=== PATIENT | female | born 1950 | race Caucasian/White ===

== ENCOUNTER 2016-09-21 05:40 | Outpatient (CLI) | payer MEDICARE, OTHER ==
[~2016-09-21] VITALS: Ht 154.9 cm; Wt 80.8 kg
[~2016-09-21 05:40] MED LIST: ACET-93 PO; ATOR10TA66 PO; DICL100G31 TP; ENOX80DI7 SC; FEXO180T84 PO; HYDR-3730 PO; HYDR-3812 PO; HYDR-3820 PO; HYDR200T46 PO; LEVO137T2 PO; LISI40TA PO; LORA1TAB PO; METF500T4 PO; NIFE60TA64 PO; OMEP20CA12 PO; TRAM50TA2 PO; VENL150C98 PO; VENL75CA93 PO; WARF-48 PO; WARF7.5T49 PO
[2016-09-21] MEDS ORDERED: LORA1TAB PO (12:52)
[2016-09-21] MEDS ORDERED: HYDR-3781 PO (12:52)
[2016-09-21] MEDS ORDERED: ATOR20TA66 PO (12:52)
[2016-09-21] MEDS ORDERED: RIZA10TA37 PO (12:52)
[2016-09-21] MEDS ORDERED: LEVO150T6 PO (12:52)
[2016-09-21 13:10] VITALS: BP 130/62
== END 2016-09-21 14:37 | disposition home or self-care (01) ==
LOC: PREOP 05:40
PROVIDERS: ATTEND Podiatrist
DX: Z01.818 Encounter for other preprocedural examination (principal); Z11.2 Encounter for screening for other bacterial diseases; T84.84XA Pain due to internal orthopedic prosthetic devices, implants and grafts, initial encounter
CPT/HCPCS: 87081

== ENCOUNTER 2016-09-23 09:05 | Day surgery (SDC) | payer MEDICARE, OTHER ==
[~2016-09-23] VITALS: Ht 154.9 cm; Wt 80.8 kg
[~2016-09-23 09:05] MED LIST changes: +ATOR20TA66 PO; +HYDR-3781 PO; +LEVO150T6 PO; +RIZA10TA37 PO
[2016-09-23 09:30] VITALS: BP 126/66
[2016-09-23] MEDS ORDERED: ceFAZolin 2 GM/NS 50 ML IV ONE (09:30)
[2016-09-23] MEDS ORDERED: FAMOTIDINE 20MG/2ML IV (PEPCID) ONE (09:35)
[2016-09-23] MEDS ORDERED: ONDANSETRON 4 MG/2 ML (SDV) Z0FRAN ONE ×2 (09:35→09:42)
[2016-09-23] MEDS ORDERED: BUPIVACAINE 0.5% 30 ML (SENSORCAINE) VIAL ONE (09:37)
[2016-09-23 09:41] LABS: PROTHROMBIN TIME PATIENT 12.8 SEC (12.2-14.7)
[2016-09-23] MEDS ORDERED: LACTATED RINGERS 1,000 ML IV PRN (09:41)
[2016-09-23] MEDS ORDERED: proPOfol 200 MG/20 ML (DIPRIVAN) VIAL IV ONE (09:42)
[2016-09-23] MEDS ORDERED: LACTATED RINGERS 1,000 ML IV ONE ×2 (09:42→10:32)
[2016-09-23] MEDS ORDERED: fentaNYL INJECTION 100 MCG/2 ML AMP ONE (09:42)
[2016-09-23] MEDS ORDERED: LIDOCAINE PF 2% 5 ML (XYLOCAINE) VIAL ONE (09:42)
[2016-09-23] MEDS ORDERED: SEVOFLURANE (ULTANE) 15 ML INHAL SOLN ONE ×6 (09:42→11:16)
[2016-09-23] MEDS ORDERED: ONDANSETRON 4 MG/2 ML (SDV) Z0FRAN IV ONE (09:45)
[2016-09-23] MEDS ORDERED: FAMOTIDINE 20MG/2ML IV (PEPCID) IV ONE (09:45)
[2016-09-23] MEDS ORDERED: MIDAZOLAM 2 MG/2 ML (VERSED) VIAL ONE (09:52)
--- NOTE | 2016-09-23 09:55 | Progress Note-Pre Operative ---
Pre-Operative Progress Note H&P Reviewed The H&P was reviewed, patient examined and no changes noted. Date Seen by Provider: Sep 23, 2016 Time Seen by Provider: :55 Date H&P Reviewed: Sep 23, 2016 Time H&P Reviewed: :55 Pre-Operative Diagnosis: Painful Retained Hardware RLE INES SANTILLAN DPM Sep 23, 2016 09:55
[2016-09-23] MEDS ORDERED: ENOX30DI9 SQ (10:05)
[2016-09-23] MEDS ORDERED: OXYC-201 PO (11:24)
--- NOTE | 2016-09-23 11:26 | Discharge Inst-Surgical ---
Discharge Inst-Surgical Consults/Follow Up Patient Instructions: KEEP DRESSING CLEAN DRY AND INTACT. DO NO REMOVE DRESSING. WEAR CAM BOOT AT ALL TIMES OF WEIGHT BEARING. FOLLOW UP WITH DR SANTILLAN IN 2 WEEKS. [phone] INES SANTILLAN DPM Sep 23, 2016 11:26
[2016-09-23] MEDS ORDERED: morphine INJ 10 MG/ML 1ML (SYR OR VIAL) IVP PRN (11:30)
[2016-09-23] MEDS ORDERED: ONDANSETRON 4 MG/2 ML (SDV) Z0FRAN IVP PRN (11:30)
[2016-09-23] MEDS ORDERED: morphine INJ 10 MG/ML 1ML (SYR OR VIAL) ONE (11:43)
[2016-09-23 12:30] VITALS: BP 124/70
[2016-09-23] MEDS ORDERED: HYDROcodone/APAP 10 MG/325 MG (LORTAB) TAB PO ONE (13:00)
[2016-09-23 13:05] VITALS: BP 122/69
[2016-09-23 13:50] VITALS: BP 116/66
[2016-09-23 14:04] VITALS: BP 116/66
--- NOTE | 2016-09-25 09:00 | OPERATIVE REPORT ---
PROCEDURE PHYSICIAN: INES SANTILLAN DATE OF PROCEDURE: 09/23/2016 SURGEON: Dr. Santillan TOOL AND FIXTURE REPAIRER: None. PREOPERATIVE DIAGNOSIS: Painful retained hardware of the right ankle. POSTOPERATIVE DIAGNOSIS: Painful retained hardware of the right ankle. PROCEDURE PERFORMED: Removal of hardware, right ankle. ANESTHESIA: General anesthesia. HEMOSTASIS: Pneumatic thigh tourniquet at 300 mmHg. BLOOD LOSS: Minimal. MATERIALS USED: 3-0 Vicryl, 3-0 nylon. INTRAOPERATIVE INJECTABLES: 20 mL of half percent Marcaine plain. COMPLICATIONS: None. INDICATIONS FOR THE PROCEDURE: The patient Ms. Serena Denson is a 65-year-old female with painful hardware of the right ankle. She has exhausted all conservative measures at this time, requiring surgical intervention. She has signed consent prior to being taken to the OR. DESCRIPTION OF THE PROCEDURE: Under mild sedation, the patient was brought into the OR and placed on the operating table in the supine position. Following administration of general anesthesia, a pneumatic thigh tourniquet was placed on the right lower extremity. The right lower extremity was scrubbed, prepped and draped in an aseptic manner. An appropriate timeout was performed. Right lower extremity was identified as the surgical site. Next, approximately 6 cm incision was made over the lateral aspect of the fibula. The incision was deepened down to the level of the hardware with care being taken to avoid all major vascular structures. All bleeders were cauterized and ligated as necessary. The hardware was then resected and passed from the surgical field. The wound was flushed with copious amounts sterile saline and the deep tissue was proximally closed with 3-0 Vicryl. Subcutaneous tissues approximated with 3-0 Vicryl and skin was approximated at the wound edges using 3-0 nylon. 20 mL of half percent Marcaine plain were injected in the foot and the foot was dressed with a dry sterile dressing, consisting of 4 x 4's, Kerlix, and an Altaf wrap. The patient tolerated the procedure and anesthesia well. She was transferred from OR to recovery with vital signs stable, neurovascular status intact to the right lower extremity. Job ID: [id number] Dictated Date: 09/23/2016 11:21:35 Home Service Advisor Date: 09/25/2016 08:50:32 / patricia
== END 2016-09-23 14:04 | disposition home or self-care (01) ==
LOC: SDC 09:05
PROVIDERS: ATTEND Podiatrist
DX: T84.84XA Pain due to internal orthopedic prosthetic devices, implants and grafts, initial encounter (principal); I10 Essential (primary) hypertension; E78.5 Hyperlipidemia, unspecified; G47.33 Obstructive sleep apnea (adult) (pediatric); M79.7 Fibromyalgia; E11.9 Type 2 diabetes mellitus without complications; K21.9 Gastro-esophageal reflux disease without esophagitis; Z86.718 Personal history of other venous thrombosis and embolism; Z79.01 Long term (current) use of anticoagulants; Z79.899 Other long term (current) drug therapy
CPT/HCPCS: 36415; 82962; 85610; 85730

== ENCOUNTER → 2016-10-09 | Outpatient (CLI) | payer MEDICARE, OTHER ==
[~2016-10-09] MED LIST changes: +ENOX30DI9 SQ; +OXYC-201 PO
== END ==
LOC: CARD 07:38
PROVIDERS: ATTEND Internal Medicine Cardiovascular Disease
DX: D68.61 Antiphospholipid syndrome (principal); R07.89 Other chest pain; E11.9 Type 2 diabetes mellitus without complications; E03.9 Hypothyroidism, unspecified; E78.2 Mixed hyperlipidemia; E66.9 Obesity, unspecified
CPT/HCPCS: 93306

== ENCOUNTER → 2016-10-19 | Outpatient (CLI) | payer MEDICARE, OTHER ==
[~2016-10-19] MED LIST changes: +REGADENOSON 0.4 MG/5 ML SYR (LEXISCAN) IV ONE
[2016-10-19] MEDS: CATHETER FLUSH 10 ML SYR IV PRN ×2 (08:35→09:23)
[2016-10-19 09:21] VITALS: BP 107/57
--- NOTE | 2016-10-20 01:16 | STRESS TEST ---
DATE OF SERVICE: 10/19/2016 LEXISCAN MYOVIEW STRESS TEST REPORT: REFERRING PHYSICIAN: Dr. Bermudez. IN SUMMARY: The patient was injected with 10.46 mCi of technetium-99 Myoview and the resting images were obtained. Then, the patient received 0.4 mg of Lexiscan followed by 32.0 mCi of technetium-99 Myoview. Throughout the test, there were no EKG changes. The resting and stress images were reviewed and compared in the short axis, horizontal long axis, and vertical long axis views. Review of the images showed breast attenuation affecting the quality of the images. No significant ischemia or infarction was seen. SSS is 5, SDS 5, TID value 0.97. On the gated images, the left ventricle appeared to be normal size with normal contractility. Calculated ejection fraction 75%. CONCLUSION: 1. The patient tolerated Lexiscan well. 2. Breast attenuation affecting the quality of the images with no significant ischemia or infarction on SPECT images. 3. Normal left ventricular size with normal contractility. Calculated ejection fraction 75%. Job ID: [id number] DocumentID: [id number] Dictated Date: 10/19/2016 11:56:01 Basting Marker Date: 10/19/2016 12:59:25 Dictated By: DYLAN SAHU MD
== END ==
LOC: CARD 08:17
PROVIDERS: ATTEND Internal Medicine Cardiovascular Disease
DX: D68.61 Antiphospholipid syndrome (principal); R07.89 Other chest pain; E11.9 Type 2 diabetes mellitus without complications; E03.9 Hypothyroidism, unspecified; E78.2 Mixed hyperlipidemia; E66.9 Obesity, unspecified
CPT/HCPCS: 78452; 93017

== ENCOUNTER → 2017-03-09 | Outpatient (CLI) | payer MEDICARE, OTHER ==
[~2017-03-09] MED LIST changes: +ACHD5005 PO; -HYDR-3812 PO; -REGADENOSON 0.4 MG/5 ML SYR (LEXISCAN) IV ONE
--- NOTE | 2017-03-09 09:36 | Diagnostic Imaging Report ---
EXAMINATION: Magnetic resonance imaging of the right knee without intravenous contrast DATE: March 09, 2017. COMPARISON: None. INDICATION: 66-year-old female, right knee pain. History of fall in January 2016. TECHNIQUE: Multiplanar, multisequence non contrast enhanced MR imaging was accomplished. FINDINGS: MENISCI: There is an oblique undersurface tear involving the body and posterior horn of the medial meniscus. There is approximately 2 mm medial meniscal extrusion. There is a small free edge tear involving the body of the lateral meniscus. LIGAMENTS AND TENDONS: The anterior and posterior cruciate ligaments are intact. The medial collateral ligament is intact. The iliotibial band, mid third lateral capsular ligament, fibular collateral ligament, biceps femoris tendon and conjoined tendon are intact. The quadriceps tendon and patella ligament are intact. JOINT: There is very mild thinning and superficial irregularity of the mid weightbearing portion of the medial femoral condyle and subjacent medial tibial plateau. There is no knee joint effusion, prominent synovitis, or intra-articular body. BONE: There is unremarkable bone marrow signal. Specifically, negative for fracture, osteomyelitis, osteonecrosis, or marrow replacing process. BURSAE AND SOFT TISSUES: There is nonspecific soft tissue edema adjacent to the [id number]-[id number] aspect of the medial collateral ligament complex and near the pes anserine tendon insertions. This may relate to edema relating to medial meniscal pathology. IMPRESSION: 1. Oblique undersurface tear involving the body and posterior horn of the medial meniscus with 2 mm medial meniscal extrusion. 2. Very small free edge tear involving the body of the lateral meniscus. 3. Intact anterior and posterior cruciate ligaments. 4. Minimal medial compartment osteoarthritis. No knee joint effusion. 5. No acute fracture or bone contusion. Dictated by: Dictated on workstation # [id number]
== END ==
LOC: RAD 08:14
PROVIDERS: ATTEND Physician Assistant
DX: S83.241A Other tear of medial meniscus, current injury, right knee, initial encounter (principal); S83.281A Other tear of lateral meniscus, current injury, right knee, initial encounter; M17.11 Unilateral primary osteoarthritis, right knee; W19.XXXA Unspecified fall, initial encounter
CPT/HCPCS: 73721

== ENCOUNTER → 2017-07-13 | Outpatient (CLI) | payer MEDICARE, OTHER ==
[~2017-07-13] MED LIST changes: +CATHETER FLUSH 10 ML SYR IV PRN; +IOHEXOL 350 MG/ML 100 ML (OMNIPAQUE 350) VIAL IV ONE; -METF500T4 PO; +METF500T5 PO; +NS 250 ML (IVPB) BAG IV ONE; +RECEIVED CONTRAST (Hold Metformin) IV SCH
--- NOTE | 2017-07-13 10:12 | Diagnostic Imaging Report ---
PROCEDURE: CT abdomen with and without contrast. TECHNIQUE: Multiple contiguous axial CT images of the abdomen were obtained prior to and after intravenous administration of iodinated contrast. INDICATION: Adrenal gland mass. COMPARISON: None. FINDINGS: Included portions of the lung bases are clear. Adrenal glands have an unremarkable CT appearance. No distinct adrenal gland masses are identified. Kidneys show focal area of cortical thinning posteriorly involving the inferior pole on the left. Otherwise, kidneys are unremarkable. The liver, spleen, and pancreas have a normal CT appearance. Included small bowel loops are nondistended. Cecum and appendix are not included on this exam. There is scattered colonic diverticulosis. Note is made of focal area of pericolonic fat stranding surrounding a diverticulum of the ascending colon near the hepatic flexure (image 62, series 3). There is no loculated fluid collection, free fluid, nor free air within the abdomen. There is no pneumatosis nor portal venous gas. No abnormal mesenteric or retroperitoneal adenopathy is seen. There is moderate calcified aortic and arterial atherosclerosis. Bony structures show no acute abnormalities. IMPRESSION: 1. Unremarkable CT appearance of the adrenal glands. 2. Colonic diverticulosis with focal stranding surrounding the distal ascending colon. Appearance is suggestive of acute diverticulitis. Correlation with right upper abdominal quadrant pain is recommended. Colonic malignancy may also present in a similar manner. Further evaluation with colonoscopy or contrast enema is recommended. 3. Focal renal cortical thinning involving the left kidney as described above. Findings can be seen with prior infection or infarction. Dictated by: Dictated on workstation # [id number]
== END ==
LOC: RAD 07:37
PROVIDERS: ATTEND Internal Medicine
DX: E27.9 Disorder of adrenal gland, unspecified (principal); K57.30 Diverticulosis of large intestine without perforation or abscess without bleeding; I70.0 Atherosclerosis of aorta; N28.89 Other specified disorders of kidney and ureter
CPT/HCPCS: 74170

== ENCOUNTER 2018-05-24 05:42 | Outpatient (CLI) | payer MEDICARE, OTHER ==
[~2018-05-24] VITALS: Ht 154.9 cm; Wt 77.2 kg
[~2018-05-24 05:42] MED LIST changes: -CATHETER FLUSH 10 ML SYR IV PRN; -IOHEXOL 350 MG/ML 100 ML (OMNIPAQUE 350) VIAL IV ONE; +METF-397 PO; -METF500T5 PO; -NS 250 ML (IVPB) BAG IV ONE; -OXYC-201 PO; +OXYC1TAB16 PO; -RECEIVED CONTRAST (Hold Metformin) IV SCH
[2018-05-24] MEDS ORDERED: WARF6TAB49 PO ×2 (10:18)
== END 2018-05-24 10:22 | disposition home or self-care (01) ==
LOC: PREOP 05:42
PROVIDERS: ATTEND Specialist
DX: Z01.818 Encounter for other preprocedural examination (principal)

== ENCOUNTER 2018-05-25 11:26 | Day surgery (SDC) | payer MEDICARE, OTHER ==
[~2018-05-25] VITALS: Ht 154.9 cm; Wt 77.2 kg
[~2018-05-25 11:26] MED LIST changes: +WARF6TAB49 PO
[2018-05-25 11:30] VITALS: BP 140/73
[2018-05-25] MEDS ORDERED: MOXIFLOXACIN OPHTH SOLN 5 MG/ML 0.3 ML SYRINGE OP ONE (11:45)
[2018-05-25] MEDS ORDERED: POVIDONE (BETADINE) OPHTH SOLN 5% 30 ML OP ONE (11:45)
[2018-05-25] MEDS ORDERED: TIMOLOL MALEATE 0.5% 5 ML (TIMOPTIC) BTL OU PRN (11:45)
[2018-05-25] MEDS ORDERED: LIDOCAINE PF 1% 2 ML AMP IR PRN (11:45)
[2018-05-25] MEDS: TETRACAINE 0.5% OPHTH SOLN 4 ML BTL (SINGLE DOSE ONLY) OU PRN ×4 (11:50→12:15)
[2018-05-25] MEDS ORDERED: MIDAZOLAM 2 MG/2 ML (VERSED) VIAL ONE (11:59)
[2018-05-25] MEDS: CYCLOPENTOLATE 1% (CYCLOGYL) 2 ML DROPS OP SCH ×3 (12:02→12:15)
[2018-05-25] MEDS: PHENYLEPHRINE 10% OPHTH (NEO-SYN) 5 ML BTL OU SCH ×3 (12:02→12:15)
--- NOTE | 2018-05-25 12:09 | Ophthalmologist Pre-Op Note ---
Pre-Operative Progress Note H&P Reviewed The H&P was reviewed, patient examined and no changes noted. Date H&P Reviewed: May 25, 2018 Time H&P Reviewed: 12:09 Pre-Op Dx Cataract, Left Eye KATIUSKA SPANN MD May 25, 2018 12:09
--- NOTE | 2018-05-25 12:41 | Ophthalmology Operative Report ---
Cataract removal/placement IOL PREOPERATIVE DIAGNOSIS: Cataract Left Eye POSTOPERATIVE DIAGNOSIS: Cataract Left Eye PROCEDURE: Cataract removal and placement of posterior chamber implant, left eye SURGEON: Mike Spann ANESTHESIA: Topical with sedation COMPLICATIONS: None ESTIMATED BLOOD LOSS: Minimal DESCRIPTION OF PROCEDURE: After proper informed consent was obtained, the patient, a 67 female, was taken to the Operating Room and the left eye was anesthetized with tetracaine. The left eye was then prepped and draped in the usual manner. A wire lid speculum was placed. A paracentesis was made at the left hand position. Preservative free lidocaine was injected into the anterior chamber followed by viscoelastic. A clear corneal incision was made in the temporal position. A capsulorrhexis was preformed and the central nuclear and cortical material were removed. The posterior capsule was polished and an Jose R 18.0 AU00T0 was placed into the capsular bag. The residual viscoelastic was aspirated and balanced saline solution was injected into the anterior chamber. Moxifloxacin was injected into the anterior chamber. The wound was checked and found to be water tight. The patient tolerated the procedure well without complications. MIKE SPANN MD May 25, 2018 12:41
[2018-05-25 12:50] VITALS: BP 140/73
--- NOTE | 2018-05-25 13:12 | Anesthesia-General Post-Op ---
MAC Patient Condition Mental Status/LOC: Same as Preop Cardiovascular: Satisfactory Nausea/Vomiting: Absent Respiratory: Satisfactory Pain: Controlled Complications: Absent Post Op Complications Complications None Follow Up Care/Instructions Patient Instructions None needed. Anesthesiology Discharge Order Discharge Order Patient is doing well, no complaints, stable vital signs, no apparent adverse anesthesia problems. No complications reported per nursing. BELINDA CORDOVA CRNA May 25, 2018 13:12
== END 2018-05-25 12:50 | disposition home or self-care (01) ==
LOC: SDC 11:26
PROVIDERS: ATTEND Specialist
DX: H25.12 Age-related nuclear cataract, left eye (principal); I10 Essential (primary) hypertension; F41.9 Anxiety disorder, unspecified; F32.9 Major depressive disorder, single episode, unspecified; K21.9 Gastro-esophageal reflux disease without esophagitis; E11.9 Type 2 diabetes mellitus without complications; M19.91 Primary osteoarthritis, unspecified site; Z79.01 Long term (current) use of anticoagulants; Z79.899 Other long term (current) drug therapy; Z87.891 Personal history of nicotine dependence

== ENCOUNTER 2018-06-01 05:40 | Outpatient (CLI) | payer MEDICARE, OTHER ==
[~2018-06-01] VITALS: Ht 154.9 cm; Wt 77.2 kg
== END 2018-06-01 13:35 | disposition home or self-care (01) ==
LOC: PREOP 05:40
PROVIDERS: ATTEND Specialist
DX: Z01.818 Encounter for other preprocedural examination (principal)

== ENCOUNTER 2018-06-03 08:18 | Day surgery (SDC) | payer MEDICARE, OTHER ==
[~2018-06-03] VITALS: Ht 154.9 cm; Wt 77.2 kg
[2018-06-03] MEDS ORDERED: LIDOCAINE PF 1% 2 ML AMP IR PRN (08:30)
[2018-06-03] MEDS ORDERED: POVIDONE (BETADINE) OPHTH SOLN 5% 30 ML OP ONE (08:30)
[2018-06-03] MEDS ORDERED: MOXIFLOXACIN OPHTH SOLN 5 MG/ML 0.3 ML SYRINGE OP ONE (08:30)
[2018-06-03] MEDS ORDERED: TIMOLOL MALEATE 0.5% 5 ML (TIMOPTIC) BTL OU PRN (08:30)
[2018-06-03] MEDS: TETRACAINE 0.5% OPHTH SOLN 4 ML BTL (SINGLE DOSE ONLY) OU PRN ×4 (08:34→08:55)
[2018-06-03 08:35] VITALS: BP 114/64
[2018-06-03] MEDS: PHENYLEPHRINE 10% OPHTH (NEO-SYN) 5 ML BTL OU SCH ×3 (08:42→08:55)
[2018-06-03] MEDS: CYCLOPENTOLATE 1% (CYCLOGYL) 2 ML DROPS OP SCH ×3 (08:42→08:55)
[2018-06-03] MEDS ORDERED: MIDAZOLAM 2 MG/2 ML (VERSED) VIAL ONE (08:52)
--- NOTE | 2018-06-03 09:08 | Ophthalmologist Pre-Op Note ---
Pre-Operative Progress Note H&P Reviewed The H&P was reviewed, patient examined and no changes noted. Date H&P Reviewed: Jun 03, 2018 Time H&P Reviewed: 09:08 Pre-Op Dx Cataract, Right Eye KATIUSKA SPANN MD Jun 03, 2018 09:08
--- NOTE | 2018-06-03 09:31 | Ophthalmology Operative Report ---
Cataract removal/placement IOL PREOPERATIVE DIAGNOSIS: Cataract Right Eye POSTOPERATIVE DIAGNOSIS: Cataract Right Eye PROCEDURE: Cataract removal and placement of posterior chamber implant, right eye SURGEON: Mike Spann ANESTHESIA: Topical with sedation COMPLICATIONS: None ESTIMATED BLOOD LOSS: Minimal DESCRIPTION OF PROCEDURE: After proper informed consent was obtained, the patient, a 67 female, was taken to the Operating Room and the right eye was anesthetized with tetracaine. The right eye was then prepped and draped in the usual manner. A wire lid speculum was placed. A paracentesis was made at the left hand position. Preservative free lidocaine was injected into the anterior chamber followed by viscoelastic. A clear corneal incision was made in the temporal position. A capsulorrhexis was preformed and the central nuclear and cortical material were removed. The posterior capsule was polished and Jose R 17.5 AU00T0 IOL was placed into the capsular bag. The residual viscoelastic was aspirated and balanced saline solution was injected into the anterior chamber. Moxifloxacin was injected into the anterior chamber. The wound was checked and found to be water tight. The patient tolerated the procedure well without complications. MIKE SPANN MD Jun 03, 2018 09:30
[2018-06-03 09:40] VITALS: BP 125/81
== END 2018-06-03 09:40 | disposition home or self-care (01) ==
LOC: SDC 08:18
PROVIDERS: ATTEND Specialist
DX: H25.11 Age-related nuclear cataract, right eye (principal); E11.36 Type 2 diabetes mellitus with diabetic cataract; I10 Essential (primary) hypertension; E03.9 Hypothyroidism, unspecified; E78.00 Pure hypercholesterolemia, unspecified; K21.9 Gastro-esophageal reflux disease without esophagitis; F41.9 Anxiety disorder, unspecified; F32.9 Major depressive disorder, single episode, unspecified; Z87.891 Personal history of nicotine dependence; Z79.01 Long term (current) use of anticoagulants; Z79.899 Other long term (current) drug therapy

== ENCOUNTER → 2018-12-09 | Outpatient (CLI) | payer MEDICARE, OTHER ==
[~2018-12-09] MED LIST changes: -OMEP20CA12 PO; +OMEP20CA13 PO
--- NOTE | 2018-12-09 11:24 | Diagnostic Imaging Report ---
Clinical indication: Patient with severe headache, hypertension, anticoagulants and cluster headaches. No history of trauma. Exam: Axial CT scan of the brain performed without IV contrast. Auto Exposure Controls were utilized during the CT exam to meet ALARA standards for radiation dose reduction. Comparison: None. Findings: There is no evidence of acute cerebral infarct, intracranial hemorrhage, or gross mass effect. The brain parenchymal volume appears appropriate for patient's age. There is normal leon-white matter distinction. There is no significant midline shift or herniation. Mild calcification of the globus pallidus regions bilaterally. There is no evidence of hydrocephalus. The basal cisterns are unremarkable. The skull, extracranial soft tissue, and orbits are unremarkable. The paranasal sinuses are unremarkable. Temporal bones show no significant abnormality. Impression: Unremarkable CT scan of the brain for age. Dictated by: Dictated on workstation # [id number]
== END ==
LOC: RAD 11:04
PROVIDERS: ATTEND Nurse Practitioner Family
DX: I10 Essential (primary) hypertension (principal); R51 Headache; Z79.01 Long term (current) use of anticoagulants
CPT/HCPCS: 70450

== ENCOUNTER → 2019-01-11 | Outpatient (CLI) | payer MEDICARE, OTHER ==
[~2019-01-11] VITALS: Ht 155 cm; Wt 82.0 kg
[~2019-01-11] MED LIST changes: +CATHETER FLUSH 10 ML SYR IV PRN; +REGADENOSON 0.4 MG/5 ML SYR (LEXISCAN) IV ONE
--- NOTE | 2019-01-11 16:16 | STRESS TEST ---
DATE OF SERVICE: 01/11/2019 LEXISCAN MYOVIEW STRESS TEST REFERRING PHYSICIAN: Kristie Coleman MD. Baseline heart rate is 58, baseline blood pressure 160/97. Baseline EKG is sinus rhythm with no ischemic changes. In summary, the patient received 10.62 mCi of technetium-99 Myoview and the resting images were obtained. Then, the patient received 0.4 mg of Lexiscan followed by 28.9 mCi of technetium-99 Myoview. Throughout the test, there were no EKG changes. The resting and stress images were reviewed and compared in the short axis, horizontal long axis, and vertical long axis views. Review of the images showed breast attenuation with mild decreased uptake involving the mid to apical anterolateral and inferolateral wall with mild reversibility. SSS is 7, SDS 7, TID value 1.05. On the gated images, the left ventricle appeared to be in normal size with normal contractility. Calculated ejection fraction is 70%. CONCLUSION: 1. The patient tolerated Lexiscan well. 2. Breast attenuation with mild ischemia involving the mid to apical anterolateral and inferolateral wall. 3. Normal left ventricular size with normal contractility. Calculated ejection fraction is 70%. Job ID: [id number] DocumentID: [id number] Dictated Date: 01/11/2019 15:51:22 Aquatic Laborer Date: 01/11/2019 16:15:30 Dictated By: DYLAN SAHU MD
== END ==
LOC: CARD 12:20
PROVIDERS: ATTEND Internal Medicine Cardiovascular Disease
DX: I25.9 Chronic ischemic heart disease, unspecified (principal); I65.29 Occlusion and stenosis of unspecified carotid artery; E11.9 Type 2 diabetes mellitus without complications; E78.2 Mixed hyperlipidemia; I10 Essential (primary) hypertension
CPT/HCPCS: 78452; 93017

== ENCOUNTER 2019-01-18 12:22 | Day surgery (SDC) | payer MEDICARE, OTHER ==
[2019-01-18] VITALS (10 sets, daily range): BP systolic 144–175; BP diastolic 70–86
[~2019-01-18] VITALS: Ht 154 cm; Wt 81.8 kg
[~2019-01-18 12:22] MED LIST changes: -CATHETER FLUSH 10 ML SYR IV PRN; -REGADENOSON 0.4 MG/5 ML SYR (LEXISCAN) IV ONE
[2019-01-18] MEDS ORDERED: LIDOCAINE 1% INJ 20 ML 20 ML VIAL ONE (12:26)
[2019-01-18] MEDS ORDERED: NS IV 1000 ML 1,000 ML ONE (12:26)
[2019-01-18] MEDS ORDERED: HEParin (CATH LAB) 2,000 ML IV ONE (12:27)
[2019-01-18] MEDS ORDERED: NS IV 1000 ML 1,000 ML IV SCH ×2 (12:31→16:30)
[2019-01-18 12:54] LABS: HEMOGLOBIN 13.2 G/DL (11.5-16.0); MEAN PLATELET VOLUME 10.3 FL (7.4-10.4); RED CELL DISTRIBUTION WIDTH 16.3 % (10.0-14.5); WHITE BLOOD COUNT 5.3 10^3/uL (4.3-11.0)
[2019-01-18 13:05] LABS: BILIRUBIN,URINE NEGATIVE (NEGATIVE); CLARITY,URINE CLEAR; COLOR,URINE YELLOW; GLUCOSE, URINE (UA) NEGATIVE (NEGATIVE); KETONES,URINE NEGATIVE (NEGATIVE); LEUKOCYTE ESTERASE ,URINE NEGATIVE (NEGATIVE); NITRITE,URINE NEGATIVE (NEGATIVE); PH,URINE 5.5 (5-9); PROTEIN,URINE NEGATIVE (NEGATIVE)
--- NOTE | 2019-01-18 13:08 | Diagnostic Imaging Report ---
INDICATION: Chest pressure and pain, preop for coronary catheterization. Frontal chest obtained at 12:47 p.m. Heart and mediastinal silhouette are normal in appearance. The lungs are clear. There is no pneumothorax or pleural fluid. IMPRESSION: Negative chest. Dictated by: Dictated on workstation # [id number]
[2019-01-18 13:10] LABS: INR 1.1 (0.8-1.4); PROTHROMBIN TIME PATIENT 14.5 SEC (12.2-14.7)
[2019-01-18 13:17] LABS: ALBUMIN 4.4 GM/DL (3.2-4.5); BILIRUBIN,TOTAL 0.7 MG/DL (0.1-1.0); CALCIUM 9.8 MG/DL (8.5-10.1); CREATININE SERUM 1.05 MG/DL (0.60-1.30); POTASSIUM 3.7 MMOL/L (3.6-5.0); TOTAL PROTEIN 7.7 GM/DL (6.4-8.2)
[2019-01-18] MEDS ORDERED: CYCL5TAB PO (13:20)
[2019-01-18] MEDS ORDERED: METO-387 PO (13:21)
[2019-01-18] MEDS ORDERED: VALA500T4 PO (13:21)
[2019-01-18] MEDS ORDERED: GLIP5TAB13 PO (13:23)
[2019-01-18] MEDS ORDERED: TIMO5DRO31 OU (13:23)
[2019-01-18] MEDS ORDERED: CYCL1DRO OU (13:23)
[2019-01-18 13:29] LABS: BACTERIA,URINE TRACE /HPF
[2019-01-18] MEDS ORDERED: ACET-93 PO (13:32)
[2019-01-18] MEDS ORDERED: CALC10009 PO (13:32)
[2019-01-18] MEDS ORDERED: FLU QUADRIvalent (5+ YOA) 2019-2020 (AFLURIA) 0.5 ML IM ONE (14:00)
--- NOTE | 2019-01-18 14:26 | NUR ---
SPOKE WITH PT (SHE HAD HER BOTTLES) WELL CALLING [facility] AND [facility] TO COMPLETE THE MED REC. PT WAS ABLE TO TELL ME ALL HER MEDS AND HOW/WHEN SHE TAKES EACH. SOME OF HER MEDICATIONS ARE PAST DUE ON REFILLS (OVER A YEAR OLD) BUT PT STILL HAS TABS/CAPS IN THE BOTTLES AND SAYS SHE TAKES THEM ALL EVERYDAY. WARFARIN: 7MG ON SUN,TU,THURS AND SAT 6MG ON MON,WED AND WED THE FOLLOWING ARE FILL DATES FROM THE PHARMACIES: 05-03-2017 VENLAFAXINE 150MG #90/90DS (PT ALSO HAD AN RX FOR THE 75MG BUT SAYS SHE IS NO LONGER TAKING 06-16-2017 RESTASIS 08-16-2018 GLIPIZIDE #180/90DS 09-23-2018 TIMOLOL #1 BOTTLE (15ML)/90DS 09-27-2018 VALACYCLOVIR #30 11-29-2018 LEVOTHYROXINE #30/30DS 11-29-2018 LORAZEPAM #30 11-29-2018 LISINOPRIL #30/30DS 12-09-2018 CYCLOBENZAPRINE #30 01-13-2019 WARFARIN 5MG #90 01-17-2019 WARFARIN 1MG #30 01-17-2019 METOPROLOL #30/30DS 01-17-2019 ATORVASTATIN #30/30DS OTC MEDS: TYLENOL TUMS DOMINIQUE OMEPRAZOLE (PT HAD A BOTTLE FROM 10-10-2016, BUT COMMENTED THAT SHE HAD BROUGHT SOME AND WAS SWITCHING BETWEEN THE OTC AND THE RX)
[2019-01-18] MEDS ORDERED: WARF1TAB82 PO ×2 (14:41)
[2019-01-18] MEDS ORDERED: WARF-48 PO (14:41)
[2019-01-18] MEDS ORDERED: fentaNYL INJECTION 100 MCG/2 ML AMP ONE (15:42)
[2019-01-18] MEDS ORDERED: MIDAZOLAM 5 MG/5 ML (VERSED) VIAL ONE (15:42)
[2019-01-18] MEDS ORDERED: HEParin 1000 UNIT/ML (10ML VIAL) FOR BOLUS ONE (15:43)
[2019-01-18] MEDS ORDERED: PATIENT MAY USE OWN MEDS, ALL PO SCH (16:30)
--- NOTE | 2019-01-18 16:33 | Cardiac Procedure Note-CS/ASA ---
Pre-Procedure Note Pre-Op Procedure Note H&P Reviewed The H&P was reviewed, patient examined and no changes noted. Date H&P Reviewed: Jan 18, 2019 Time H&P Reviewed: 13:00 Conscious Sedation Pre-Proced Time 13:00 ASA Score 3 For ASA 3 and 4: Consider anesthesia and medical clearance. Also, for patients with a history of failed moderate sedation consider anesthesia. Airway Lungs Heart ASA score ASA 1: a normal healthy patient ASA 2: a patient with a mild systemic disease (mid diabetes, controlled hypertension, obesity x ASA 3: a patient with a severe systemic disease that limits activity (angina, COPD, prior Myocardial infarction) ASA 4: a patient with an incapacitating disease that is a constant threat to life (CHF, renal failure) ASA 5: a moribund patient not expected to survive 24 hrs. (ruptured aneurysm) ASA 6: a declared brain- patient whose organs are being harvested. For emergent operations, add the letter E after the classification Mallampati Classification Grade 3 Sedation Plan Analgesia, Amnesia, Plan communicated to team members, Discussed options with patient/fam, Discussed risks with patient/fam The patient is an appropriate candidate to undergo the planned procedure, sedation, and anesthesia. The patient immediately re-assessed prior to indication. DYLAN SAHU MD Jan 18, 2019 16:33 POS
--- NOTE | 2019-01-18 16:34 | Discharge Inst-Post CATH ---
Discharge Inst-CATH/EP Problems Reviewed?: Yes Post Cardiac Cath/EP D/C Inst Follow Up/Plan appointment with Dr. Campo's office in 2-4 weeks <b>CARDIAC CATH/EP PROCEDURE DISCHARGE INSTRUCTIONS</b> ACTIVITY * Go Home directly and rest. * Limit activity of the leg (or wrist if it was used) for 7 days including aerobics, swimming, jogging, bicycling, etc. * Restrict stair-climbing for 7 days if possible, if not, climb up with your non-cath leg, then bring together on the same step. * Avoid lifting, pushing, pulling or excessive movement of the affected extremity for 7 days. * Customary sexual activity may be resumed after 2 days-use caution not to use a position that strains or causes pain to the affected extremity. * No driving for 24 hours. * NO SMOKING. * Avoid straining for bowel movements for 7 days. * Gentle walking on level ground is allowed. * Returning to work will depend on the type of procedure and the results. Your doctor will discuss this with you. CALL YOUR DOCTOR FOR ANY OF THE FOLLOWING: *If bleeding from the puncture site occurs- Apply gentle pressure to site with clean cloth and call your doctor or EMS. * If a knot or lump forms under the skin, increases in size, or causes pain. * If bruising appears to be worsening or moving further down your leg instead of disappearing. * Temperature above 101 F. CARE OF YOUR GROIN INCISION; * Bruising or purple discoloration of the skin near the puncture site is common. * You may shower only, no bathtub bathing for 5 days. Be careful to avoid slipping as your leg may feel stiff. * If a closure device was used on your femoral artery, please see the attached guide regarding care of the device and your leg. * Leave dressing on FOR 24 hours. CARE OF YOUR WRIST INCISION; * Bruising or purple discoloration of the skin near the puncture site is common. * You may shower. * DO NOT submerge wrist. * Leave dressing on FOR 24 hours. DYLAN CAMPO MD Jan 18, 2019 16:34 POS
--- NOTE | 2019-01-18 16:37 | Cardiac Cath Report ---
Cardiac Cath Report Physician (s)/Project Construction Assistant Manager (s) Physician DYLAN SAHU MD Pre-Procedure Diagnosis Pre-Procedure Diagnosis: Coronary artery disease Post-Procedure Note Procedure Start Date: Jan 18, 2019 Name of Procedure: Left heart catheterization Findings/Procedure Note PROCEDURE NOTE: 68-year-old lady with history of hypertension, hyperlipidemia, had an abnormal stress test, scheduled for cardiac catheterization possible PTCA. After explaining the procedure to the patient, all pros and cons were explained, all questions were answered. The patient signed the consent and then she was placed on the cardiac catheterization laboratory. Groin was prepped SL fashion local anesthesia was used. Sheath placed in the Right femoral artery. Jim right and left catheter were used to access the coronary system. Pigtail was used to access the left ventricular cavity. Left ventriculogram was not done, pressure was measured At the end of the procedure the sheath was removed. manual pressure applied FINDINGS: Hemodynamics LV 150/16, end-diastolic pressure of 60 Aorta 155/71 mean of 106 ANATOMY: Left Main is free of obstructive disease Left Anterior Descending has mild disease nonobstructive disease Left Circumflex has mild disease nonobstructive disease Right Coronory Artery has mild proximal disease nonobstructive disease LV Gram was not done, pressure was measured CONCLUSION: 1. Mild coronary artery disease nonobstructive disease 2. Normal left ventricular end-diastolic pressure 3. Patient has allergy to multiple metals including stent materials DISCUSSION AND RECOMMENDATION: medical therapy is recommended no intervention is warranted Anesthesia Type: Conscious Sedation Estimated blood loss (mL): 15 ml Contrast Amount: 42 ml Total Radiation Dose: 301 mGy Post-Procedure Diagnosis Post-operative diagnosis: Chest pain Coronary artery disease Hypertension Hyperlipidemia DYLAN SAHU MD Jan 18, 2019 16:37 POS
[2019-01-18] MEDS ORDERED: LORazepam 1 MG (ATIVAN) TAB PO PRN ×2 (16:45→19:15)
[2019-01-18] MEDS ORDERED: NON-FORMULARY MEDICATION 1 EA EA (Acetaminophen 1,000 MG) PO PRN (16:45)
[2019-01-18] MEDS ORDERED: NON-FORMULARY MEDICATION 1 EA EA (Rizatriptan Benzoate (Rizatriptan) 10 MG) PO SCH (16:45)
[2019-01-18] MEDS ORDERED: NON-FORMULARY MEDICATION 1 EA EA (Cyclobenzaprine HCl 5 MG) PO PRN (16:45)
[2019-01-18] MEDS ORDERED: VALACYCLOVIR 500 MG TAB (VALTREX) PO PRN (16:45)
[2019-01-18] MEDS ORDERED: NON-FORMULARY MEDICATION 1 EA EA (Fexofenadine HCl (Allegra Allergy) 180 MG) PO PRN (16:45)
[2019-01-18] MEDS ORDERED: ARTIFICAL TEARS 0.4 ML UNIT DOSE (REFRESH PLUS) OU PRN (17:45)
[2019-01-18] MEDS ORDERED: LORATADINE (CLARITIN) 10 MG TAB PO PRN (17:45)
--- NOTE | 2019-01-18 17:50 | NUR ---
pt complaining of nausea, denies CP. Diet sprite and crackers given. Pt requesting zofran. Dr Campo notified, new orders received.
[2019-01-18] MEDS ORDERED: warFARin 5 MG (COUMADIN) TAB PO SCH ×2 (18:00→18:30)
[2019-01-18] MEDS ORDERED: warFARin 1 MG (COUMADIN) TAB PO SCH ×2 (18:00→18:30)
[2019-01-18] MEDS ORDERED: ACETAMINOPHEN 500 MG TAB (TYLENOL) PO PRN (18:00)
[2019-01-18] MEDS ORDERED: ONDANSETRON 4 MG/2 ML (SDV) Z0FRAN IVP ONE (18:00)
[2019-01-18] MEDS ORDERED: NON-FORMULARY MEDICATION 1 EA EA (Cyclosporine (Restasis) 1 EACH) OU SCH (21:00)
[2019-01-18] MEDS ORDERED: glipiZIDE 5 MG (GLUCOTROL) TAB PO SCH (21:00)
--- NOTE | 2019-01-18 22:03 | NUR ---
PT UP AND WALKED AT APPROX. 2115. NO ISSUES WITH PAIN OR PROCEDURE SITE. PT STATES NO COMPLAINTS. D/C'D TO HOME- FRIEND IS ON HER WAY TO RECORDER [employer] PROSPECTING THE PT. DISCHARGE INFORMATION GIVEN AND QUESTIONS ANSWERED. PT STATES SHE IS THANKFUL OF THE CARE RECEIVED BY ALL DEPARTMENTS.
[2019-01-19] MEDS ORDERED: glipiZIDE 5 MG (GLUCOTROL) TAB PO SCH (06:30)
[2019-01-19] MEDS ORDERED: LEVOTHYROXINE 150 MCG (LEVOTHROID) TAB PO SCH (06:30)
[2019-01-19] MEDS ORDERED: VENlafaxine XR 75 MG (EFFEXOR XR) CAP PO SCH (07:00)
[2019-01-19] MEDS ORDERED: PANTOPRAZOLE 20 MG TABLET (PROTONIX) PO SCH (07:00)
[2019-01-19] MEDS ORDERED: NON-FORMULARY MEDICATION 1 EA EA (Timolol Maleate 1 DROP) OU SCH (09:00)
[2019-01-19] MEDS ORDERED: OMEPRAZOLE 20 MG (PriLOSEC) CAP NON-FORMULARY PO SCH (09:00)
[2019-01-19] MEDS ORDERED: lisINopril 40 MG (PRINIVIL) TABLET PO SCH (09:00)
[2019-01-19] MEDS ORDERED: NON-FORMULARY MEDICATION 1 EA EA (Venlafaxine HCl (Venlafaxine HCl ER) 150 MG) PO SCH (09:00)
[2019-01-19] MEDS ORDERED: warFARin 1 MG (COUMADIN) TAB PO SCH (18:00)
== END 2019-01-18 21:45 | disposition home or self-care (01) ==
LOC: CATH 12:22 → CSD 17:05 → CATH 21:45
PROVIDERS: ATTEND Internal Medicine Cardiovascular Disease
DX: I25.10 Atherosclerotic heart disease of native coronary artery without angina pectoris (principal); I10 Essential (primary) hypertension; E78.2 Mixed hyperlipidemia; E11.9 Type 2 diabetes mellitus without complications; E03.9 Hypothyroidism, unspecified; I65.23 Occlusion and stenosis of bilateral carotid arteries; D68.61 Antiphospholipid syndrome; M79.671 Pain in right foot; M79.672 Pain in left foot; K21.9 Gastro-esophageal reflux disease without esophagitis; Z79.84 Long term (current) use of oral hypoglycemic drugs; Z79.899 Other long term (current) drug therapy; Z79.01 Long term (current) use of anticoagulants; Z88.5 Allergy status to narcotic agent; Z88.2 Allergy status to sulfonamides; Z87.891 Personal history of nicotine dependence; Z82.49 Family history of ischemic heart disease and other diseases of the circulatory system
CPT/HCPCS: 36415; 71045; 80053; 80061; 81000; 85027; 85610; 85730; 87081; 93458

== ENCOUNTER 2019-07-25 13:15 | Outpatient (RCR) | payer MEDICARE, OTHER ==
[~2019-07-25] VITALS: Ht 154.9 cm; Wt 82.6 kg
[2019-07-25 12:59] VITALS: BP 137/78
[~2019-07-25 13:15] MED LIST changes: +ACHYD1T PO; +CALC10009 PO; +CYCL1DRO OU; +CYCL5TAB PO; +GLIP5TAB13 PO; -HYDR-3820 PO; +MTP25TSR PO; +NIFE-24 PO; -NIFE60TA64 PO; -OMEP20CA13 PO; +OMEP20CA18 PO; +TIMO5DRO31 OU; -TRAM50TA2 PO; +TRM50T PO; +VALA500T4 PO; +WARF1TAB82 PO
[2019-07-25 14:03] LABS: BASOPHILS # (AUTO) 0.1 10^3/uL (0.0-0.1); BASOPHILS % (AUTO) 1 % (0-10); EOSINOPHILS # (AUTO) 0.2 10^3/uL (0.0-0.3); EOSINOPHILS % (AUTO) 4 % (0-10); HEMATOCRIT 41 % (35-52); HEMOGLOBIN 12.8 G/DL (11.5-16.0); LYMPHOCYTES # (AUTO) 1.3 X 10^3 (1.0-4.0); LYMPHOCYTES % (AUTO) 25 % (12-44); MEAN CORPUSCULAR HEMOGLOBIN 25 PG (25-34); MEAN CORPUSCULAR HGB CONC 32 G/DL (32-36); MEAN CORPUSCULAR VOLUME 81 FL (80-99); MEAN PLATELET VOLUME 10.7 FL (7.4-10.4); MONOCYTES # (AUTO) 0.4 X 10^3 (0.0-1.0); MONOCYTES % (AUTO) 8 % (0-12); NEUTROPHILS # (AUTO) 3.2 X 10^3 (1.8-7.8); NEUTROPHILS % (AUTO) 63 % (42-75); PLATELET COUNT 276 10^3/uL (130-400); RED CELL DISTRIBUTION WIDTH 16.4 % (10.0-14.5); WHITE BLOOD COUNT 5.2 10^3/uL (4.3-11.0)
[2019-07-25 14:04] LABS: BILIRUBIN,URINE NEGATIVE (NEGATIVE); CLARITY,URINE CLEAR; COLOR,URINE YELLOW; GLUCOSE, URINE (UA) NEGATIVE (NEGATIVE); KETONES,URINE NEGATIVE (NEGATIVE); LEUKOCYTE ESTERASE ,URINE NEGATIVE (NEGATIVE); NITRITE,URINE NEGATIVE (NEGATIVE); PH,URINE 5.5 (5-9); PROTEIN,URINE NEGATIVE (NEGATIVE)
--- NOTE | 2019-07-25 14:05 | Diagnostic Imaging Report ---
INDICATION: Preop knee arthroplasty, degenerative joint disease. EXAMINATION: PA and lateral chest. FINDINGS: The heart size and pulmonary vascularity are normal. The lungs are clear. There are no effusions or pneumothoraces. IMPRESSION: Negative chest. Dictated by: Dictated on workstation # [id number]
[2019-07-25 14:11] LABS: BACTERIA,URINE NEGATIVE /HPF; WBC,URINE RARE /HPF
[2019-07-25 14:17] LABS: POTASSIUM 3.8 MMOL/L (3.6-5.0)
[2019-07-25 14:18] LABS: CALCIUM 9.4 MG/DL (8.5-10.1)
[2019-07-25 14:19] LABS: TOTAL PROTEIN 7.5 GM/DL (6.4-8.2)
[2019-07-25 14:21] LABS: BILIRUBIN,TOTAL 0.5 MG/DL (0.1-1.0)
[2019-07-25 14:23] LABS: CREATININE SERUM 0.96 MG/DL (0.60-1.30)
[2019-07-25] MEDS ORDERED: CYCL1DRO OU (14:33)
[2019-07-25] MEDS ORDERED: ENOX80DI12 SQ (14:33)
[2019-07-25] MEDS ORDERED: VNL75T PO (14:33)
[2019-07-25] MEDS ORDERED: LORA-405 PO (14:33)
[2019-07-25 14:36] LABS: ERYTHROCYTE SEDIMENTATION RATE 18 MM/HR (0-30)
[2019-07-25] MEDS ORDERED: WARF4TAB70 PO (15:46)
[2019-07-25] MEDS ORDERED: VENL75TA2 PO (15:48)
== END 2019-07-28 14:30 | disposition home or self-care (01) ==
LOC: PREOP 13:15
PROVIDERS: ATTEND Orthopaedic Surgery
DX: Z01.812 Encounter for preprocedural laboratory examination (principal); Z01.811 Encounter for preprocedural respiratory examination; Z01.810 Encounter for preprocedural cardiovascular examination; Z11.59 Encounter for screening for other viral diseases; M17.12 Unilateral primary osteoarthritis, left knee
CPT/HCPCS: 36415; 71046 ×2; 80053 ×2; 81000 ×2; 85025 ×2; 85652 ×2; 86850 ×2; 86900 ×2; 86901 ×2; 87081 ×2; 87635; 93005 ×2; U0002

== ENCOUNTER 2019-08-02 06:01 | Inpatient (IN) | payer MEDICARE, OTHER ==
--- NOTE | 2019-07-25 15:24 | HISTORY AND PHYSICAL ---
DATE OF SERVICE: This will be for inpatient admission on 08/02/2019 for left total knee arthroplasty. The patient will require regular inpatient admission for associated comorbidities, need for physical therapy and pain management. HISTORY OF PRESENT ILLNESS: The patient is a 68-year-old female with progressive worsening left knee pain. In the past, she underwent an ACL reconstruction and has had subsequent arthroscopies as well as injections. Radiographs revealed complete loss of medial patellofemoral joint spaces. She reports progressive pain primarily medially and anteriorly. In addition, the patient had a metal allergy and has had documentation from a cracker off. She also has a clotting disorder, requiring Coumadin use. Due to progressive symptoms and failure to improve with conservative measures, the patient elected to proceed with left total knee arthroplasty. REVIEW OF SYSTEMS: No chest pain, no shortness of breath, no dysuria. PAST MEDICAL HISTORY: Hypertension, hyperlipidemia, diabetes, hypothyroidism, reflux, osteoarthritis, degenerative disk disease, migraines, depression, anxiety, head trauma, antiphospholipid syndrome, shingles. PAST SURGICAL HISTORY: Arterial clot removal, bilateral knee arthroscopy, cholecystectomy, bladder sling, TMJ, appendectomy, hysterectomy, and right ankle. FAMILY HISTORY: Significant for hypertension, coronary artery disease, diabetes and cerebrovascular accident. PRIMARY CARE PROVIDER: Dr. Coleman. MEDICATIONS: Diclofenac, omeprazole, levothyroxine, Maxalt, lisinopril, Carmel, Valtrex, Effexor, atorvastatin, Ativan and warfarin. ALLERGIES: PERCOCET, SULFA, CLONAZEPAM, STATINS, METAL, CHOCOLATE. SOCIAL HISTORY: The patient is a former smoker and drinks alcohol socially. PHYSICAL EXAMINATION: GENERAL: The patient is well developed, well-nourished, in no acute distress. HEENT: Normocephalic, atraumatic. Pupils are equal, round and reactive to light. Oropharynx is clear. NECK: Supple, no lymphadenopathy. LUNGS: Clear to auscultation bilaterally. HEART: Regular rate and rhythm. ABDOMEN: Soft, nontender, nondistended. EXTREMITIES: The left knee demonstrates a slight effusion. She is tender along the medial joint line. She has patellofemoral crepitus and pain with patellar loading. Range of motion 0/0/130. Negative Richelle, negative anterior and posterior drawer. No varus valgus laxity, negative pivot shift. Her left knee demonstrates a well healed incision anteriorly and laterally. IMPRESSION: Severe left knee osteoarthritis, unresponsive to conservative measures. PLAN: Left total knee arthroplasty. The risks, benefits, options, ramifications and recovery were discussed at length with the patient. She understands and wishes to proceed. Job ID: [id number] DocumentID: [id number] Dictated Date: 07/22/2019 15:56:07 Mobile Pet Groomer Date: 07/22/2019 16:42:42 Dictated By: BEN GARCIA MD
[~2019-08-02] VITALS: Ht 154.9 cm; Wt 82.6 kg
[2019-08-02] VITALS (12 sets, daily range): BP systolic 106–150; BP diastolic 53–80
[~2019-08-02 06:01] MED LIST changes: +ENOX80DI12 SQ; +LORA-405 PO; +VENL75TA2 PO; +VNL75T PO; +WARF4TAB70 PO
[2019-08-02] MEDS ORDERED: ONDANSETRON 4 MG/2 ML (SDV) Z0FRAN IV ONE (06:30)
[2019-08-02] MEDS ORDERED: FAMOTIDINE 20MG/2ML IV (PEPCID) IV ONE (06:30)
[2019-08-02] MEDS: LACTATED RINGERS 1,000 ML IV PRN ×2 (06:41→08:16)
[2019-08-02] MEDS ORDERED: CEFUROXIME INJECTION 1,500 MG in WATER (STERILE) FOR INJECTION 15 ML IV ONE (06:45)
[2019-08-02] MEDS ORDERED: LIDOCAINE PF 2% 5 ML (XYLOCAINE) VIAL ONE (06:49)
[2019-08-02] MEDS ORDERED: MIDAZOLAM 2 MG/2 ML (VERSED) VIAL ONE (06:49)
[2019-08-02] MEDS ORDERED: fentaNYL INJECTION 100 MCG/2 ML AMP ONE (06:49)
[2019-08-02] MEDS ORDERED: proPOfol 200 MG/20 ML (DIPRIVAN) VIAL IV ONE (06:49)
[2019-08-02] MEDS ORDERED: SEVOFLURANE (ULTANE) 15 ML INHAL SOLN ONE ×4 (06:50→08:59)
[2019-08-02 06:55] LABS: PROTHROMBIN TIME PATIENT 13.2 SEC (12.2-14.7)
[2019-08-02] MEDS ORDERED: morphine PCA 100 MG/100 ML BAG IV PRN (07:15)
[2019-08-02] MEDS ORDERED: ONDANSETRON 4 MG/2 ML (SDV) Z0FRAN IVP PRN ×2 (07:15→09:30)
--- NOTE | 2019-08-02 07:21 | Progress Note-Post Operative ---
Post-Operative Progess Note Surgeon (s)/Physiatrist (s) Surgeon BEN GARCIA MD Physiatrist: Arsenio Mendes Pre-Operative Diagnosis left knee primary osteoarthritis Post-Operative Diagnosis left knee primary osteoarthritis Procedure & Operative Findings Date of Procedure 08/02/19 Procedure Performed/Findings left total knee arthroplasty Anesthesia Type GETA Estimated Blood Loss Estimated blood loss (mL): minimal Specimens/Packing Specimens Removed none Packing: none BEN GARCIA MD Aug 02, 2019 07:21
--- NOTE | 2019-08-02 07:21 | Progress Note-Pre Operative ---
Pre-Operative Progress Note H&P Reviewed The H&P was reviewed, patient examined and no changes noted. Date Seen by Provider: Aug 02, 2019 Time Seen by Provider: 07:11 Date H&P Reviewed: Aug 02, 2019 Time H&P Reviewed: 07:00 Pre-Operative Diagnosis: left knee primary osteoarthritis BEN GARCIA MD Aug 02, 2019 07:20
--- NOTE | 2019-08-02 07:24 | D/C HH Face to Face Order ---
D/C Face to Face Orders Reconcile Patient Problems Problems Reviewed?: Yes Instructions for Patient Via Bharti O-CODES, Patient Instructions/FollowUp: three weeks Physician to follow Patient: three weeks Discharge Diet for Home: Regular Diet Patient Data-Allergies,Ht & Wt Patient Allergies: Coded Allergies: Sulfa (Sulfonamide Antibiotics) (Verified Allergy, Intermediate, GI UPSET, 08/02/19) acetaminophen (Verified Allergy, Intermediate, "FEELS BAD", 08/02/19) chocolate flavor (Verified Allergy, Intermediate, MIGRAINES, 08/02/19) oxycodone (Verified Allergy, Intermediate, "FEELS BAD", 08/02/19) Remzskq-Trj-Hdk Reductase Inhibitor (Verified Allergy, Unknown, leg c ramps, 08/02/19) chromium (Verified Allergy, Unknown, Hives, 08/02/19) clonazepam (Verified Allergy, Unknown, depression, 08/02/19) gold Au 198 (Verified Allergy, Unknown, Hives, 08/02/19) sodium thiosulfate (Verified Allergy, Unknown, Hives, 08/02/19) sulfacetamide (Verified Allergy, Unknown, Nausea, 08/02/19) titanium (Verified Allergy, Unknown, Hives, 08/02/19) Uncoded Allergies: METAL (Allergy, Intermediate, HIVES, 09/21/16) Height (Feet): 5 Height (Inches): 1.00 Weight (Pounds): 170 Weight (Ounces): 2.0 Home Health Need/Face to Face Date of Face to Face: Aug 02, 2019 Clinical Findings: Instability, Muscle weakness, Pain with ambulation, Unsteady gait I have seen Pt qjum-hq-nlld: Yes Discharged To: Home Diagnosis/Conditions: left total knee arthroplasty Patient is Homebound due to: Soraida fall risk due to instabilty, Muscle weakness, Pain w/ambulation Homebound Status Due to the above stated illness, injury or surgical procedure (medical condition or diagnosis) and associated clinical findings, the patient is homebound because of his/her inability to leave home except with aid of a supportive device and/or person AND leaving the home requires a considerable and taxing effort or is medically contraindicated. Pt req the following assistanc: Walker Home Health Nursing Orders Home Health Services Order: Physical Therapy-Evaluate & Treat DC left knee mikel and apply steri strips 08/16/19 Home Health Infusion Therapy Line Start Date: Aug 02, 2019 Therapy Orders Therapy Orders: Physical Therapy, PT to assess for OT Therapy Specific Orders: Eval assistive deivces, Teach enviro modifications/safety, Gait training, Increase strength/endurance, Provider maintenance therapy, Restore ROM Certify Stmt I certify that this patient is under my care and that I, a nurse practitioner or a physician; a pediatric physician assistant working with me, had a face to face encounter that - meets the physician face to face encounter requirements with this patient as dated. BEN GARCIA MD Aug 02, 2019 07:24
[2019-08-02] MEDS ORDERED: INTRA-ARTICULAR IU ONE ×5 (07:30)
[2019-08-02] MEDS ORDERED: HYDROmorphone 2 MG/ML VIAL (DILAUDID) ONE (07:50)
[2019-08-02] MEDS ORDERED: ESMOLOL 100 MG/10 ML (BREVIBLOC) VIAL ONE (07:55)
[2019-08-02] MEDS ORDERED: HYDROmorphone 2 MG/ML VIAL (DILAUDID) IV ONE (09:30)
--- NOTE | 2019-08-02 10:20 | NUR ---
RECEIVED FROM SURGERY POST LEFT KNEE REPLACEMENT, AWAKE, IV SITE WITHOUT REDNESS OR SWELLING IN RIGHT WRIST, CHANG HOSE ON, POLAR ICE PACK ON, DRESSING DRY AND INTACT TO LEFT KNEE, REPORT FROM AUNDREA WHALEN.
--- NOTE | 2019-08-02 10:29 | Progress Note ---
Standard Progress Note Progress Notes/Assess & Plan Date Seen by a Provider: Aug 02, 2019 Time Seen by a Provider: 10:27 Progress/Assessment & Plan post op check No complaints denies paresthesia Radiographs--HW well positioned without fracture LLE--2 plus DP pulse with brisk cap refill. sensation intact to light touch throughout. Intact DF and PF of toes and ankle s/p LTKA mobilize as able BEN GARCIA MD Aug 02, 2019 10:29
--- NOTE | 2019-08-02 10:51 | Diagnostic Imaging Report ---
INDICATION: Postop left knee. Time of exam: 9:51 AM Two views of the left knee demonstrate postoperative changes total knee arthroplasty. Prosthetic elements are in good position. No fracture or loosening is seen. Overlying skin mikel are noted. IMPRESSION: Satisfactory postop appearance to the left knee. Dictated by: Dictated on workstation # [id number]
[2019-08-02] MEDS: NS IV 1000 ML 1,000 ML IV SCH ×3 (11:34→23:05)
[2019-08-02] MEDS: SENNA W/DOCUSATE (SENOKOT S) TABLET PO SCH ×2 (11:34→20:27)
--- NOTE | 2019-08-02 11:51 | NUR ---
MORPHINE RANCH HAND LIVESTOCK STARTED ORDERED, 1MG EVERY 10 MINUTES WITH LOCK OUT 20MG IN FOUR HOURS, 3MG BOLUS GIVEN, PATIENT INSTRUCTED ON USE OF RANCH HAND LIVESTOCK, VERBALIZED UNDERSTANDING, RATES PAIN A 3 ON PAIN SCALE
--- NOTE | 2019-08-02 11:54 | OPERATIVE REPORT ---
DATE OF SERVICE: 08/02/2019 PREOPERATIVE DIAGNOSIS: Left knee primary osteoarthritis. POSTOPERATIVE DIAGNOSIS: Left knee primary osteoarthritis. PROCEDURE PERFORMED: Left total knee arthroplasty. SURGEON: Jamie Garcia MD. TIRE MAKER: Arsenio Mast, who assisted throughout the procedure and closed the incision. ANESTHESIA: General endotracheal by ____, LIVE AMMUNITION INSPECTOR. TOURNIQUET TIME: Approximately 80 minutes at 300 mmHg. ESTIMATED BLOOD LOSS: Minimal. DRAINS: None. COMPLICATIONS: None. POSTOPERATIVE PLAN: Routine total knee arthroplasty protocol. The patient was transferred to the recovery room awake and in stable condition. MATERIALS: LINK cemented size 2 femur, cemented size 2 tibia with a 10 mm insert and a cemented size 29 patellar button. STATEMENT OF MEDICAL NECESSITY: The patient is a 68-year-old female, who had previously undergone a left ACL reconstruction in the remote past. She had a progressively worsening left knee pain. She has undergone treatment with injections, arthroscopy and anti-inflammatories without relief. Due to functional impairment and failure to improve with conservative measures, the patient elected to proceed with surgical intervention. Radiographs revealed a severe tricompartmental osteoarthritis. DESCRIPTION OF PROCEDURE: After the risks and benefits of the procedure were discussed and questions were answered, an informed consent was signed and placed on chart, the operative site was confirmed in the preoperative holding area initialed by the surgeon. The patient was then transferred to the operating room. After adequate levels of general endotracheal anesthetic were obtained, a timeout was called, confirming the operative site. The left lower extremity was prepped and draped in the usual sterile fashion with the leg elevated and the knee flexed. Tourniquet was inflated to 300 mmHg. A standard anterior approach was utilized. Hemostasis was obtained with cautery. A medial parapatellar arthrotomy was performed leaving 1 cm cuff on the patella for later reattachment. A portion of the fat pad was resected. A subperiosteal release was performed on the proximal medial tibia being careful stay on the bony surface. The ACL was resected. The intramedullary guide was passed into the femur and the distal cutting block was placed and distal cut was made. Femur sized to a size 2A and the cuts were made from posterior to anterior. Subperiosteal release was then carefully performed on the posterior distal femur, being careful to stay on the bony surface. The tibial cutting block was then placed and drop alexi transected the intermalleolar axis and the cut was made. The previously placed tibial screw from her ACL was evident and this was removed without difficulty proximally. The tibial baseplate trial was placed and had excellent coverage. This was then pinned into position and prepared with the drills and keel punch. The femoral trial was placed. Lug holes were drilled and a 10 mm insert was placed. The patella was then prepared by resecting 10 mm off the undersurface. The peg guide was placed and peg holes were drilled. The trials were inserted patella. Full extension was easily obtained. The patella tracked well. There was no varus valgus laxity in flexion or extension. There was 1+ anterior drawer and negative posterior drawer. The trials were removed. The joint was irrigated with a pulse lavage. The periarticular block was placed in the posterior capsule, medial and lateral retinaculum, extensor mechanism and subcutaneous tissues. The bone ends were then irrigated and dried and the tibial baseplate was cemented into position. Excessive cement was removed. The polyethylene insert was then placed after irrigating superior surface and drying it. The femoral prosthesis was placed after irrigating the distal femur and drying it. The excessive cement was removed. The undersurface of the patella was irrigated and dried and the patellar button was then cemented into position, removing excessive cement. Once the cement had cured, the knee was taken through range of motion. Full extension was easily obtained under 20 degrees of flexion with gravity was easily obtained. The patella tracked well. There was no varus/valgus laxity in flexion or extension. There was 1+ anterior drawer at 90 degrees. Otherwise, no anterior/posterior laxity. The joint was further irrigated with pulse lavage. The arthrotomy was closed with a #2 Vicryl in a txtfip-hw-jmfvb interrupted fashion. Knee was flexed. The patella tracked well with no undue tension at the repair site. The subcutaneous tissues were irrigated using a total of 6 liters throughout the procedure. A 0 Vicryl was used for deep subcutaneous tissue, 2-0 Vicryl for the superficial subcutaneous tissue and mikel were used on the skin. A soft dressing was applied. The tourniquet was deflated and the patient was transferred to the recovery room awake and in stable condition. Job ID: [id number] DocumentID: [id number] Dictated Date: 08/02/2019 09:17:13 Front End Assistant Date: 08/02/2019 11:53:15 Dictated By: JAMIE GARCIA MD
--- NOTE | 2019-08-02 13:09 | Anesthesia-General Post-Op ---
General Patient Condition Mental Status/LOC: Same as Preop Cardiovascular: Satisfactory Nausea/Vomiting: Absent Respiratory: Satisfactory Pain: Controlled Complications: Absent Post Op Complications Complications None Follow Up Care/Instructions Patient Instructions None needed. Anesthesia/Patient Condition Patient Condition Patient is doing well, no complaints, stable vital signs, no apparent adverse anesthesia problems. No complications reported per nursing. D/C home per [facility] [place] Criteria: Yes SAYRA HOLLIS CRNA Aug 02, 2019 13:09
--- NOTE | 2019-08-02 15:02 | Physical Therapy Evaluation ---
PT Evaluation-General Medical Diagnosis Admission Date Aug 02, 2019 at 06:01 Medical Diagnosis: left TKA Onset Date: Aug 02, 2019 Therapy Diagnosis Therapy Diagnosis: impaired mobility, strength, endurance, ROM Height/Weight Height (Feet): 5 Height (Inches): 1.00 Weight (Pounds): 170 Weight (Ounces): 2.0 Precautions Precautions/Isolations: Fall Prevention, Standard Precautions Weight Bear Status Left Lower Extremity: Left Weight Bearing/Tolerated Referral Physician: Pro Reason for Referral: Evaluation/Treatment Medical History Pertinent Medical History: Arthritis, COPD, CVA, DM, HTN Additional Medical History PAST MEDICAL HISTORY: Hypertension, hyperlipidemia, diabetes, hypothyroidism, reflux, osteoarthritis, degenerative disk disease, migraines, depression, anxiety, head trauma, antiphospholipid syndrome, shingles. PAST SURGICAL HISTORY: Arterial clot removal, bilateral knee arthroscopy, cholecystectomy, bladder sling, TMJ, appendectomy, hysterectomy, and right ankle. Reviewed History: Yes Social History Current Living Status: Alone Entry Into Home: Stairs With Railing PT Steps Into Home: 3 Prior Prior Level of Function SCALE: Activities may be completed with or without assistive devices. 2-Haxgrzxanu-rlrkabn completes the activity by him/herself with no assistance from a helper. 5-Set-up or Clean-up Assistance-helper sets up or cleans up; patient completes activity. [place] assists only prior to or following the activity. 4-Supervision or Touching Assistance-helper provides verbal cues and/or touching/steadying and/or contact guard assistance as patient completes activity. Assistance may be provided throughout the activity or intermittently. 3-Partial/Moderate Assistance-helper does LESS THAN HALF the effort. [place] lifts, holds or supports trunk or limbs, but provides less than half the effort. 2-Substantial/Maximal Assistance-helper does MORE THAN HALF the effort. [place] lifts or holds trunk or limbs and provides more than half the effort. 0-Pzduqlkbl-ccmgou does ALL the effort. Patient does none of the effort to complete the activity. Or, the assistance of 2 or more helpers is required for the patient to complete the activity. If activity was not attempted, code reason: 7-Patient Refused. 9-Not Applicable-not attempted and the patient did not perform the activity before the current illness, exacerbation or injury. 10-Not Attempted due to Environmental Limitations-(lack of equipment, weather restraints, etc.). 88-Not Attempted due to Medical Conditions or Safety Concerns. Bed Mobility: 6 Transfers (B,C,W/C): 6 Gait: 6 Stairs: 6 Indoor Mobility (Ambulation): Independent Stairs: Independent PT Evaluation-Current Subjective Patient in bed pre tx, agrees to PT, no complaints of pain. PT tech (Lauren) assists. Pt/Family Goals to be independent at home Objective Patient Orientation: Person, Place, Situation Attachments: Oxygen, IV ROM/Strength ROM Lower Extremities left knee flexion 60 degrees, extension +7 degrees Sensory Vision: Functional Hearing: Functional Sensation Right Lower Extremit: Intact Sensation Left Lower Extremity: Impaired Sensation Lower Extremities Patient still has some numbness below left knee Transfers Roll Left to Right (QC): 6 Sit to Lying (QC): 3 Lying to Sitting/Side of Bed(Q: 3 Sit to Stand (QC): 4 Chair/Hfg-sz-Grjss Xfer(QC): 4 Min assist with left leg for supine <-> sit. No dizziness or light headedness b ut some nausea. Gait Does the Patient Walk?: Yes Mode of Locomotion: Walk Anticipated Mode of Locomotion: Walk Distance: 8' Gait Assistive Device: FWW Comments/Gait Description Patient ambulated 8' with a rolling walker with CGA. Antalgic, decreased weight bearing on left leg, very little knee flexion or extension. Balance Sitting Static: Normal Sitting Dynamic: Normal Standing Static: Fair Standing Dynamic: Fair Treatment Supine TKA protocol x10 (AP, QS, HS, SAQ, SLR). CPM donned and adjusted to patient's leg and set to 50/-2 Assessment/Needs Patient has impaired mobility, strength, endurance, ROM post left TKA. Patient in bed post tx with nurse call, phone, tray, CPM and SCD's donned, all needs met. [facility] care on. Rehab Potential: Fair PT Fdc Goals Ripsaw Grader Goals PT Ripsaw Grader Goals Time Frame: Aug 09, 2019 Roll Left & Right (QC): 6 Sit to Lying (QC): 6 Lying-Sitting on Side/Bed(QC): 6 Sit to Stand (QC): 4 Chair/Uvl-iz-Evowu Xfer(QC): 4 Walk 10 feet (QC): 4 Walk 50ft with 2 Turns (QC): 4 1 Step (curb) (QC): 4 PT Plan Problem List Problem List: Activity Tolerance, Functional Strength, Safety, Balance, Gait, Transfer, Bed Mobility, ROM Treatment/Plan Treatment Plan: Continue Plan of Care Treatment Plan: Bed Mobility, Education, Functional Activity Arnaldo, Functional Strength, Gait, Safety, Therapeutic Exercise, Transfers Treatment Duration: Aug 09, 2019 Frequency: 11 times per week Estimated Hrs Per Day: .25 hour per day Patient and/or Family Agrees t: Yes Safety Risks/Education Patient Education: Gait Training, Transfer Techniques, Correct Positioning, Safety Issues Teaching Recipient: Patient Teaching Methods: Demonstration, Discussion Response to Teaching: Reinforcement Needed Discharge Recommendations Plan Patient will perform bed mobility and transfer training, balance and endurance training, functional strengthening, stair training, gait training, and education, to improve functional mobility and independence at home. Therapy Discharge Recommendati: Home & Family, Post Acute PT Time/GCodes Time In: 1418 Time Out: 1452 Total Billed Treatment Time: 24 Total Billed Treatment 1 visit DARRYL 15' FA 9' CHARLEE FRANCISCO PT Aug 02, 2019 15:02
[2019-08-02] MEDS: CEFUROXIME INJECTION 750 MG in WATER (STERILE) FOR INJECTION 10 ML IV SCH ×2 (15:10→22:34)
--- NOTE | 2019-08-02 15:53 | NUR ---
DR BAKER CONSULTED FOR MEDICAL MANAGEMENT AND HOME MEDS
[2019-08-02] MEDS: diphenhydrAMINE 50 MG/ML INJ (BENADRYL) IVP PRN ×2 (17:48→22:34)
[2019-08-02] MEDS ORDERED: NON-FORMULARY MEDICATION 1 EA EA (Fexofenadine HCl (Allegra Allergy) 180 MG) PO PRN (18:00)
[2019-08-02] MEDS ORDERED: PATIENT MAY USE OWN MED,SINGLE MED PO SCH (18:15)
[2019-08-02] MEDS ORDERED: LORATADINE (CLARITIN) 10 MG TAB PO PRN (18:30)
[2019-08-02] MEDS ORDERED: glipiZIDE 5 MG (GLUCOTROL) TAB PO SCH (21:00)
[2019-08-02] MEDS ORDERED: NON-FORMULARY MEDICATION 1 EA EA (Cyclosporine (Restasis) 1 DROP) OU SCH (21:00)
[2019-08-02] MEDS: HYDROmorphone (DILAUDID) 4 MG TAB PO PRN (22:33)
--- NOTE | 2019-08-02 22:33 | NUR ---
PT RATES PAIN 10/10 AND REQUESTING ORAL PAIN MEDICATION. REEDUCATED PT ON THE USE OF CHILD DEVELOPMENT PROFESSOR PUMP. PT VERBALIZES UNDERSTANDING OF TEACHING. ADDITIONAL PAIN MEDIATION GIVEN PER ORDER. CPM MACHINE PLACED PER PT REQUEST. ALL NEEDS MET AT THIS TIME.
[2019-08-03 00:19] VITALS: BP 114/57
--- NOTE | 2019-08-03 00:23 | NUR ---
RT INFORMED THIS RN THAT PT WAS SITTING UP AND DIDN'T WANT TO WEAR CPAP MACHINE. RT STATES THEY APPLIED OXYGEN 2L PER NASAL CANNULA AT THIS TIME.
[2019-08-03 03:46] VITALS: BP 130/60
[2019-08-03 06:29] LABS: HEMOGLOBIN 9.1 G/DL (11.5-16.0)
[2019-08-03] MEDS: glipiZIDE 5 MG (GLUCOTROL) TAB PO SCH ×2 (06:30→17:16)
[2019-08-03] MEDS: MULTIVIT W/MINERALS TAB (THERAGRAN M) PO SCH (06:30)
[2019-08-03] MEDS: LEVOTHYROXINE 150 MCG (LEVOTHROID) TAB PO SCH (06:31)
[2019-08-03] MEDS: VENlafaxine XR 75 MG (EFFEXOR XR) CAP PO SCH (06:31)
--- NOTE | 2019-08-03 07:58 | Progress Note ---
Standard Progress Note Progress Notes/Assess & Plan Date Seen by a Provider: Aug 03, 2019 Time Seen by a Provider: 07:57 Progress/Assessment & Plan post op check No complaints denies paresthesia Radiographs--HW well positioned without fracture LLE--2 plus DP pulse with brisk cap refill. sensation intact to light touch throughout. Intact DF and PF of toes and ankle s/p LTKA mobilize as able Final Diagnosis no complaints Vital Signs Date Time Temp Pulse Resp B/P (MAP) Pulse Ox O2 Delivery O2 Flow Rate FiO2 08/03/19 07:05 98 Room Air 08/03/19 07:00 20 08/03/19 03:46 37.2 99 20 130/60 (83) 100 Nasal Cannula 1.00 08/03/19 00:19 36.7 86 16 114/57 (76) 93 Nasal Cannula 1.00 08/03/19 00:15 87 Room Air 08/02/19 21:00 20 08/02/19 21:00 Nasal Cannula 1.00 08/02/19 19:43 97 Room Air 08/02/19 19:36 36.2 79 18 122/58 (79) 95 Nasal Cannula 1.00 08/02/19 16:07 36.1 74 18 106/53 (70) 96 Nasal Cannula 1.00 08/02/19 12:00 19 08/02/19 11:18 97 Room Air 08/02/19 11:02 36.1 76 19 150/67 (94) 91 Room Air 08/02/19 11:00 97 Nasal Cannula 1.00 08/02/19 10:57 76 19 150/67 91 08/02/19 10:15 Room Air 08/02/19 10:15 16 129/70 (89) Room Air 08/02/19 10:10 16 135/60 (85) Room Air 08/02/19 10:09 Room Air 08/02/19 10:04 OxyMask 8 08/02/19 10:00 16 145/64 (91) OxyMask 8 08/02/19 09:58 OxyMask 8 08/02/19 09:50 16 150/58 (88) OxyMask 8 08/02/19 09:40 36.5 14 116/54 (74) 95 OxyMask 8 08/02/19 09:30 36.5 14 114/55 (74) 95 OxyMask 8 08/02/19 09:20 36.5 14 146/68 (94) 95 OxyMask 8 08/02/19 09:20 OxyMask 8 I & O 08/03/19 07:00 Intake Total 2555 ml Balance 2555 ml Laboratory Tests Test 08/02/19 20:35 08/03/19 05:03 08/03/19 05:50 Range/Units Glucometer 147 H 115 H 70-110 MG/DL Hemoglobin 9.1 L 11.5-16.0 G/DL Hematocrit 29 L 35-52 % LLE--dressing in place. No calf tenderness. Neg Brian's s/p ADALBERTO PT/OT BEN EDOUARD MD Aug 03, 2019 07:58
[2019-08-03 08:00] VITALS: BP 147/67
--- NOTE | 2019-08-03 08:42 | Consultation ---
History of Present Illness History of Present Illness Patient Consulted On(concha/time) 08/03/19 08:42 Date Seen by Provider: Aug 03, 2019 Time Seen by Provider: 08:20 Reason for Visit: LEFT KNEE REPLACEMENT History of Present Illness PT IS A 68 Y/O FEMALE WHO IS WELL KNOWN TO ME FROM CLINIC. SHE PRESENTED TO THE HOSPITAL FOR A PLANNED LEFT KNEE REPLACEMENT. SHE STATES THAT SHE HAD A GOOD DAY YESTERDAY AND SHE HAS A TREMENDOUS AMOUNT OF PAIN THIS MORNING. SHE DOES REPORT GETTING UP THE RESTROOM BY HERSELF LAST NIGHT. Allergies and Home Medications Allergies Coded Allergies: Sulfa (Sulfonamide Antibiotics) (Verified Allergy, Intermediate, GI UPSET, 08/02/19) acetaminophen (Verified Allergy, Intermediate, "FEELS BAD", 08/02/19) chocolate flavor (Verified Allergy, Intermediate, MIGRAINES, 08/02/19) oxycodone (Verified Allergy, Intermediate, "FEELS BAD", 08/02/19) Agztaqy-Wbc-Has Reductase Inhibitor (Verified Allergy, Unknown, leg cramps, 08/02/19) chromium (Verified Allergy, Unknown, Hives, 08/02/19) clonazepam (Verified Allergy, Unknown, depression, 08/02/19) gold Au 198 (Verified Allergy, Unknown, Hives, 08/02/19) sodium thiosulfate (Verified Allergy, Unknown, Hives, 08/02/19) sulfacetamide (Verified Allergy, Unknown, Nausea, 08/02/19) titanium (Verified Allergy, Unknown, Hives, 08/02/19) Uncoded Allergies: METAL (Allergy, Intermediate, HIVES, 09/21/16) Home Medications Cyclosporine 1 Each Droperette, 1 DROP OU BID, (Reported) Enoxaparin Sodium 80 Mg/0.8 Ml Syringe, 80 MG SQ BID, (Reported) start 07/27/19 if INR is 2 or below Fexofenadine HCl 180 Mg Tablet, 180 MG PO DAILY PRN for ALLERGIES, (Reported) Glipizide 5 Mg Tablet, 5 MG PO BID, (Reported) Levothyroxine Sodium 150 Mcg Tablet, 150 MCG PO DAILY, (Reported) Lisinopril 40 Mg Tablet, 40 MG PO DAILY, (Reported) Lorazepam 1 Mg Tablet, 1-2 MG PO DAILY PRN for ANXIETY, (Reported) take 1-2 of 1mg tab Metoprolol Succinate 25 Mg Tab.er.24h, 25 MG PO HS, (Reported) Omeprazole 20 Mg Capsule.dr, 20 MG PO DAILY, (Reported) Rizatriptan Benzoate 10 Mg Tablet, 10 MG PO UD PRN for migraines, (Reported) Timolol Maleate 5 Ml Drop.daily, 1 DROP OU DAILY, (Reported) Valacyclovir HCl 500 Mg Tablet, 500 MG PO DAILY PRN for OUTBREAK, (Reported) Venlafaxine HCl 75 Mg Tab.er.24, 75 MG PO DAILY, (Reported) Warfarin Sodium 5 Mg Tablet, 5 MG PO SuTuWeFrSa, (Reported) hold when start Lovenox, then resume after surgery Warfarin Sodium 4 Mg Tablet, 4 MG PO MoTh, (Reported) hold once you start Lovenox then resume after surgery Patient Home Medication List Home Medication List Reviewed: Yes Past Btuixhn-Fyoznl-Aisfci Hx Past Med/Social Hx: Reviewed Nursing Past Med/Soc Hx, Reviewed and Corrections made Patient Social History Alcohol Use: Denies Use Recreational Drug Use: No Smoking Status: Former Smoker Former Smoker, Quit: Jan 22, 1984 Recent Foreign Travel: No Contact w/Someone Who Travel: No Recent Infectious Disease Expo: No Recent Hopitalizations: No Immunizations Up To Date Date of Pneumonia Vaccine: Feb 27, 2019 Date of Influenza Vaccine: Dec 22, 2015 Seasonal Allergies Seasonal Allergies: Yes (MILD) Past Medical History Surgeries: Yes (L KNEE SCOPE x4, BLOOD CLOTS REMOVED ABD & KNEE, BACK Sx,R ankle fx, ) Appendectomy, Gallbladder, Hysterectomy Respiratory: Yes (CPAP) Sleep Apnea Currently Using CPAP: Yes Cardiac: Yes (ATYPICAL ARTERIAL BLOOD CLOTS) Coronary Artery Disease, Deep Vein Thrombosis, High Cholesterol, Hypertension Neurological: Yes Headaches /Migraines Reproductive Disorders: No NURSE SUPERVISOR History: Hysterectomy Sexually Transmitted Disease: No HIV/AIDS: No Genitourinary: Yes (RENAL ARTERY STENOSIS, ADRENAL INFARCTION) Gastrointestinal: Yes Gastroesophageal Reflux Musculoskeletal: Yes (FIBRO MUSCULAR DYSPHASIA) Degenerate Disk Disease, Arthritis, Fibromyalgia, Chronic Back Pain Endocrine: Yes (APS- ANTIPHOSPHOLIPID SYNDROM) Hypothyroidsim, Diabetes, Non-Insulin dep HEENT: Yes (CATARACT REMOVED) Loss of Vision: Bilateral Hearing Impairment: Denies Cancer: No Psychosocial: Yes Anxiety, Depression Integumentary: Yes (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) Eczema Blood Disorders: No Adverse Reaction/Blood Tranf: No (N/A) Family Medical History Reviewed Nursing Family Hx Alzheimer's disease 19 MOTHER Arthritis 19 MOTHER Cardiovascular disease 19 FATHER Congenital heart disease Diabetes mellitus 19 MOTHER Hypertension 19 MOTHER Myocardial infarction 19 FATHER Review of Systems Review of Systems General: No Chills, No Fatigue HEENT: No Visual Changes, No Dysphasia Pulmonary: No Dyspnea, No Cough Cardiovascular: No: Chest Pain, Palpitations Gastrointestinal: No: Nausea, Abdominal Pain, Constipation Genitourinary: No Dysuria, No Frequency Musculoskeletal: leg pain Neurological: Weakness; No: Confusion Physical Exam Vital Signs Vital Signs - First Documented Capillary Refill : Less Than 3 SecondsLess Than 3 Seconds Height, Weight, BMI Height: 5'1.00" Weight: 170lbs. 2.0oz. 77.819350rb; 34.42 BMI Method: General Appearance: No Apparent Distress, WD/WN Eyes: Bilateral Eye Normal Inspection, Bilateral Eye PERRL, Bilateral Eye EOMI HEENT: PERRL/EOMI, Pharynx Normal Neck: Full Range of Motion, Normal Inspection, Non Tender, Supple Respiratory: Chest Non Tender, Lungs Clear, Normal Breath Sounds, No Accessory Muscle Use, No Respiratory Distress Cardiovascular: Regular Rate, Rhythm, Normal Peripheral Pulses Gastrointestinal: Normal Bowel Sounds, Non Tender, Soft Rectal: Deferred Back: Normal Inspection Extremity: Pedal Edema (TRACE LEFT LEG), Other (BLOODY SURGICAL DRESSING IN PLACE, CHANG HOSE BILATERAL LOWER LEGS) Neurologic/Psychiatric: Alert, Oriented x3, No Motor/Sensory Deficits, Normal Mood/Affect, correctional cook II-XII Norm as Tested Lymphatic: No Adenopathy Assessment/Plan Assessment/Plan Admission Dx OSTEOARTHRITIS LEFT KNEE REPLACEMENT HYPERTENSION CHRONIC ANTICOAGULATION 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 GARCIA - WILL NEED THERAPY AT HOME WITH HOME HEALTH HYPERTENSION - RESUMED HOME REGIMEN CHRONIC ANTICOAGULATION FOR CLOTTING DISORDER DUE TO ANTIPHOSPHOLIPID SYNDROME - PT ON LOVENOX - RESTARTED COUMADIN AND WILL CONTINUE WITH LOVENOX UNTIL INR GETS UP TO GREATER THAN 2 DIABETES MELLITUS - RESUME GLIPIZIDE HYPERTENSION - RESUMED HOME REGIMEN PT WILL NEED INR ON WEDNESDAY MORNING AND THIS WEEKEND WITH HOME HEALTH. Admission Status: Inpatient Order (span 2 midnights) Reason for Inpatient Admission: INPATIENT ADMISSION FOR KNEE REPLACEMENT Assessment and Plan OSTEOARTHRITIS LEFT KNEE REPLACEMENT HYPERTENSION CHRONIC ANTICOAGULATION FOR CLOTTING DISORDER DUE TO ANTIPHOSPHOLIPID SYNDROME DIABETES MELLITUS HYPERTENSION Clinical Quality Measures DVT/VTE Risk/Contraindication: Risk Factor Score Per Nursin RFS Level Per Nursing on Admit: 4+=Very High JEVON BAKER MD Aug 03, 2019 08:42
[2019-08-03] MEDS: ASPIRIN E.C. 81 MG (ECOTRIN) TAB PO SCH (08:51)
[2019-08-03] MEDS: SENNA W/DOCUSATE (SENOKOT S) TABLET PO SCH ×2 (08:51→20:17)
[2019-08-03] MEDS: PANTOPRAZOLE 20 MG TABLET (PROTONIX) PO SCH (08:51)
[2019-08-03] MEDS: lisINopril 40 MG (PRINIVIL) TABLET PO SCH (08:51)
[2019-08-03] MEDS: TIMOLOL MALEATE 0.5% 5 ML (TIMOPTIC) BTL OU SCH (08:52)
[2019-08-03] MEDS: ENOXAPARIN 30 MG/0.3 ML (LOVENOX) SYR SC SCH ×2 (08:52→20:17)
[2019-08-03] MEDS ORDERED: NON-FORMULARY MEDICATION 1 EA EA (Timolol Maleate 1 DROP) OU SCH (09:00)
[2019-08-03] MEDS ORDERED: OMEPRAZOLE 20 MG (PriLOSEC) CAP NON-FORMULARY PO SCH (09:00)
[2019-08-03] MEDS ORDERED: NON-FORMULARY MEDICATION 1 EA EA (Venlafaxine HCl (Venlafaxine HCl ER) 75 MG) PO SCH (09:00)
--- NOTE | 2019-08-03 09:06 | NUR ---
IRF Evaluation Order received to evaluate patient for the ARU. Chart review complete and findings discussed with Dr. Montez - patient accepted. CM/SS notified. Met with patient to discuss details related to rehabilitation program. Patient is agreeable to admission and required therapy regimen. Anticipate admission, 08/04/19. Thank you for this referral.
[2019-08-03] MEDS: HYDROmorphone (DILAUDID) 4 MG TAB PO PRN ×2 (09:20→14:33)
--- NOTE | 2019-08-03 10:03 | Physical Therapy Daily Note ---
PT Daily Note-Current Subjective Patient agrees to PT. Pain medication issued per RN. Pain Numeric Pain Scale: 6 Location: Left Location Body Site: Knee Pain Description: Acute Mental Status Patient Orientation: Normal For Age Attachments: IV Transfers SCALE: Activities may be completed with or without assistive devices. 5-Xakngtqsno-nvjcmzf completes the activity by him/herself with no assistance from a helper. 5-Set-up or Clean-up Assistance-helper sets up or cleans up; patient completes activity. [place] assists only prior to or following the activity. 4-Supervision or Touching Assistance-helper provides verbal cues and/or touching/steadying and/or contact guard assistance as patient completes activity. Assistance may be provided throughout the activity or intermittently. 3-Partial/Moderate Assistance-helper does LESS THAN HALF the effort. [place] lifts, holds or supports trunk or limbs, but provides less than half the effort. 2-Substantial/Maximal Assistance-helper does MORE THAN HALF the effort. [place] lifts or holds trunk or limbs and provides more than half the effort. 7-Uhhatfjvy-dwalpc does ALL the effort. Patient does none of the effort to complete the activity. Or, the assistance of 2 or more helpers is required for the patient to complete the activity. If activity was not attempted, code reason: 7-Patient Refused. 9-Not Applicable-not attempted and the patient did not perform the activity before the current illness, exacerbation or injury. 10-Not Attempted due to Environmental Limitations-(lack of equipment, weather restraints, etc.). 88-Not Attempted due to Medical Conditions or Safety Concerns. Roll Left & Right (QC): 6 Lying to Sitting/Side of Bed(Q: 6 Sit to Stand (QC): 6 Chair/Dcg-te-Iweoz Xfer(QC): 6 Toilet Transfer (QC): 5 Weight Bearing Left Lower Extremity: Left Weight Bearing/Tolerated Gait Training Does the Patient Walk?: Yes Distance: 300' Walk 10 feet (QC): 5 Walk 50 ft with 2 Turns(QC): 5 Walk 150 ft (QC): 5 Gait Assistive Device: FWW steady, reciprocal pattern with PT assist for IV pole Exercises Supine Ex: Ankle pumps, Quad Set, Heel Slides, Straight leg raise Supine Reps: 15 Seated Therapy Exercises: Long arc quads Seated Reps: 15 Assessment Patient tolerated treatment well. Patient is highly motivated with progress. PT Mechanic Welder Goals Mechanic Welder Goals PT Mechanic Welder Goals Time Frame: Aug 09, 2019 Roll Left & Right (QC): 6 Sit to Lying (QC): 6 Lying-Sitting on Side/Bed(QC): 6 Sit to Stand (QC): 4 Chair/Fva-qa-Giguc Xfer(QC): 4 Walk 10 feet (QC): 4 Walk 50ft with 2 Turns (QC): 4 1 Step (curb) (QC): 4 PT Plan Treatment/Plan Treatment Plan: Continue Plan of Care Treatment Plan: Bed Mobility, Education, Functional Activity Arnaldo, Functional Strength, Gait, Safety, Therapeutic Exercise, Transfers Treatment Duration: Aug 09, 2019 Frequency: 11 times per week Estimated Hrs Per Day: .25 hour per day Patient and/or Family Agrees t: Yes Time/GCodes Time In: 915 Time Out: 940 Total Billed Treatment Time: 25 Total Billed Treatment 1 visit EX 13 min GT 12 min ANDREZ CHAMBERS PT Aug 03, 2019 10:02
--- NOTE | 2019-08-03 10:30 | Occupational Therapy Eval ---
OT Evaluation-General/PLF Medical Diagnosis Admission Date Aug 02, 2019 at 06:01 Medical Diagnosis: left TKA Onset Date: Aug 02, 2019 Therapy Diagnosis Therapy Diagnosis: Decreased ADL skills Height/Weight Height (Feet): 5 Height (Inches): 1.00 Weight (Pounds): 170 Weight (Ounces): 2.0 Precautions Precautions/Isolations: Fall Prevention, Standard Precautions Weight Bear Status Weight Bearing Restriction: Weight Bearing/Tolerated Referral Physician: Dr. Billings Referral Reason: Activity Tolerance, Self Care, Evaluation/Treatment, Strengthening/ROM Medical History Pertinent Medical History: Arthritis, COPD, CVA, DM, HTN, OA Additional Medical History Head trauma, ACL reconstruction. Reviewed History: Yes Social History Home: Single Level Current Living Status: Alone Entry Into Home: Stairs With Railing Steps Into Home: 4 ADL-Prior Level of Function SCALE: Activities may be completed with or without assistive devices. 2-Awspecjlvw-gufvism completes the activity by him/herself with no assistance from a helper. 5-Set-up or Clean-up Assistance-helper sets up or cleans up; patient completes activity. [place] assists only prior to or following the activity. 4-Supervision or Touching Assistance-helper provides verbal cues and/or touching/steadying and/or contact guard assistance as patient completes activity. Assistance may be provided throughout the activity or intermittently. 3-Partial/Moderate Assistance-helper does LESS THAN HALF the effort. [place] lifts, holds or supports trunk or limbs, but provides less than half the effort. 2-Substantial/Maximal Assistance-helper does MORE THAN HALF the effort. [place] lifts or holds trunk or limbs and provides more than half the effort. 6-Lmnrltuuy-nvjhxw does ALL the effort. Patient does none of the effort to complete the activity. Or, the assistance of 2 or more helpers is required for the patient to complete the activity. If activity was not attempted, code reason: 7-Patient Refused. 9-Not Applicable-not attempted and the patient did not perform the activity before the current illness, exacerbation or injury. 10-Not Attempted due to Environmental Limitations-(lack of equipment, weather restraints, etc.). 88-Not Attempted due to Medical Conditions or Safety Concerns. ADL PLOF Comments Pt. states that she was independent with daily tasks prior to this hospitalization. she has a walker at home. Her friend gets her groceries for her. She has a grab bar by her bathtub. Self Care: Independent Functional Cognition: Independent DME/Equipment: Bath Bench, Tub/Shower Drive Self: Yes OT Current Status Subjective Pt. reports pain in knee but does not report pain level but does use her SENIOR CONTROLS ANALYST. Appearance Pt. in bed but agrees to work with OT. Mental Status/Objective Patient Orientation: Person, Place Attachments: IV Current Upper Extremity ROM WFL ADL-Treatment On/Off Footwear (QC): 3 (Pt. is able to bend right LE up to her and doff/don slipper sock. Unable to reach left LE.) Pt. transfers supine-sit with CGA. Pt. is able to sit on side of bed. Pt. is slightly disoriented and does not believe she had surgery yesterday. Pt. thinks that she had a lot of therapy yesterday, and that is why she is sore. Pt. practices doffing/donning slipper socks. Pt. is able to stand at side of bed with CGA, and take 4 steps to right side to HOB. Pt. is able to sit and requires mod assist for sit-supine. Pt. and OT talk about previous home situation. Pt. lives alone with her three dogs. She has friends but does not want to "put them out" by asking for help. animal care worker comes into room and talks with her about ARU. Pt. is agreeable to this. All needs met in room. Education OT Patient Education: Correct positioning, Modified ADL techniques, Progress toward Goal/Update tx plan, Purpose of tx/functional activities, Reviewed precautions, Rehab process, Transfer techniques Teaching Recipient: Patient Teaching Methods: Demonstration, Discussion Response to Teaching: Verbalize Understanding, Return Demonstration OT Short Term Goals Short Term Goals Time Frame: Aug 10, 2019 Eatin Oral hygiene: 5 Toileting hygiene: 3 Shower/bathe self: 3 Upper body dressin Lower body dressin Putting on/taking off footwear: 3 (Min assist) OT Supervisor Graphite Goals Supervisor Graphite Goals Time Frame: Aug 17, 2019 Eating (QC): 6 Oral Hygiene (QC): 6 Toileting Hygiene (QC): 6 Shower/Bathe Self (QC): 5 Upper Body Dressing (QC): 6 Lower Body Dressing (QC): 6 On/Off Footwear (QC): 6 Additional Goals: 1-Demonstrate ADL Tasks, 2-Verbalize Understanding, 3- ImproveStrength/Arnaldo 1=Demonstrate adherence to instructed precautions during ADL tasks. 2=Patient will verbalize/demonstrate understanding of assistive devices/modifications for ADL. 3=Patient will improve strength/tolerance for activity to enable patient to perform ADL's. OT Education/Plan Problem List/Assessment Assessment: Decreased Activ Tolerance, Impaired I ADL's, Impaired Self-Care Skills Discharge Recommendations Plan/Recommendations: Continue POC Therapy Discharge Recommendati: Post Acute OT Comment pt. reports that she will need a BSC at discharge. Treatment Plan/Plan of Care Treatment,Training & Education: Yes Patient would benefit from OT for education, treatment and training to promote independence in ADL's, mobility, safety and/or upper extremity function for ADL's. Plan of Care: ADL Retraining, Functional Mobility, UE Funct Exercise/Act Treatment Duration: Aug 17, 2019 Frequency: 5 times per week Estimated Hrs Per Day: .25 hour per day Agreement: Yes Rehab Potential: Good Time/GCodes Start Time: 08:30 Stop Time: 09:00 Total Time Billed (hr/min): 30 Billed Treatment Time 1, EVM x 15minutes, ADL x 15minutes BANG MEZA OT Aug 03, 2019 10:30
--- NOTE | 2019-08-03 11:11 | NUR ---
RD ASSESSMENT PMHx: HTN; DM; HLD; hypothyroidism; GERD; OA; s/p L TKA PT INTERACTION: Pt was awake and pleasant during nutrition assessment. Pt states current appetite is "okay." Note avg PO intake 75% x2meal, per chart review. Pt states following a coumadin diet at home avoids Vitamin-K containing foods, and has no issues with chewing/swallowing food. Pt states some recent issues with nausea, but not with vomiting, constipation, or diarrhea. Note last BM was 6/3, and pt current on bowel regimen of senna BID, per chart review. Pt states recent 5# wt loss x1week, d/t to poor appetite. Note recent 2# wt gain x7mon, per chart review. Pt states current DM management is pretty good, with avg blood glucose levels between 110-120. Note unable to determine recent HbA1c, per chart review. ABNORMAL NUTRITION-RELATED LAB VALUES LOW: HIGH: glu 115 Est. kcal needs: 5245-5541 kcal | 15-18 kcal/kg Est. Pro needs: 66-83 g Pro | 0.8-1.0 g Pro/kg PES STATEMENT: Given current PO intake, no nutrition diagnosis at this time (NO-1.1) INTERVENTION: Continue with current diet order of CHO 60g/m 1snack diet. Offered diet education on DM management, but pt declined at this time. Pt states she does pretty well with her DM management. Will continue to follow and reassess as pt needs, intake, and status change. MONITOR/EVALUATE: PO Intake; Plan of Care; Hydration Status; Weight Status; Lab Values Beckie Medeiros, MS, RD, LD
[2019-08-03 12:15] VITALS: BP 151/65
--- NOTE | 2019-08-03 12:32 | Anesthesia-General Post-Op ---
General Patient Condition Mental Status/LOC: Same as Preop Cardiovascular: Satisfactory Nausea/Vomiting: Absent Respiratory: Satisfactory Pain: Controlled Complications: Absent Post Op Complications Complications None Follow Up Care/Instructions Patient Instructions None needed. Anesthesia/Patient Condition Patient Condition Patient is doing well, no complaints, stable vital signs, no apparent adverse anesthesia problems. No complications reported per nursing. D/C home per [facility] Criteria: Yes SABIHA DOSS CRNA Aug 03, 2019 12:32
--- NOTE | 2019-08-03 14:16 | Physical Therapy Daily Note ---
PT Daily Note-Current Subjective Patient agrees to PT. She is confused on pain medication and use. PT educated patient on use of pain pump for break through pain and to ask for pain pills as ordered by physician (every 2 hours). Patient continues to be confused. Pain Numeric Pain Scale: 8 Location: Left Location Body Site: Knee Pain Description: Acute Mental Status Patient Orientation: Person, Time, Situation Attachments: IV Transfers SCALE: Activities may be completed with or without assistive devices. 5-Exfwwrcnkt-biqkwsf completes the activity by him/herself with no assistance from a helper. 5-Set-up or Clean-up Assistance-helper sets up or cleans up; patient completes activity. [place] assists only prior to or following the activity. 4-Supervision or Touching Assistance-helper provides verbal cues and/or touching/steadying and/or contact guard assistance as patient completes activi ty. Assistance may be provided throughout the activity or intermittently. 3-Partial/Moderate Assistance-helper does LESS THAN HALF the effort. [place] lifts, holds or supports trunk or limbs, but provides less than half the effort. 2-Substantial/Maximal Assistance-helper does MORE THAN HALF the effort. [place] lifts or holds trunk or limbs and provides more than half the effort. 6-Jwalarzaj-xqzgne does ALL the effort. Patient does none of the effort to complete the activity. Or, the assistance of 2 or more helpers is required for the patient to complete the activity. If activity was not attempted, code reason: 7-Patient Refused. 9-Not Applicable-not attempted and the patient did not perform the activity before the current illness, exacerbation or injury. 10-Not Attempted due to Environmental Limitations-(lack of equipment, weather restraints, etc.). 88-Not Attempted due to Medical Conditions or Safety Concerns. Sit to Stand (QC): 6 Toilet Transfer (QC): 6 patient toileted self independently and washed hands after toilet use Weight Bearing Left Lower Extremity: Left Weight Bearing/Tolerated Gait Training Does the Patient Walk?: Yes Distance: 600' Walk 10 feet (QC): 6 Walk 50 ft with 2 Turns(QC): 6 Walk 150 ft (QC): 6 Gait Assistive Device: FWW slow, reciprocal pattern Stair Training Stair Training: Handrails/: 1 handrail, uses walker #of Steps: 3 1 Step (curb) (QC): 4 Exercises Seated Therapy Exercises: Ankle pumps, Long arc quads Seated Reps: 15 Assessment Patient becomes slightly agitated during treatment due to confusion. Patient tolerated treatment well and is up in recliner with needs met. PT Usp Goals Usp Goals PT Rod Mill Operator Goals Time Frame: Aug 09, 2019 Roll Left & Right (QC): 6 Sit to Lying (QC): 6 Lying-Sitting on Side/Bed(QC): 6 Sit to Stand (QC): 4 Chair/Dig-iu-Ioxta Xfer(QC): 4 Walk 10 feet (QC): 4 Walk 50ft with 2 Turns (QC): 4 1 Step (curb) (QC): 4 PT Plan Treatment/Plan Treatment Plan: Continue Plan of Care Treatment Plan: Bed Mobility, Education, Functional Activity Arnaldo, Functional Strength, Gait, Safety, Therapeutic Exercise, Transfers Treatment Duration: Aug 09, 2019 Frequency: 11 times per week Estimated Hrs Per Day: .25 hour per day Patient and/or Family Agrees t: Yes Time/GCodes Time In: 1338 Time Out: 1403 Total Billed Treatment Time: 25 Total Billed Treatment 1 visit EX 15 min GT 10 min ANDREZ CHAMBERS PT Aug 03, 2019 14:16
--- NOTE | 2019-08-03 15:39 | NUR ---
Pastoral care visit.
[2019-08-03 16:00] VITALS: BP 185/82
[2019-08-03] MEDS ORDERED: warFARin 4 MG (COUMADIN) TAB PO SCH (18:00)
[2019-08-03 20:00] VITALS: BP 168/84
[2019-08-03 22:10] LABS: INR 1.1 (0.8-1.4); PROTHROMBIN TIME PATIENT 14.4 SEC (12.2-14.7)
--- NOTE | 2019-08-03 22:29 | DISCHARGE SUMMARY ---
DATE OF SERVICE: DATE OF DISCHARGE: 08/04/2019. DIAGNOSES: 1. Left knee primary osteoarthritis. 2. Hypertension. 3. Hyperlipidemia. 4. Diabetes. 5. Hypothyroidism. 6. Reflux. 7. Degenerative disk disease. 8. Migraines. 9. Depression. 10. Anxiety. 11. Head trauma. 12. Antiphospholipid syndrome. 13. Shingles. PROCEDURE: Left total knee arthroplasty. HISTORY: The patient is a 68-year-old female, who was admitted today with left total knee arthroplasty. Postoperatively, she did very well. At time of discharge, her wound was clean and dry. She has no calf tenderness. Negative Homans sign. She was progressing well with physical therapy. CONDITION AT DISCHARGE: Good. DISCHARGE DIET: Regular. DISPOSITION: Transferred to the inpatient rehabilitation unit for continued physical and occupational therapy. Job ID: [id number] DocumentID: [id number] Dictated Date: 08/03/2019 16:19:40 Customs Examiner Date: 08/03/2019 22:28:24 Dictated By: BEN GARCIA MD
[2019-08-04] VITALS (7 sets, daily range): BP systolic 130–169; BP diastolic 71–82
[2019-08-04] MEDS: NS IV 1000 ML 1,000 ML IV SCH (00:24)
[2019-08-04 06:17] LABS: HEMOGLOBIN 9.4 G/DL (11.5-16.0)
[2019-08-04] MEDS: MULTIVIT W/MINERALS TAB (THERAGRAN M) PO SCH (06:46)
[2019-08-04] MEDS: glipiZIDE 5 MG (GLUCOTROL) TAB PO SCH ×2 (06:46→18:02)
[2019-08-04] MEDS: VENlafaxine XR 75 MG (EFFEXOR XR) CAP PO SCH (06:46)
[2019-08-04] MEDS: LEVOTHYROXINE 150 MCG (LEVOTHROID) TAB PO SCH (06:46)
--- NOTE | 2019-08-04 06:57 | Progress Note ---
Standard Progress Note Progress Notes/Assess & Plan Date Seen by a Provider: Aug 04, 2019 Time Seen by a Provider: 06:56 Progress/Assessment & Plan post op check No complaints denies paresthesia Radiographs--HW well positioned without fracture LLE--2 plus DP pulse with brisk cap refill. sensation intact to light touch throughout. Intact DF and PF of toes and ankle s/p LTKA mobilize as able Final Diagnosis feeling better today Vital Signs Date Time Temp Pulse Resp B/P (MAP) Pulse Ox O2 Delivery O2 Flow Rate FiO2 08/04/19 04:00 37.4 107 20 159/75 (103) 97 Nasal Cannula 1.50 08/04/19 03:04 96 NIV CPAP 28 08/04/19 00:34 37.0 107 21 169/80 (109) 96 Nasal Cannula 1.50 08/03/19 22:25 87 Room Air 21 08/03/19 20:00 36.6 106 20 168/84 (112) 97 Nasal Cannula 1.50 08/03/19 19:11 94 Nasal Cannula 2.00 08/03/19 16:00 36.8 90 18 185/82 (116) 97 Nasal Cannula 1.00 08/03/19 14:26 92 Room Air 08/03/19 12:15 35.8 92 19 151/65 (93) 93 Nasal Cannula 1.00 08/03/19 10:10 92 Room Air 08/03/19 09:00 98 Room Air 08/03/19 08:00 37.9 100 20 147/67 (93) 93 Nasal Cannula 1.00 08/03/19 07:05 98 Room Air 08/03/19 07:00 20 I & O 08/04/19 07:00 Intake Total 1180 ml Output Total 775 ml Balance 405 ml Laboratory Tests Test 08/03/19 11:42 08/03/19 16:06 08/03/19 20:59 08/03/19 21:40 Range/Units Glucometer 105 104 90 70-110 MG/DL Prothrombin Time 14.4 12.2-14.7 SEC INR Comment 1.1 0.8-1.4 Test 08/04/19 05:29 08/04/19 06:00 Range/Units Glucometer 121 H 70-110 MG/DL Hemoglobin 9.4 L 11.5-16.0 G/DL Hematocrit 29 L 35-52 % L LE--incision clean and dry. No calf tenderness. Neg Brian's. Neg SLR s/p ADALBERTO doing well DC to IRU today BEN GARCIA MD Aug 04, 2019 06:57
--- NOTE | 2019-08-04 09:43 | NUR ---
STAFF OBTAINING EKG WHEN THIS RN ARRIVED TO ROOM. PER ANOTHER RN REPORT PT HAD REPORTED SHORTNESS OF BREATH WITH CHEST PAIN. DR BAKER WAS PRESENT IN ROOM WHEN PT REPORTED. DR BAKER CONSULTED DR. SAHU VIA PHONE. VS OBTAINED AND LABS WERE ORDERED.
[2019-08-04] MEDS: ENOXAPARIN 30 MG/0.3 ML (LOVENOX) SYR SC SCH ×2 (09:49→19:50)
[2019-08-04] MEDS: SENNA W/DOCUSATE (SENOKOT S) TABLET PO SCH ×2 (09:50→19:51)
[2019-08-04] MEDS: PANTOPRAZOLE 20 MG TABLET (PROTONIX) PO SCH (09:50)
[2019-08-04] MEDS: lisINopril 40 MG (PRINIVIL) TABLET PO SCH (09:50)
[2019-08-04] MEDS: ASPIRIN E.C. 81 MG (ECOTRIN) TAB PO SCH (09:50)
--- NOTE | 2019-08-04 09:50 | NUR ---
70ML OF MORPHINE WASTED WITH ERIC KLEIN RN
[2019-08-04] MEDS: TIMOLOL MALEATE 0.5% 5 ML (TIMOPTIC) BTL OU SCH (09:53)
--- NOTE | 2019-08-04 09:57 | Progress Note ---
Subjective Subjective Date Seen by Provider: Aug 04, 2019 Time Seen by Provider: 09:40 PT REPORTS THAT SHE IS FEELING OKAY, THEN REPORTS THAT SHE IS HAVING SOME CHEST PRESSURE AND WAS RUBBING HER CHEST DURING MY EXAM. PT REPORTS THAT HER BP WAS IN THE 200/100 RANGE YESTERDAY AND HER OXYGEN DROPPED WELL YESTERDAY. Review of Systems General: No Chills, No Fatigue HEENT: No Visual Changes, No Dysphasia Pulmonary: No Dyspnea, No Cough Cardiovascular: Chest Pain; No: Palpitations Gastrointestinal: No: Nausea, Abdominal Pain, Constipation Genitourinary: No Dysuria, No Frequency Musculoskeletal: leg pain Neurological: Weakness; No: Confusion All Other Systems Reviewed All Other Systems Reviewed: Yes Objective Exam Vital Signs Vital Signs - First Documented 08/03/19 22:25 FiO2 21 Capillary Refill : Less Than 3 SecondsLess Than 3 Seconds General Appearance: No Apparent Distress, WD/WN Eyes: Bilateral Eye Normal Inspection, Bilateral Eye PERRL, Bilateral Eye EOMI HEENT: PERRL/EOMI, Pharynx Normal Neck: Full Range of Motion, Normal Inspection, Non Tender, Supple Respiratory: Chest Non Tender, Lungs Clear, Normal Breath Sounds, No Accessory Muscle Use, No Respiratory Distress Cardiovascular: Regular Rate, Rhythm, Normal Peripheral Pulses Gastrointestinal: Normal Bowel Sounds, Non Tender, Soft Rectal: Deferred Back: Normal Inspection Extremity: Pedal Edema (TRACE LEFT LEG), Other (BLOODY SURGICAL DRESSING IN PLACE, CHANG HOSE BILATERAL LOWER LEGS) Neurologic/Psychiatric: Alert, Oriented x3, No Motor/Sensory Deficits, Normal Mood/Affect, 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 GARCIA - PT HAS DECIDED TO AGREE TO INPATIENT REHAB DUE TO HER WEAKNESS AND PAIN AND NEED FOR HELP AT HOME WHICH SHE DOES NOT HAVE ANYONE AT HOME TO HELP. HYPERTENSION - RESUMED HOME REGIMEN CHRONIC ANTICOAGULATION FOR CLOTTING DISORDER DUE TO ANTIPHOSPHOLIPID SYNDROME - PT ON LOVENOX - RESTARTED COUMADIN AND WILL CONTINUE WITH LOVENOX UNTIL INR GETS UP TO GREATER THAN 2 DIABETES MELLITUS - RESUME GLIPIZIDE HYPERTENSION - RESUMED HOME REGIMEN CHEST PRESSURE - CONSULT TO DR. SAHU - STAT EKG AND CARDIAC ANALYZER HOLD TRANSFER TO INPATIENT REHAB UNTIL EKG AND LABS ARE BACK Assessment and Plan OSTEOARTHRITIS LEFT KNEE REPLACEMENT HYPERTENSION CHRONIC ANTICOAGULATION FOR CLOTTING DISORDER DUE TO ANTIPHOSPHOLIPID SYNDROME DIABETES MELLITUS HYPERTENSION Admission Dx OSTEOARTHRITIS LEFT KNEE REPLACEMENT HYPERTENSION CHRONIC ANTICOAGULATION 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 GARCIA - WILL NEED THERAPY AT HOME WITH HOME HEALTH HYPERTENSION - RESUMED HOME REGIMEN CHRONIC ANTICOAGULATION FOR CLOTTING DISORDER DUE TO ANTIPHOSPHOLIPID SYNDROME - PT ON LOVENOX - RESTARTED COUMADIN AND WILL CONTINUE WITH LOVENOX UNTIL INR GETS UP TO GREATER THAN 2 DIABETES MELLITUS - RESUME GLIPIZIDE HYPERTENSION - RESUMED HOME REGIMEN PT WILL NEED INR ON Wednesday AND THIS WEEKEND WITH HOME HEALTH. Clinical Quality Measures Admission Status Admission Dx OSTEOARTHRITIS LEFT KNEE REPLACEMENT HYPERTENSION CHRONIC ANTICOAGULATION 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 GARCIA - WILL NEED THERAPY AT HOME WITH HOME HEALTH HYPERTENSION - RESUMED HOME REGIMEN CHRONIC ANTICOAGULATION FOR CLOTTING DISORDER DUE TO ANTIPHOSPHOLIPID SYNDROME - PT ON LOVENOX - RESTARTED COUMADIN AND WILL CONTINUE WITH LOVENOX UNTIL INR GETS UP TO GREATER THAN 2 DIABETES MELLITUS - RESUME GLIPIZIDE HYPERTENSION - RESUMED HOME REGIMEN PT WILL NEED INR ON Wednesday AND THIS WEEKEND WITH HOME HEALTH. DVT/VTE Risk/Contraindication: Risk Factor Score Per Nursin RFS Level Per Nursing on Admit: 4+=Very High JEVON BAKER MD Aug 04, 2019 09:57
--- NOTE | 2019-08-04 10:05 | NUR ---
PT AMBULATED TO CHAIR FROM BATHROOM WITH THIS RN AT SIDE. PT REPORTS FEELING BETTER. DR SAHU ARRIVED TO SEE PT. PT SITTING UP IN CHAIR, NEEDS MET AT THIS TIME. CALL LIGHT WITHIN REACH.
[2019-08-04 10:09] LABS: CREATINE KINASE MB 5.4 NG/ML (<6.6)
--- NOTE | 2019-08-04 10:16 | NUR ---
DR BAKER NOTIFIED OF TROP. 0.823. DR BAKER NOTIFIED DR SAHU VIA PHONE. WILL WAIT FOR FURTHER ORDERS FROM DR SAHU.
[2019-08-04] MEDS: HYDROmorphone (DILAUDID) 4 MG TAB PO PRN ×3 (10:20→19:51)
--- NOTE | 2019-08-04 10:22 | NUR ---
DR SAHU GAVE ORDERS FOR PT TO STAY ON 4TH FLOOR..WILL AWAIT FOR FURTHER ORDERS.
[2019-08-04 10:58] LABS: BASOPHILS % (AUTO) 0 % (0-10); EOSINOPHILS # (AUTO) 0.3 10^3/uL (0.0-0.3); EOSINOPHILS % (AUTO) 4 % (0-10); HEMATOCRIT 30 % (35-52); HEMOGLOBIN 9.7 G/DL (11.5-16.0); LYMPHOCYTES # (AUTO) 0.9 X 10^3 (1.0-4.0); LYMPHOCYTES % (AUTO) 12 % (12-44); MEAN CORPUSCULAR HEMOGLOBIN 26 PG (25-34); MEAN CORPUSCULAR HGB CONC 32 G/DL (32-36); MEAN CORPUSCULAR VOLUME 80 FL (80-99); MONOCYTES # (AUTO) 0.6 X 10^3 (0.0-1.0); MONOCYTES % (AUTO) 8 % (0-12); NEUTROPHILS # (AUTO) 5.9 X 10^3 (1.8-7.8); NEUTROPHILS % (AUTO) 76 % (42-75); PLATELET COUNT 99 10^3/uL (130-400); RED CELL DISTRIBUTION WIDTH 15.8 % (10.0-14.5); WHITE BLOOD COUNT 7.7 10^3/uL (4.3-11.0)
[2019-08-04 11:21] LABS: ALANINE AMINOTRANSFERASE 34 U/L (0-55); ALBUMIN 3.4 GM/DL (3.2-4.5); ALKALINE PHOSPHATASE 113 U/L (40-136); BILIRUBIN,TOTAL 0.6 MG/DL (0.1-1.0); BUN/CREATININE RATIO 17; CALCIUM 8.3 MG/DL (8.5-10.1); CARBON DIOXIDE 24 MMOL/L (21-32); CHLORIDE 102 MMOL/L (98-107); CREATININE SERUM 0.81 MG/DL (0.60-1.30); GFR ESTIMATED > 60; GLUCOSE 99 MG/DL (70-105); POTASSIUM 3.8 MMOL/L (3.6-5.0); SODIUM 133 MMOL/L (135-145); TOTAL PROTEIN 6.3 GM/DL (6.4-8.2)
--- NOTE | 2019-08-04 11:28 | Occ Therapy Progress Note ---
Therapy Progress Note Pt was scheduled for transfer to inpatient rehab and developed chest pain. Therapist choosing to hold therapy pending tests and labs. RONY IBARRA OT Aug 04, 2019 11:28
--- NOTE | 2019-08-04 12:33 | Physical Therapy Progress Note ---
Therapy Progress Note Patient was scheduled to come to rehab but started developing chest pain. Hold for now whole patient gets testing done. Will check on patient tomorrow. CHARLEE FRANCISCO PT Aug 04, 2019 12:33
--- NOTE | 2019-08-04 14:07 | Occ Therapy Progress Note ---
Therapy Progress Note OT to hold tx on this date due to medical status, will initiate on next available date. SMILEY RICE OTR Aug 04, 2019 14:07
[2019-08-04] MEDS ORDERED: warFARin 5 MG (COUMADIN) TAB PO SCH (18:00)
--- NOTE | 2019-08-04 18:02 | Consultation-Cardiology ---
HPI-Cardiology Cardiology Consultation Date of Consultation 08/04/19 Date of Admission Time Seen by Provider: 10:30 Indication: chest pain HPI 68-year-old lady well-known to my practice, had knee replacement surgery this morning, postoperatively she was doing well, started to have chest pain described it as dull in nature in the retrosternal area. Associated with deep inspiration. Did not last long, reported improvement. EKG did not show any acute abnormality. On my evaluation later in the evening she reported that she is feeling well. No new complaint. No chest pain was reported. Home Medications & Allergies Allergies: Coded Allergies: Sulfa (Sulfonamide Antibiotics) (Verified Allergy, Intermediate, GI UPSET, 08/02/19) acetaminophen (Verified Allergy, Intermediate, "FEELS BAD", 08/02/19) chocolate flavor (Verified Allergy, Intermediate, MIGRAINES, 08/02/19) oxycodone (Verified Allergy, Intermediate, "FEELS BAD", 08/02/19) Dcbuezm-Mjc-Dzn Reductase Inhibitor (Verified Allergy, Unknown, leg cramps, 08/02/19) chromium (Verified Allergy, Unknown, Hives, 08/02/19) clonazepam (Verified Allergy, Unknown, depression, 08/02/19) gold Au 198 (Verified Allergy, Unknown, Hives, 08/02/19) sodium thiosulfate (Verified Allergy, Unknown, Hives, 08/02/19) sulfacetamide (Verified Allergy, Unknown, Nausea, 08/02/19) titanium (Verified Allergy, Unknown, Hives, 08/02/19) Uncoded Allergies: METAL (Allergy, Intermediate, HIVES, 09/21/16) Home Medication List Reviewed: Yes [id number] Hx Patient Social History Marital Status: Employed/Student: unemployed Alcohol Use: Denies Use Recreational Drug Use: No Smoking Status: Former Smoker Recent Foreign Travel: No Recent Infectious Disease Expo: No Recent Hopitalizations: No Physical Abuse Screen: No Sexual Abuse: No Immunizations Up To Date Date of Pneumonia Vaccine: Feb 27, 2019 Date of Influenza Vaccine: Dec 22, 2015 Past Medical History Discussed below Family Medical History Family History: Alzheimer's disease 19 MOTHER Arthritis 19 MOTHER Cardiovascular disease 19 FATHER Congenital heart disease Diabetes mellitus 19 MOTHER Hypertension 19 MOTHER Myocardial infarction 19 FATHER Review of Systems-General Review of Systems Constitutional: no symptoms reported, see HPI, diaphoresis EENTM: see HPI, no symptoms reported Respiratory: see HPI; No cough, No dyspnea on exertion, No hemoptysis, No o rthopnea, No phlegm, No short of breath, No stridor, No wheezing, No other Cardiovascular: see HPI, chest pain; No edema, No Hx of Intervention, No palpitations, No syncope, No vascular heart diseas, No other Gastrointestinal: no symptoms reported, see HPI Genitourinary: no symptoms reported, see HPI Musculoskeletal: see HPI, joint pain, muscle weakness Skin: no symptoms reported, see HPI Psychiatric/Neurological: No Symptoms Reported, See HPI All Other Systems Reviewed Negative Unless Noted: Yes Reviewed Test Results Reviewed Test Results Lab Laboratory Tests Test 08/03/19 20:59 08/03/19 21:40 08/04/19 05:29 08/04/19 06:00 Range/Units Glucometer 90 121 H 70-110 MG/DL Prothrombin Time 14.4 12.2-14.7 SEC INR Comment 1.1 0.8-1.4 Hemoglobin 9.4 L 11.5-16.0 G/DL Hematocrit 29 L 35-52 % Creatine Kinase MB 5.4 <6.6 NG/ML Myoglobin 91.3 10.0-92.0 NG/ML Troponin I 0.823 *H <0.028 NG/ML Test 08/04/19 10:50 08/04/19 11:24 08/04/19 15:43 Range/Units White Blood Count 7.7 4.3-11.0 10^3/uL Red Blood Count 3.75 L 4.35-5.85 10^6/uL Hemoglobin 9.7 L 11.5-16.0 G/DL Hematocrit 30 L 35-52 % Mean Corpuscular Volume 80 80-99 FL Mean Corpuscular Hemoglobin 26 25-34 PG Mean Corpuscular Hemoglobin Concent 32 32-36 G/DL Red Cell Distribution Width 15.8 H 10.0-14.5 % Platelet Count 99 L 130-400 10^3/uL Mean Platelet Volume 10.0 7.4-10.4 FL Neutrophils (%) (Auto) 76 H 42-75 % Lymphocytes (%) (Auto) 12 12-44 % Monocytes (%) (Auto) 8 0-12 % Eosinophils (%) (Auto) 4 0-10 % Basophils (%) (Auto) 0 0-10 % Neutrophils # (Auto) 5.9 1.8-7.8 X 10^3 Lymphocytes # (Auto) 0.9 L 1.0-4.0 X 10^3 Monocytes # (Auto) 0.6 0.0-1.0 X 10^3 Eosinophils # (Auto) 0.3 0.0-0.3 10^3/uL Basophils # (Auto) 0.0 0.0-0.1 10^3/uL Sodium Level 133 L 135-145 MMOL/L Potassium Level 3.8 3.6-5.0 MMOL/L Chloride Level 102 98-107 MMOL/L Carbon Dioxide Level 24 21-32 MMOL/L Anion Gap 7 5-14 MMOL/L Blood Urea Nitrogen 14 7-18 MG/DL Creatinine 0.81 0.60-1.30 MG/DL Estimat Glomerular Filtration Rate > 60 BUN/Creatinine Ratio 17 Glucose Level 99 70-105 MG/DL Calcium Level 8.3 L 8.5-10.1 MG/DL Corrected Calcium 8.8 8.5-10.1 MG/DL Total Bilirubin 0.6 0.1-1.0 MG/DL Aspartate Amino Transf (AST/SGOT) 32 5-34 U/L Alanine Aminotransferase (ALT/SGPT) 34 0-55 U/L Alkaline Phosphatase 113 40-136 U/L Total Protein 6.3 L 6.4-8.2 GM/DL Albumin 3.4 3.2-4.5 GM/DL Glucometer 118 H 113 H 70-110 MG/DL Physical Exam Physical Exam Vital Signs Vital Signs - First Documented 08/03/19 22:25 FiO2 21 Capillary Refill : Less Than 3 SecondsLess Than 3 Seconds Height, Weight, BMI Height: 5'1.00" Weight: 170lbs. 2.0oz. [id number]; 34.42 BMI Method: General Appearance: No Apparent Distress, WD/WN Eyes: Bilateral Eye Normal Inspection, Bilateral Eye PERRL, Bilateral Eye EOMI HEENT: PERRL/EOMI, Pharynx Normal Neck: Full Range of Motion, Normal Inspection, Non Tender, Supple Respiratory: Chest Non Tender, Lungs Clear, Normal Breath Sounds, No Accessory Muscle Use, No Respiratory Distress Cardiovascular: Regular Rate, Rhythm, Normal Peripheral Pulses Gastrointestinal: Normal Bowel Sounds, Non Tender, Soft Rectal: Deferred Back: Normal Inspection Extremity: Pedal Edema (TRACE LEFT LEG), Other (BLOODY SURGICAL DRESSING IN PLACE, CHANG HOSE BILATERAL LOWER LEGS) Neurologic/Psychiatric: Alert, Oriented x3, No Motor/Sensory Deficits, Normal Mood/Affect, 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 I will reevaluate troponin in the morning. Continue to monitor Status post knee replacement surgery. Recovering slowly. History of antiphospholipid antibody syndrome, hypercoagulable state, history of DVT, renal infarction, history of peripheral vascular disease, continue on Coumadin, use heparin bridging at this time until INR is therapeutic again Hypertension, restart home medication monitor blood pressure Hyperlipidemia, monitor lipids History of carotid stenosis with tortuosity. Last ultrasound done in December 2018 History of renal artery stenosis. Continue to monitor next Hypothyroidism followed and managed by primary care physician Diabetes mellitus, followed and managed by primary care physician Gastroesophageal reflux disease History of ankle surgery. Clinical Quality Measures DVT/VTE Risk/Contraindication: Risk Factor Score Per Nursin RFS Level Per Nursing on Admit: 4+=Very High DYLAN SAHU MD Aug 04, 2019 6:02 pm
[2019-08-05] MEDS: HYDROmorphone (DILAUDID) 4 MG TAB PO PRN (02:52)
[2019-08-05 04:30] VITALS: BP 118/70
[2019-08-05] MEDS: MULTIVIT W/MINERALS TAB (THERAGRAN M) PO SCH (05:05)
[2019-08-05] MEDS: glipiZIDE 5 MG (GLUCOTROL) TAB PO SCH (05:06)
[2019-08-05] MEDS: LEVOTHYROXINE 150 MCG (LEVOTHROID) TAB PO SCH (05:06)
[2019-08-05] MEDS: VENlafaxine XR 75 MG (EFFEXOR XR) CAP PO SCH (05:06)
[2019-08-05 06:51] LABS: HEMOGLOBIN 9.3 G/DL (11.5-16.0); RED CELL DISTRIBUTION WIDTH 16.1 % (10.0-14.5); WHITE BLOOD COUNT 7.2 10^3/uL (4.3-11.0)
[2019-08-05 06:57] LABS: PROTHROMBIN TIME PATIENT 13.8 SEC (12.2-14.7)
[2019-08-05 06:58] LABS: ALBUMIN 3.2 GM/DL (3.2-4.5)
[2019-08-05 06:59] LABS: CHLORIDE 102 MMOL/L (98-107); POTASSIUM 3.8 MMOL/L (3.6-5.0); SODIUM 136 MMOL/L (135-145)
[2019-08-05 07:00] LABS: CALCIUM 8.5 MG/DL (8.5-10.1)
[2019-08-05 07:01] LABS: GLUCOSE 84 MG/DL (70-105); TOTAL PROTEIN 6.1 GM/DL (6.4-8.2)
[2019-08-05 07:02] LABS: CARBON DIOXIDE 24 MMOL/L (21-32)
[2019-08-05 07:03] LABS: BILIRUBIN,TOTAL 0.7 MG/DL (0.1-1.0)
[2019-08-05 07:04] LABS: ALKALINE PHOSPHATASE 108 U/L (40-136)
[2019-08-05 07:05] LABS: CREATININE SERUM 0.89 MG/DL (0.60-1.30); GFR ESTIMATED > 60
[2019-08-05 07:06] LABS: BUN/CREATININE RATIO 12
[2019-08-05 07:08] LABS: ALANINE AMINOTRANSFERASE 26 U/L (0-55)
[2019-08-05 08:00] VITALS: BP 121/73
--- NOTE | 2019-08-05 08:00 | NUR ---
Dr COOLEY NOTIFIED OF CRITICAL TROP 0.225
--- NOTE | 2019-08-05 08:01 | Progress Note ---
Standard Progress Note Progress Notes/Assess & Plan Date Seen by a Provider: Aug 05, 2019 Time Seen by a Provider: 07:58 Progress/Assessment & Plan post op check No complaints denies paresthesia Radiographs--HW well positioned without fracture LLE--2 plus DP pulse with brisk cap refill. sensation intact to light touch throughout. Intact DF and PF of toes and ankle s/p LTKA mobilize as able Final Diagnosis no complaints would like to go home instead of IRU Vital Signs Date Time Temp Pulse Resp B/P (MAP) Pulse Ox O2 Delivery O2 Flow Rate FiO2 08/05/19 04:30 37.0 90 21 118/70 (86) 91 08/05/19 02:52 36.5 08/05/19 00:00 36.5 08/04/19 21:00 36.2 08/04/19 20:30 93 Nasal Cannula 1.50 08/04/19 19:51 36.2 08/04/19 19:29 36.2 97 18 130/75 (93) 93 Nasal Cannula 1.50 08/04/19 16:03 36.0 98 18 145/80 (101) 94 Nasal Cannula 1.50 08/04/19 14:55 97 Room Air 08/04/19 12:15 36.0 88 19 151/71 (97) 99 Nasal Cannula 1.50 08/04/19 10:28 95 Room Air 08/04/19 09:52 101 20 159/82 (107) 96 Room Air 08/04/19 09:00 99 Room Air 08/04/19 08:00 35.8 94 19 159/81 (107) 95 Nasal Cannula 1.50 I & O 08/05/19 07:00 Intake Total 1840 ml Output Total 200 ml Balance 1640 ml Laboratory Tests Test 08/04/19 10:50 08/04/19 11:24 08/04/19 15:43 08/04/19 20:38 Range/Units White Blood Count 7.7 4.3-11.0 10^3/uL Red Blood Count 3.75 L 4.35-5.85 10^6/uL Hemoglobin 9.7 L 11.5-16.0 G/DL Hematocrit 30 L 35-52 % Mean Corpuscular Volume 80 80-99 FL Mean Corpuscular Hemoglobin 26 25-34 PG Mean Corpuscular Hemoglobin Concent 32 32-36 G/DL Red Cell Distribution Width 15.8 H 10.0-14.5 % Platelet Count 99 L 130-400 10^3/uL Mean Platelet Volume 10.0 7.4-10.4 FL Neutrophils (%) (Auto) 76 H 42-75 % Lymphocytes (%) (Auto) 12 12-44 % Monocytes (%) (Auto) 8 0-12 % Eosinophils (%) (Auto) 4 0-10 % Basophils (%) (Auto) 0 0-10 % Neutrophils # (Auto) 5.9 1.8-7.8 X 10^3 Lymphocytes # (Auto) 0.9 L 1.0-4.0 X 10^3 Monocytes # (Auto) 0.6 0.0-1.0 X 10^3 Eosinophils # (Auto) 0.3 0.0-0.3 10^3/uL Basophils # (Auto) 0.0 0.0-0.1 10^3/uL Sodium Level 133 L 135-145 MMOL/L Potassium Level 3.8 3.6-5.0 MMOL/L Chloride Level 102 98-107 MMOL/L Carbon Dioxide Level 24 21-32 MMOL/L Anion Gap 7 5-14 MMOL/L Blood Urea Nitrogen 14 7-18 MG/DL Creatinine 0.81 0.60-1.30 MG/DL Estimat Glomerular Filtration Rate > 60 BUN/Creatinine Ratio 17 Glucose Level 99 70-105 MG/DL Calcium Level 8.3 L 8.5-10.1 MG/DL Corrected Calcium 8.8 8.5-10.1 MG/DL Total Bilirubin 0.6 0.1-1.0 MG/DL Aspartate Amino Transf (AST/SGOT) 32 5-34 U/L Alanine Aminotransferase (ALT/SGPT) 34 0-55 U/L Alkaline Phosphatase 113 40-136 U/L Total Protein 6.3 L 6.4-8.2 GM/DL Albumin 3.4 3.2-4.5 GM/DL Glucometer 118 H 113 H 124 H 70-110 MG/DL Test 08/05/19 06:07 Range/Units White Blood Count 7.2 4.3-11.0 10^3/uL Red Blood Count 3.61 L 4.35-5.85 10^6/uL Hemoglobin 9.3 L 11.5-16.0 G/DL Hematocrit 29 L 35-52 % Mean Corpuscular Volume 81 80-99 FL Mean Corpuscular Hemoglobin 26 25-34 PG Mean Corpuscular Hemoglobin Concent 32 32-36 G/DL Red Cell Distribution Width 16.1 H 10.0-14.5 % Platelet Count 118 L 130-400 10^3/uL Mean Platelet Volume 10.0 7.4-10.4 FL Prothrombin Time 13.8 12.2-14.7 SEC INR Comment 1.0 0.8-1.4 Sodium Level 136 135-145 MMOL/L Potassium Level 3.8 3.6-5.0 MMOL/L Chloride Level 102 98-107 MMOL/L Carbon Dioxide Level 24 21-32 MMOL/L Anion Gap 10 5-14 MMOL/L Blood Urea Nitrogen 11 7-18 MG/DL Creatinine 0.89 0.60-1.30 MG/DL Estimat Glomerular Filtration Rate > 60 BUN/Creatinine Ratio 12 Glucose Level 84 70-105 MG/DL Calcium Level 8.5 8.5-10.1 MG/DL Corrected Calcium 9.1 8.5-10.1 MG/DL Total Bilirubin 0.7 0.1-1.0 MG/DL Aspartate Amino Transf (AST/SGOT) 28 5-34 U/L Alanine Aminotransferase (ALT/SGPT) 26 0-55 U/L Alkaline Phosphatase 108 40-136 U/L Troponin I 0.631 *H <0.028 NG/ML Total Protein 6.1 L 6.4-8.2 GM/DL Albumin 3.2 3.2-4.5 GM/DL LLE--incision clean and dry. no calf tenderness. Neg Brian's. s/p LTKA doing well DC to home when Oked by Cardiology appreciated assistance BEN GARCIA MD Aug 05, 2019 08:00
[2019-08-05] MEDS: ENOXAPARIN 30 MG/0.3 ML (LOVENOX) SYR SC SCH (08:53)
[2019-08-05] MEDS: TIMOLOL MALEATE 0.5% 5 ML (TIMOPTIC) BTL OU SCH (08:53)
[2019-08-05] MEDS: SENNA W/DOCUSATE (SENOKOT S) TABLET PO SCH (08:54)
[2019-08-05] MEDS: lisINopril 40 MG (PRINIVIL) TABLET PO SCH (08:54)
[2019-08-05] MEDS: ASPIRIN E.C. 81 MG (ECOTRIN) TAB PO SCH (08:55)
[2019-08-05] MEDS: PANTOPRAZOLE 20 MG TABLET (PROTONIX) PO SCH (08:55)
--- NOTE | 2019-08-05 11:41 | Cardiology Progress Note ---
Subjective Date Seen by Provider: Aug 05, 2019 Time Seen by Provider: 11:39 Subjective/Events-last exam Patient is sitting in a chair, seen today feeling significantly better. Denied any chest pain. No palpitation. Still having pain at her knee Review of Systems General: No Chills, No Night Sweats, No Fatigue, No Malaise, No Appetite, No Other HEENT: No Head Aches, No Visual Changes, No Eye Pain, No Ear Pain, No Dysphasia, No Sinus Congestion, No Post Nasal Drip, No Sore Throat, No Other Pulmonary: No Dyspnea, No Cough, No Pleuritic Chest Pain, No Other Cardiovascular: No: Chest Pain, Palpitations, Orthopnea, Paroxysmal Noc. Dyspnea, Edema, Lt Headedness, Other Objective-Cardiology Exam Last Set of Vital Signs Vital Signs 08/04/19 08/04/19 08/05/19 08/05/19 03:04 20:30 08:00 09:00 Temp 36.6 Pulse 93 Resp 18 B/P (MAP) 121/73 (89) Pulse Ox 96 O2 Delivery Room Air O2 Flow Rate 1.50 FiO2 28 Capillary Refill : Less Than 3 SecondsLess Than 3 Seconds I&O Intake and Output 08/05/19 00:00 Intake Total 1640 ml Output Total 975 ml Balance 665 ml Intake Oral 1640 ml Output Urine Total 975 ml # Voids 7 # Bowel Movements 2 General: Alert, Oriented X3, Cooperative HEENT: Atraumatic, PERRLA Neck: Supple, No JVD, No Thyromegaly Lungs: Clear to Auscultation, Normal Air Movement Heart: Regular Rate, Normal S1, Normal S2, No Murmurs Abdomen: Normal Bowel Sounds, Soft, No Tenderness, No Hepatosplenomegaly, No Masses Extremities: No Clubbing, No Cyanosis, No Edema, Normal Pulses, No Tenderness/Swelling Skin: No Rashes, No Breakdown, No Significant Lesion Neuro: Normal Gait, Normal Speech, Strength at 5/5 X4 Ext, Normal Tone, Sen sation Intact Psych/Mental Status: Mental Status NL, Mood NL Results Lab Laboratory Tests 08/05/19 06:07 A/P-Cardiology Admission Diagnosis Chest pain Hypertension Hyperlipidemia Antiphospholipid antibody Assessment/Plan Chest pain nonspecific etiology, reported improvement, EKG did not show any acute abnormality, mild troponin elevation. Troponin is trending down. Continue to monitor Cardiac catheterization was done in December 2018 showing mild coronary artery disease. Patient has allergy to multiple metals including a stent metals. Status post knee replacement surgery. Recovering slowly. History of antiphospholipid antibody syndrome, hypercoagulable state, history of DVT, renal infarction, history of peripheral vascular disease, continue on Coumadin, use heparin bridging at this time until INR is therapeutic again Hypertension, monitor blood pressure Hyperlipidemia, monitor lipids History of carotid stenosis with tortuosity. Last ultrasound done in December 2018 History of renal artery stenosis. Continue to monitor next Hypothyroidism followed and managed by primary care physician Diabetes mellitus, followed and managed by primary care physician Gastroesophageal reflux disease History of ankle surgery. Okay for discharge and follow-up as an outpatient Clinical Quality Measures DVT/VTE Risk/Contraindication: Risk Factor Score Per Nursin RFS Level Per Nursing on Admit: 4+=Very High DYLAN SAHU MD Aug 05, 2019 11:41
[2019-08-05 11:57] VITALS: BP 121/73
--- NOTE | 2019-08-05 11:57 | NUR ---
JOHNATHAN TEMPLETON demonstrates understanding of discharge instructions and accurately returns instructions upon questioning. Copy of Post-Discharge Instructions and Medication Discharge Instructions given to PT. JOHNATHAN TEMPLETON is able to manage continuing needs after discharge. Patients belongings returned to PT. Skin dry and intact; no breakdown noted. Patient discharged from 416-1 on at 1157 . JOHNATHAN TEMPLETON left floor via WC, accompanied by STAFF.
== END 2019-08-05 11:57 | DRG 470 ==
LOC: 4TH 06:01 → SURG 06:02 → 4TH 10:45
PROVIDERS: ADMIT Orthopaedic Surgery; ATTEND Orthopaedic Surgery
PROC: 0SRD0J9 Replacement of Left Knee Joint with Synthetic Substitute, Cemented, Open Approach (ICD-10-PCS; principal; 2019-08-02 07:49)
DX: M17.12 Unilateral primary osteoarthritis, left knee (principal); I10 Essential (primary) hypertension; D68.61 Antiphospholipid syndrome; I70.1 Atherosclerosis of renal artery; K21.9 Gastro-esophageal reflux disease without esophagitis; E78.00 Pure hypercholesterolemia, unspecified; E11.9 Type 2 diabetes mellitus without complications; E03.9 Hypothyroidism, unspecified; I25.10 Atherosclerotic heart disease of native coronary artery without angina pectoris; G43.909 Migraine, unspecified, not intractable, without status migrainosus; F41.9 Anxiety disorder, unspecified; F32.9 Major depressive disorder, single episode, unspecified; G47.33 Obstructive sleep apnea (adult) (pediatric); T78.49XA Other allergy, initial encounter; Z79.01 Long term (current) use of anticoagulants; Z87.891 Personal history of nicotine dependence; L93.0 Discoid lupus erythematosus; B02.9 Zoster without complications; M79.7 Fibromyalgia; R07.9 Chest pain, unspecified; J30.2 Other seasonal allergic rhinitis; Z86.718 Personal history of other venous thrombosis and embolism; Z79.84 Long term (current) use of oral hypoglycemic drugs
CPT/HCPCS: 36415; 73560; 80053; 82553; 82565; 82962; 83874; 84484; 85014; 85018; 85025; 85027; 85610; 86850; 86900; 86901; 93005; 94664; 94760

== ENCOUNTER → 2019-08-08 | Outpatient (CLI) | payer MEDICARE, OTHER ==
--- NOTE | 2019-08-08 16:20 | Diagnostic Imaging Report ---
PROCEDURE: US left lower extremity venous. TECHNIQUE: Multiple real-time grayscale images were obtained over the left lower extremity in various projections. Additional duplex Doppler and color Doppler images were also obtained. INDICATION: Recent left knee replacement surgery, now complaining of swelling and pain to the left lower extremity. FINDINGS: There is no evidence of left lower extremity DVT. Left lower extremity deep venous system shows normal compressibility with normal response to augmentation and Valsalva. No fluid collection or mass is seen. IMPRESSION: No evidence of left lower extremity DVT. Dictated by: Dictated on workstation # [id number]
== END ==
LOC: RAD 15:36
PROVIDERS: ATTEND Orthopaedic Surgery
DX: I82.402 Acute embolism and thrombosis of unspecified deep veins of left lower extremity (principal); Z98.890 Other specified postprocedural states; Z96.651 Presence of right artificial knee joint

== ENCOUNTER 2019-10-05 05:53 | Outpatient (CLI) | payer MEDICARE, OTHER ==
[~2019-10-05] VITALS: Ht 157.5 cm; Wt 81.8 kg
== END 2019-10-05 10:26 ==
LOC: PREOP 05:53
PROVIDERS: ATTEND Specialist
DX: Z01.818 Encounter for other preprocedural examination (principal); H26.499 Other secondary cataract, unspecified eye

== ENCOUNTER 2019-10-06 06:33 | Day surgery (SDC) | payer MEDICARE, OTHER ==
[~2019-10-06] VITALS: Ht 154.9 cm; Wt 81.8 kg
[2019-10-06 06:45] VITALS: BP 135/75
[2019-10-06] MEDS: TETRACAINE 0.5% OPHTH SOLN 4 ML BTL (SINGLE DOSE ONLY) OU PRN ×3 (07:00→07:06)
[2019-10-06] MEDS ORDERED: TROPICAMIDE 1% OPH SOLN (MYDRIACYL) 15 ML BTL OU PRN (07:00)
[2019-10-06] MEDS ORDERED: PHENYLEPHRINE 10% OPHTH (NEO-SYN) 5 ML BTL OU PRN (07:00)
--- OUTSIDE RECORDS SUMMARY | 2019-10-06 07:03 | XMS REPORT | Continuity of Care Document ---
Demographics Preferred Language Unknown Marital Status Unknown Denominational Affiliation Unknown Race Unknown Ethnic Group Unknown Author Organization Unknown Address Unknown Phone Unavailable Allergies Active Description Code Type Severity Reaction Onset Reported/Identified Relationship to Patient Clinical Status Yes PERCOCET PERCOCET MODERATE Yes SULFA (SULFONAMIDE ANTIBIOTICS) SULFA (SULFONAMIDE A UNKNOWN Yes PERCOCET MODERATE MODERATE Yes PERCOCET MODERATE OTHER Yes SULFA (SULFONAMIDE ANTIBIOTICS) UNKNOWN OTHER Yes SULFA (SULFONAMIDE ANTIBIOTICS) UNKNOWN UNKNOWN Yes METAL METAL Moderate HIVES 09/21/2016 Yes acetaminophen [id number] Cachorro g Allergy Moderate "FEELS BAD" 08/02/2019 Yes chocolate flavor [id number] Drug Allergy Moderate MIGRAINES 08/02/2019 Yes oxycodone [id number] Drug Allergy Moderate "FEELS BAD" 08/02/2019 Yes Sulfa (Sulfonamide Antibiotics) [id number] Drug Allergy Moderate GI UPSET 08/02/2019 Yes chromium [id number] Drug Allergy Unknown Hives 08/02/2019 Yes clonazepam [id number] Drug Allerg y Unknown depression 08/02/2019 Yes gold Au 198 [id number] Drug Aller gy Unknown Hives 08/02/2019 Yes sodium thiosulfate [id number] Drug Allergy Unknown Hives 08/02/2019 Yes Grwbyvq-Mjt-Yax Reductase Inhibitor [id number] Drug Allergy Unknown leg cramps 08/02/2019 Yes sulfacetamide [id number] Cachorro g Allergy Unknown Nausea 08/02/2019 Yes titanium [id number] Drug Allergy Unknown Hives 08/02/2019 Medications Medication Packaging Start Date St op Date Route Dosage Sig PROMETHAZINE VIAL INJ 25 MG/CC (PHENERGAN VIAL) MG 02/17/2016 02/17/2016 PRN ONCE MEPERIDINE SYRINGE INJ 50 MG /CC (DEMEROL SYRINGE) MG 02/17/2016 02/17/2016 PRN ONCE HYDROXYZINE TAB 25 MG (ATARAX) MG 02/29/2016 02/29/2016 PRN ONCE DEXAMETHASONE VIAL INJ 10 MG/CC (DECADRON VIAL) MG 02/29/2016 02/29/2016 ONCE&1201 FEXOFENADINE TAB 180 MG (DOMINIQUE) MG 03/01/2016 03/07/2016 Daily&0900 FAMOTIDINE VIAL INJ 20 MG/2CC (PEPCID VIAL ) MG 03/04/2016 03/04/2016 ONCE&0927 DEXAMETHASONE VIAL INJ 10 MG/CC (DECADRON VIAL) MG 03/04/2016 03/04/2016 ONCE&0927 DIPHENHYDRAMINE VIAL INJ 50 MG/CC (BENADRYL VIAL) MG 03/04/2016 03/07/2016 PRN Q6H ASA 81MG CHEWABLE TAB 81 MG (BABY ASPIRIN) MG 07/22/2016 07/22/2016 ONCE&0902 NITROSTAT TAB 0.4 MG (NITROQUICK) MG 07/22/2016 07/22/2016 ONCE&0925 ONDANSETRON VIAL INJ 4 MG/2CC (ZOFRAN 2CC VIAL) MG 03/10/2017 03/10/2017 PRN ONCE Hydromorphone inj 2mg/cc vial (Dilaudid) MG 03/10/2017 03/10/2017 PRN ONCE AMPICILLIN/SULBACTAM VIAL INJ 1.5 GM (UNAS YN) GM 03/10/2017 03/10/2017 ONCE&1627 ONDANSETRON VIAL INJ 4 MG/2CC (ZOFRAN 2CC VIAL) MG 03/10/2017 03/10/2017 ONCE&1651 NORMAL SALINE 1000CC IV BAG INJ 0.9 % (NS 1000CC IV BAG) ml 03/10/2017 03/25/2017 CONTINUOUSEVERY 0 Hour ONDANSETRON VIAL INJ 4 MG/2CC (ZOFRAN 2CC VIAL) MG 03/10/2017 03/17/2017 PRN Q4H Hydromorphone inj 2mg/cc vial (Dilaudid) MG 03/10/2017 03/17/2017 PRN Q4H WARFARIN TAB 5 MG (COUMADIN) Dose(s) 03/10/2017 03/16/2017 QPM&1800 PROMETHAZINE VIAL INJ 25 MG/CC (PHENERGAN VIAL) MG 03/10/2017 03/20/2017 PRN Q4H AMPICILLIN/SULBACTAM VIAL INJ 1.5 GM (UNAS YN) GM 03/11/2017 03/20/2017 Q8H&0000,0800,1600 LISINOPRIL TAB 40 MG (ZESTRIL) MG 03/11/2017 03/11/2017 ONCE&0800 VENLAFAXINE XR CAP 75 MG (EFFEXOR XR) Dose(s) 03/11/2017 03/17/2017 Daily&0900 LISINOPRIL TAB 40 MG (ZESTRIL) Dose(s) 03/11/2017 03/24/2017 Daily&0900 LISINOPRIL TAB 10 MG (ZESTRIL) Dose(s) 03/11/2017 03/17/2017 Daily&0900 METFORMIN TAB 500 MG (GLUCOPHAGE) Dose(s) 03/11/2017 03/17/2017 Daily&0900 FEXOFENADINE TAB 180 MG (DOMINIQUE) Dose(s) 03/11/2017 03/17/2017 Daily&0900 LEVOTHYROXINE TAB 150 MCG (SYNTHROID) Dose(s) 03/11/2017 03/17/2017 Daily&0900 PANTOPAZOLE VIAL INJ 40 MG (PROTONIX IV) MG 03/11/2017 03/20/2017 Daily&0900 SORBITAL/DRY MOUTH LIQ 0 (S ALIVA SUB/MOUTH KOTE) johanny 03/11/2017 03/18/2017 PRN Q4H ENOXAPARIN SYRINGE INJ 80 MG (LOVENOX SYRI NGE) MG 03/11/2017 03/20/2017 Daily&1600 AMPICILLIN/SULBACTAM VIAL INJ 1.5 GM (UNAS YN) GM 03/11/2017 03/21/2017 Q8H&0100,0900,1700 WARFARIN TAB 2 MG (COUMADIN) MG 03/11/2017 03/24/2017 QPM&1800 Problems Date Dx Coded Attending Type Code Diagnosis Diagnosed By 01/28/1429 RADHA RICHMOND, BEN Lora Ot M17.12 UNILATERAL PRIMARY OSTEOARTHRITIS, LEFT 01/28/1429 RADHA RICHMOND, BEN Lora Ot Z01.810 ENCOUNTER FOR PREPROCEDURAL CARDIOVASCUL 01/28/1429 RADHA RICHMOND, BEN Lora Ot Z01.811 ENCOUNTER FOR PREPROCEDURAL RESPIRATORY 01/28/1429 BEN GARCIA MD, Ot Z01.812 ENCOUNTER FOR PREPROCEDURAL LABORATORY E 01/28/1429 RADHA RICHMOND, BEN Lora Ot Z11.59 ENCOUNTER FOR SCREENING FOR OTHER VIRAL 01/22/2016 GLADIS RICHMOND, NEELAM Goodwin Ot Z01.818 ENCOUNTER FOR OTHER PREPROCEDURAL EXAMIN 01/22/2016 NEELAM GRIFFITH MD Ot Z12.11 ENCOUNTER FOR SCREENING FOR MALIGNANT NE 01/24/2016 NEELAM GRIFFITH MD Ot Z01.818 ENCOUNTER FOR OTHER PREPROCEDURAL EXAMIN 01/24/2016 NEELAM GRIFFITH MD Ot Z12.11 ENCOUNTER FOR SCREENING FOR MALIGNANT NE 01/27/2016 NEELAM GRIFFITH MD Ot K57.90 DVRTCLOS OF INTEST, PART UNSP, W/O PERF 01/27/2016 NEELAM GRIFFITH MD Ot Z12.11 ENCOUNTER FOR SCREENING FOR MALIGNANT NE 01/28/2016 NEELAM GRIFFITH MD Ot K57.90 DVRTCLOS OF INTEST, PART UNSP, W/O PERF 01/28/2016 NEELAM GRIFFITH MD Ot Z12.11 ENCOUNTER FOR SCREENING FOR MALIGNANT NE 02/13/2016 NEELAM GRIFFITH MD Ot K57.90 DVRTCLOS OF INTEST, PART UNSP, W/O PERF 02/13/2016 NEELAM GRIFFITH MD Ot Z12.11 ENCOUNTER FOR SCREENING FOR MALIGNANT NE 02/17/2016 Abad Barroso 823.01 CLOSED FRACTURE OF UPPER END OF FIBULA 02/17/2016 Abda Barroso S82.831A OTHER FRACTURE OF UPPER AND LOWER END OF RIGHT FIBULA, INITIAL ENCOUNTER FOR CLOSED FRACTURE 02/19/2016 INES SANTILLAN S82.831D OTH FX UPR T LOW END R FIBULA, SUBS FOR CLOS FX W ROUTN HEAL 02/19/2016 INES SANTILLAN V54.16 AFTERCARE FOR HEALING TRAUMATIC FRACTURE OF LOWER LEG 02/22/2016 ROSA MARIA BERMUDEZ DO S Ot D68.61 ANTIPHOSPHOLIPID SYNDROME 02/22/2016 ROSA MARIA BERMUDEZ DO S Ot E03.9 HYPOTHYROIDISM, UNSPECIFIED 02/22/2016 ROSA MARIA BERMUDEZ DO S Ot E11.9 TYPE 2 DIABETES MELLITUS WITHOUT COMPLIC 02/22/2016 ROSA MARIA BERMUDEZ DO S Ot E78.00 PURE HYPERCHOLESTEROLEMIA, UNSPECIFIED 02/22/2016 ROSA MARIA BERMUDEZ DO Ot F32.9 MAJOR DEPRESSIVE DISORDER, SINGLE EPISOD 02/22/2016 ROSA MARIA BERMUDEZ DO Ot F41.9 ANXIETY DISORDER, UNSPECIFIED 02/22/2016 ROSA MARIA BERMUDEZ DO Ot G47.30 SLEEP APNEA, UNSPECIFIED 02/22/2016 ROSA MARIA BERMUDEZ DO Ot I10 ESSENTIAL (PRIMARY) HYPERTENSION 02/22/2016 ROSA MARIA BERMUDEZ DO Ot K21.9 GASTRO-ESOPHAGEAL REFLUX DISEASE WITHOUT 02/22/2016 ROSA MARIA BERMUDEZ DO Ot M25.371 OTHER INSTABILITY, RIGHT ANKLE 02/22/2016 ROSA MARIA BERMUDEZ DO Ot M32.9 SYSTEMIC LUPUS ERYTHEMATOSUS, UNSPECIFIE 02/22/2016 ROSA MARIA BERMUDEZ DO Ot M79.7 FIBROMYALGIA 02/22/2016 ROSA MARIA BERMUDEZ DO Ot R29.6 REPEATED FALLS 02/22/2016 ROSA MARIA BERMUDEZ DO Ot S82.431A DISPLACED OBLIQUE FRACTURE OF SHAFT OF R 02/22/2016 ROSA MARIA BERMUDEZ DO Ot W18.09XA STRIKING AGAINST OTH OBJECT W SUBSEQUENT 02/22/2016 ROSA MARIA BERMUDEZ DO Ot Y92.[address] IN [facility] NON-INSTITUT (PRIVATE) 02/22/2016 ROSA MARIA BERMUDEZ DO Ot Z79.01 PENITENTIARY (CURRENT) USE OF ANTICOAGULANT 02/22/2016 ROSA MARIA BERMUDEZ DO Ot Z79.84 DEMOLITION SPECIALIST (CURRENT) USE OF ORAL HYPOGLYC 02/22/2016 ROSA MARIA BERMUDEZ DO Ot Z86.718 PERSONAL HISTORY OF OTHER VENOUS THROMBO 02/22/2016 ROSA MARIA BERMUDEZ DO Ot Z87.891 PERSONAL HISTORY OF NICOTINE DEPENDENCE 02/23/2016 ROSA MARIA BERMUDEZ DO Ot D68.61 ANTIPHOSPHOLIPID SYNDROME 02/23/2016 ROSA MARIA BERMUDEZ DO Ot E03.9 HYPOTHYROIDISM, UNSPECIFIED 02/23/2016 ROSA MARIA BERMUDEZ DO Ot E11.9 TYPE 2 DIABETES MELLITUS WITHOUT COMPLIC 02/23/2016 ROSA MARIA BERMUDEZ DO Ot E78.00 PURE HYPERCHOLESTEROLEMIA, UNSPECIFIED 02/23/2016 ROSA MARIA BERMUDEZ DO Ot F32.9 MAJOR DEPRESSIVE DISORDER, SINGLE EPISOD 02/23/2016 ROSA MARIA BERMUDEZ DO Ot F41.9 ANXIETY DISORDER, UNSPECIFIED 02/23/2016 ROSA MARIA BERMUDEZ DO Ot G47.30 SLEEP APNEA, UNSPECIFIED 02/23/2016 ROSA MARIA BERMUDEZ DO Ot I10 ESSENTIAL (PRIMARY) HYPERTENSION 02/23/2016 ROSA MARIA BERMUDEZ DO Ot K21.9 GASTRO-ESOPHAGEAL REFLUX DISEASE WITHOUT 02/23/2016 ROSA MARIA BERMUDEZ DO Ot M25.371 OTHER INSTABILITY, RIGHT ANKLE 02/23/2016 ROSA MARIA BERMUDEZ DO Ot M32.9 SYSTEMIC LUPUS ERYTHEMATOSUS, UNSPECIFIE 02/23/2016 ROSA MARIA BERMUDEZ DO Ot M79.7 FIBROMYALGIA 02/23/2016 ROSA MARIA BERMUDEZ DO Ot R29.6 REPEATED FALLS 02/23/2016 ROSA MARIA BERMUDEZ DO Ot S82.431A DISPLACED OBLIQUE FRACTURE OF SHAFT OF R 02/23/2016 ROSA MARIA BERMUDEZ DO Ot W18.09XA STRIKING AGAINST OTH OBJECT W SUBSEQUENT 02/23/2016 ROSA MARIA BERMUDEZ DO Ot Y92.[address] IN [facility] NON-INSTITUT (PRIVATE) 02/23/2016 ROSA MARIA BERMUDEZ DO Ot Z79.01 DEMOLITION SPECIALIST (CURRENT) USE OF ANTICOAGULANT 02/23/2016 ROSA MARIA BERMUDEZ DO Ot Z79.84 PENITENTIARY (CURRENT) USE OF ORAL HYPOGLYC 02/23/2016 ROSA MARIA BERMUDEZ DO Ot Z86.718 PERSONAL HISTORY OF OTHER VENOUS THROMBO 02/23/2016 ROSA MARIA BERMUDEZ DO Ot Z87.891 PERSONAL HISTORY OF NICOTINE DEPENDENCE 02/24/2016 ROSA MARIA BERMUDEZ DO Ot D68.61 ANTIPHOSPHOLIPID SYNDROME 02/24/2016 ROSA MARIA BERMUDEZ DO Ot E03.9 HYPOTHYROIDISM, UNSPECIFIED 02/24/2016 ROSA MARIA BERMUDEZ DO Ot E11.9 TYPE 2 DIABETES MELLITUS WITHOUT COMPLIC 02/24/2016 ROSA MARIA BERMUDEZ DO Ot E78.00 PURE HYPERCHOLESTEROLEMIA, UNSPECIFIED 02/24/2016 ROSA MARIA BERMUDEZ DO Ot F32.9 MAJOR DEPRESSIVE DISORDER, SINGLE EPISOD 02/24/2016 ROSA MARIA BERMUDEZ DO S Ot F41.9 ANXIETY DISORDER, UNSPECIFIED 02/24/2016 ROSA MARIA BERMUDEZ DO S Ot G47.30 SLEEP APNEA, UNSPECIFIED 02/24/2016 ROSA MARIA BERMUDEZ DO S Ot I10 ESSENTIAL (PRIMARY) HYPERTENSION 02/24/2016 ROSA MARIA BERMUDEZ DO S Ot K21.9 GASTRO-ESOPHAGEAL REFLUX DISEASE WITHOUT 02/24/2016 ROSA MARIA BERMUDEZ DO S Ot M25.371 OTHER INSTABILITY, RIGHT ANKLE 02/24/2016 ROSA MARIA BERMUDEZ DO S Ot M32.9 SYSTEMIC LUPUS ERYTHEMATOSUS, UNSPECIFIE 02/24/2016 ROSA MARIA BERMUDEZ DO Ot M79.7 FIBROMYALGIA 02/24/2016 ROSA MARIA BERMUDEZ DO S Ot R29.6 REPEATED FALLS 02/24/2016 ROSA MARIA BERMUDEZ DO Ot S82.431A DISPLACED OBLIQUE FRACTURE OF SHAFT OF R 02/24/2016 ROSA MARIA BERMUDEZ DO S Ot W18.09XA STRIKING AGAINST OTH OBJECT W SUBSEQUENT 02/24/2016 ROSA MARIA BERMUDEZ DO S Ot Y92.[address] IN [facility] NON-INSTITUT (PRIVATE) 02/24/2016 ROSA MARIA BERMUDEZ DO Ot Z79.01 DEMOLITION SPECIALIST (CURRENT) USE OF ANTICOAGULANT 02/24/2016 ROSA MARIA BERMUDEZ DO S Ot Z79.84 DEMOLITION SPECIALIST (CURRENT) USE OF ORAL HYPOGLYC 02/24/2016 ROSA MARIA BERMUDEZ DO Ot Z86.718 PERSONAL HISTORY OF OTHER VENOUS THROMBO 02/24/2016 ROSA MARIA BERMUDEZ DO S Ot Z87.891 PERSONAL HISTORY OF NICOTINE DEPENDENCE 02/24/2016 ROSA MARIA BERMUDEZ DO S Ot D64.9 ANEMIA, UNSPECIFIED 02/24/2016 ROSA MARIA BERMUDEZ DO S Ot D68.61 ANTIPHOSPHOLIPID SYNDROME 02/24/2016 ROSA MARIA BERMUDEZ DO S Ot E03.9 HYPOTHYROIDISM, UNSPECIFIED 02/24/2016 ROSA MARIA BERMUDEZ DO S Ot E11.9 TYPE 2 DIABETES MELLITUS WITHOUT COMPLIC 02/24/2016 ROSA MARIA BERMUDEZ DO S Ot E78.00 PURE HYPERCHOLESTEROLEMIA, UNSPECIFIED 02/24/2016 DION BERMUDEZ DOLINE S Ot F32.9 MAJOR DEPRESSIVE DISORDER, SINGLE EPISOD 02/24/2016 DION BERMUDEZ DOLINE S Ot F41.9 ANXIETY DISORDER, UNSPECIFIED 02/24/2016 DION BERMUDEZ DOLINE S Ot G47.30 SLEEP APNEA, UNSPECIFIED 02/24/2016 DION BERMUDEZ DOLINE S Ot I10 ESSENTIAL (PRIMARY) HYPERTENSION 02/24/2016 DION BERMUDEZ DOLINE S Ot K21.9 GASTRO-ESOPHAGEAL REFLUX DISEASE WITHOUT 02/24/2016 DION BERMUDEZ DOLINE S Ot M25.371 OTHER INSTABILITY, RIGHT ANKLE 02/24/2016 DION BERMUDEZ DOLINE S Ot M32.9 SYSTEMIC LUPUS ERYTHEMATOSUS, UNSPECIFIE 02/24/2016 DION BERMUDEZ DOLINE S Ot M79.7 FIBROMYALGIA 02/24/2016 DION BERMUDEZ DOLINE S Ot R29.6 REPEATED FALLS 02/24/2016 DION BERMUDEZ DOLINE S Ot S82.431A DISPLACED OBLIQUE FRACTURE OF SHAFT OF R 02/24/2016 DION BERMUDEZ DOLINE S Ot W18.09XA STRIKING AGAINST OTH OBJECT W SUBSEQUENT 02/24/2016 ROSA MARIA BERMUDEZ DO S Ot Y92.[address] IN [facility] NON-INSTITUT (PRIVATE) 02/24/2016 ROSA MARIA BERMUDEZ DO S Ot Z79.01 DEMOLITION SPECIALIST (CURRENT) USE OF ANTICOAGULANT 02/24/2016 DION BERMUDEZ DOLINE S Ot Z79.84 DEMOLITION SPECIALIST (CURRENT) USE OF ORAL HYPOGLYC 02/24/2016 DION BERMUDEZ DOLINE S Ot Z86.718 PERSONAL HISTORY OF OTHER VENOUS THROMBO 02/24/2016 DION BERMUDEZ DOLINE S Ot Z87.891 PERSONAL HISTORY OF NICOTINE DEPENDENCE 02/29/2016 Abad Barroso 244.9 02/29/2016 Abad Barroso 250.00 DIABETES MELLITUS WITHOUT MENTION OF COMPLICATION, TYPE II OR UNSPECIFIED TYPE, NOT STATED UNCONTROLLED 02/29/2016 Abad Barroso 272.4 02/29/2016 Abad Barroso 401.0 MALIGNANT ESSENTIAL HYPERTENSION 02/29/2016 Abad Barroso 786.2 02/29/2016 Abad Barroso E03.9 HYPOTHYROIDISM, UNSPECIFIED 02/29/2016 Abad Barroso E11.9 TYPE 2 DIABETES MELLITUS WITHOUT COMPLICATIONS 02/29/2016 Abad Barroso E78.5 HYPERLIPIDEMIA, UNSPECIFIED 02/29/2016 Abad Barroso I10 ESSENTIAL (PRIMARY) HYPERTENSION 02/29/2016 Abad Barroso R05 COUGH 02/29/2016 Abad Barroso V58.61 LONG- TERM (CURRENT) USE OF ANTICOAGULANTS 02/29/2016 Abad Barroso Z79.01 PENITENTIARY (CURRENT) USE OF ANTICOAGULANTS 03/04/2016 Helen Erwin W 682.3 CELLULITIS AND ABSCESS OF UPPER ARM AND FOREARM 03/04/2016 Nas Erwinya A 708.0 ALLERGIC URTICARIA 03/04/2016 Helen Erwin W L03.113 CELLULITIS OF RIGHT UPPER LIMB 03/04/2016 Helen Erwin A L50.0 ALLERGIC URTICARIA 03/07/2016 Abad Barroso 782.1 RASH AND OTHER NONSPECIFIC SKIN ERUPTION 03/07/2016 Abad Barroso R21 RASH AND OTHER NONSPECIFIC SKIN ERUPTION 07/22/2016 Pratik Rider 786.5 CHEST PAIN 07/22/2016 Pratik Rider R07.89 OTHER CHEST PAIN 09/21/2016 BLANCHO DPINES Goodwin Ot T84.84XA PAIN DUE TO INTERNAL ORTHOPEDIC PROSTH D 09/21/2016 BLANCHO DPINES Goodwin Ot Z01.818 ENCOUNTER FOR OTHER PREPROCEDURAL EXAMIN 09/21/2016 BLANCHO DPINES Goodwin Ot Z11.2 ENCOUNTER FOR SCREENING FOR OTHER BACTER 09/23/2016 HIRONCHO DPINES Goodwin Ot E11.9 TYPE 2 DIABETES MELLITUS WITHOUT COMPLIC 09/23/2016 HIRONCHO DPINES Goodwin Ot E78.5 HYPERLIPIDEMIA, UNSPECIFIED 09/23/2016 BLANCHO DPINES Goodwin Ot G47.33 OBSTRUCTIVE SLEEP APNEA (ADULT) (PEDIATR 09/23/2016 BLANCHO DPINES Goodwin Ot I1 0 ESSENTIAL (PRIMARY) HYPERTENSION 09/23/2016 BLANCHO DPINES Goodwin Ot K21.9 GASTRO-ESOPHAGEAL REFLUX DISEASE WITHOUT 09/23/2016 BLANCHO DPM, INES Fletcher Ot M79.7 FIBROMYALGIA 09/23/2016 BLANCHO DPM, INES Fletcher Ot T84.84XA PAIN DUE TO INTERNAL ORTHOPEDIC PROSTH D 09/23/2016 BLANCHO DPM, INES Justine Ot Z79.01 PENITENTIARY (CURRENT) USE OF ANTICOAGULANT 09/23/2016 BLANCHO DPM, INES Fletcher Ot Z79.899 OTHER PENITENTIARY (CURRENT) DRUG THERAPY 09/23/2016 BLANCHO MELISSAM, INES Fletcher Ot Z86.718 PERSONAL HISTORY OF OTHER VENOUS THROMBO 09/23/2016 INES SANTILLAN 718.87 OTHER JOINT DERANGEMENT, NOT ELSEWHERE CLASSIFIED, INVOLVING ANKLE AND FOOT 09/23/2016 INES SANTILLAN M25.371 OTHER INSTABILITY, RIGHT ANKLE 09/25/2016 HIRONCHO DPMINES Ot E11.9 TYPE 2 DIABETES MELLITUS WITHOUT COMPLIC 09/25/2016 BLANCHO DPMINES Ot E78.5 HYPERLIPIDEMIA, UNSPECIFIED 09/25/2016 BLANCHO DPM, INES Fletcher Ot G47.33 OBSTRUCTIVE SLEEP APNEA (ADULT) (PEDIATR 09/25/2016 BLANCHO DPM, INES Fletcher Ot I1 0 ESSENTIAL (PRIMARY) HYPERTENSION 09/25/2016 BLANCHO DPM, INES Fletcher Ot K21.9 GASTRO-ESOPHAGEAL REFLUX DISEASE WITHOUT 09/25/2016 BLANCHO DPM, INES Fletcher Ot M79.7 FIBROMYALGIA 09/25/2016 BLANCHO DPM, INES Fletcher Ot T84.84XA PAIN DUE TO INTERNAL ORTHOPEDIC PROSTH D 09/25/2016 BLANCHO MELISSAM, INES Fletcher Ot Z79.01 PENITENTIARY (CURRENT) USE OF ANTICOAGULANT 09/25/2016 BLANCHO DPM, INES Fletcher Ot Z79.899 OTHER PENITENTIARY (CURRENT) DRUG THERAPY 09/25/2016 BLANCHO DPM, INES Justine Ot Z86.718 PERSONAL HISTORY OF OTHER VENOUS THROMBO 10/05/2016 BLANCHO DPMINES Ot E11.9 TYPE 2 DIABETES MELLITUS WITHOUT COMPLIC 10/05/2016 HIRONCHO DPM, INES Fletcher Ot E78.5 HYPERLIPIDEMIA, UNSPECIFIED 10/05/2016 BLANCHO DPM, INES Fletcher Ot G47.33 OBSTRUCTIVE SLEEP APNEA (ADULT) (PEDIATR 10/05/2016 BLANCHO DPMINES Ot I1 0 ESSENTIAL (PRIMARY) HYPERTENSION 10/05/2016 LINDAHO DPBuddy INES Fletcher Ot K21.9 GASTRO-ESOPHAGEAL REFLUX DISEASE WITHOUT 10/05/2016 LINDAHO DPBuddy INES Fletcher Ot M79.7 FIBROMYALGIA 10/05/2016 LINDAHO DPBuddy INES Fletcher Ot T84.84XA PAIN DUE TO INTERNAL ORTHOPEDIC PROSTH D 10/05/2016 LINDAHO DPBuddy INES Fletcher Ot Z79.01 DEMOLITION SPECIALIST (CURRENT) USE OF ANTICOAGULANT 10/05/2016 LINDAHO DPBuddy INES Fletcher Ot Z79.899 OTHER DEMOLITION SPECIALIST (CURRENT) DRUG THERAPY 10/05/2016 LINDAHO DPBuddy INES Fletcher Ot Z86.718 PERSONAL HISTORY OF OTHER VENOUS THROMBO 10/15/2016 DYLAN SAHU MD Ot D68. 61 ANTIPHOSPHOLIPID SYNDROME 10/15/2016 DYLAN SAHU MD Ot E03. 9 HYPOTHYROIDISM, UNSPECIFIED 10/15/2016 DYLAN SAHU MD Ot E11. 9 TYPE 2 DIABETES MELLITUS WITHOUT COMPLIC 10/15/2016 DYLAN SAHU MD Ot E66. 9 OBESITY, UNSPECIFIED 10/15/2016 DYLAN SAHU MD Ot E78. 2 MIXED HYPERLIPIDEMIA 10/15/2016 DYLAN SAHU MD Ot R07. 89 OTHER CHEST PAIN 10/20/2016 DYLAN SAHU MD Ot D68. 61 ANTIPHOSPHOLIPID SYNDROME 10/20/2016 DYLAN SAHU MD Ot E03. 9 HYPOTHYROIDISM, UNSPECIFIED 10/20/2016 DYLAN SAHU MD Ot E11. 9 TYPE 2 DIABETES MELLITUS WITHOUT COMPLIC 10/20/2016 DYLAN SAHU MD Ot E66. 9 OBESITY, UNSPECIFIED 10/20/2016 DYLAN SAHU MD Ot E78. 2 MIXED HYPERLIPIDEMIA 10/20/2016 DYLAN SAHU MD Ot R07. 89 OTHER CHEST PAIN 11/03/2016 DYLAN SAHU MD Ot D68. 61 ANTIPHOSPHOLIPID SYNDROME 11/03/2016 DYLAN SAHU MD Ot E03. 9 HYPOTHYROIDISM, UNSPECIFIED 11/03/2016 DYLAN SAHU MD Ot E11. 9 TYPE 2 DIABETES MELLITUS WITHOUT COMPLIC 11/03/2016 DYLAN SAHU MD Ot E66. 9 OBESITY, UNSPECIFIED 11/03/2016 DYLAN SAHU MD Ot E78. 2 MIXED HYPERLIPIDEMIA 11/03/2016 DYLAN SAHU MD J Ot R07. 89 OTHER CHEST PAIN 11/12/2016 DYLAN SAHU MD Ot D68. 61 ANTIPHOSPHOLIPID SYNDROME 11/12/2016 DYLAN SAHU MD Ot E03. 9 HYPOTHYROIDISM, UNSPECIFIED 11/12/2016 DYLAN SAHU MD Ot E11. 9 TYPE 2 DIABETES MELLITUS WITHOUT COMPLIC 11/12/2016 DYLAN SAHU MD Ot E66. 9 OBESITY, UNSPECIFIED 11/12/2016 DYLAN SAHU MD Ot E78. 2 MIXED HYPERLIPIDEMIA 11/12/2016 DYLAN SAHU MD Ot R07. 89 OTHER CHEST PAIN 03/05/2017 DYLAN SAHU MD Ot D68. 61 ANTIPHOSPHOLIPID SYNDROME 03/05/2017 DYLAN SAHU MD Ot E03. 9 HYPOTHYROIDISM, UNSPECIFIED 03/05/2017 DYLAN SAHU MD Ot E11. 9 TYPE 2 DIABETES MELLITUS WITHOUT COMPLIC 03/05/2017 DYLAN SAHU MD Ot E66. 9 OBESITY, UNSPECIFIED 03/05/2017 DYLAN SAHU MD Ot E78. 2 MIXED HYPERLIPIDEMIA 03/05/2017 DYLAN SAHU MD Ot R07. 89 OTHER CHEST PAIN 03/10/2017 Brown, Eleuterio W 789.02 ABDOMINAL PAIN, LEFT UPPER QUADRANT 03/10/2017 Brown, Eleuterio W R10.12 LEFT UPPER QUADRANT PAIN 03/10/2017 Brown, Eleuterio W 789.02 ABDOMINAL PAIN, LEFT UPPER QUADRANT 03/10/2017 Brown, Eleuterio W R10.12 LEFT UPPER QUADRANT PAIN 03/10/2017 Brown, Eleuterio W 789.02 ABDOMINAL PAIN, LEFT UPPER QUADRANT 03/10/2017 Brown, Eleuterio W R10.12 LEFT UPPER QUADRANT PAIN 03/12/2017 Brown, Eleuterio W 244.9 UNSPECIFIED HYPOTHYROIDISM 03/12/2017 Brown, Eleuterio W 250.00 DIABETES MELLITUS WITHOUT MENTION OF COMPLICATION, TYPE II OR UNSPECIFIED TYPE, NOT STATED UNCONTROLLED 03/12/2017 Brown, Eleuterio W 255.8 03/12/2017 Brown, Eleuterio W 272.4 03/12/2017 Brown, Eleuterio W 288.60 03/12/2017 Brown, Eleuterio W 401.0 MALIGNANT ESSENTIAL HYPERTENSION 03/12/2017 Brown, Eleuetrio W 780.60 03/12/2017 Eleuterio Soliz W 787.01 03/12/2017 Eleuterio Soliz A 789.02 ABDOMINAL PAIN, LEFT UPPER QUADRANT 03/12/2017 Eleuterio Soliz W D72.829 ELEVATED WHITE BLOOD CELL COUNT, UNSPECIFIED 03/12/2017 Eleuterio Soliz W E03.9 HYPOTHYROIDISM, UNSPECIFIED 03/12/2017 Eleuterio Soliz W E11.9 TYPE 2 DIABETES MELLITUS WITHOUT COMPLICATIONS 03/12/2017 Eleuterio Soliz W E27.8 OTHER SPECIFIED DISORDERS OF ADRENAL GLAND 03/12/2017 Eleuterio Soliz W E78.5 HYPERLIPIDEMIA, UNSPECIFIED 03/12/2017 Eleuterio Soliz W I10 ESSENTIAL (PRIMARY) HYPERTENSION 03/12/2017 Eleuterio Soliz A R10.12 LEFT UPPER QUADRANT PAIN 03/12/2017 Eleuterio Soliz W R11.2 NAUSEA WITH VOMITING, UNSPECIFIED 03/12/2017 Eleuterio Soliz W R50.9 FEVER, UNSPECIFIED 03/31/2017 ROBIN MYERS R Ot M17. 11 UNILATERAL PRIMARY OSTEOARTHRITIS, RIGHT 03/31/2017 HILL MYERSUA R Ot S83.241A OTH TEAR OF MEDIAL MENISCUS, CURRENT INJ 03/31/2017 HILL MYERSUA R Ot S83.281A OTH TEAR OF LAT MENSC, CURRENT INJURY, R 03/31/2017 ROBIN MYERS R Ot W19.XXXA UNSPECIFIED FALL, INITIAL ENCOUNTER 07/12/2017 DYLAN SAHU MD Ot D68. 61 ANTIPHOSPHOLIPID SYNDROME 07/12/2017 DYLAN SAHU MD Ot E03. 9 HYPOTHYROIDISM, UNSPECIFIED 07/12/2017 DYLAN SAHU MD Ot E11. 9 TYPE 2 DIABETES MELLITUS WITHOUT COMPLIC 07/12/2017 DYLAN SAHU MD Ot E66. 9 OBESITY, UNSPECIFIED 07/12/2017 DYLAN SAHU MD Ot E78. 2 MIXED HYPERLIPIDEMIA 07/12/2017 DYLAN SAHU MD Ot R07. 89 OTHER CHEST PAIN 07/12/2017 DYLAN SAHU MD Ot D68. 61 ANTIPHOSPHOLIPID SYNDROME 07/12/2017 DYLAN SAHU MD Ot E03. 9 HYPOTHYROIDISM, UNSPECIFIED 07/12/2017 DYLAN SAHU MD Ot E11. 9 TYPE 2 DIABETES MELLITUS WITHOUT COMPLIC 07/12/2017 DYLAN SAHU MD Ot E66. 9 OBESITY, UNSPECIFIED 07/12/2017 DYLAN SAHU MD Ot E78. 2 MIXED HYPERLIPIDEMIA 07/12/2017 DYLAN SAHU MD Ot R07. 89 OTHER CHEST PAIN 07/12/2017 BJORN ROBIN OROZCO R Ot M17. 11 UNILATERAL PRIMARY OSTEOARTHRITIS, RIGHT 07/12/2017 SWEET PA, ROBIN R Ot S83.241A OTH TEAR OF MEDIAL MENISCUS, CURRENT INJ 07/12/2017 SWEET PAM, ROBIN R Ot S83.281A OTH TEAR OF LAT MENSC, CURRENT INJURY, R 07/12/2017 BJORN PAMROBIN R Ot W19.XXXA UNSPECIFIED FALL, INITIAL ENCOUNTER 07/14/2017 RACHAEL MCKEON MD Ot E27.9 DISORDER OF ADRENAL GLAND, UNSPECIFIED 07/14/2017 RACHAEL MCKEON MD Ot I70.0 ATHEROSCLEROSIS OF AORTA 07/14/2017 RACHAEL MCKEON MD Ot K57.30 DVRTCLOS OF LG INT W/O PERFORATION OR AB 07/14/2017 RACHAEL MCKEON MD Ot N28.89 OTHER SPECIFIED DISORDERS OF KIDNEY AND 08/03/2017 RACHAEL MCKEON MD Ot E27.9 DISORDER OF ADRENAL GLAND, UNSPECIFIED 08/03/2017 RACHAEL MCKEON MD Ot I70.0 ATHEROSCLEROSIS OF AORTA 08/03/2017 RACHAEL MCKEON MD Ot K57.30 DVRTCLOS OF LG INT W/O PERFORATION OR AB 08/03/2017 RACHAEL MCKEON MD Ot N28.89 OTHER SPECIFIED DISORDERS OF KIDNEY AND 05/24/2018 MARIA INES RICHMOND, KATIUSKA De Ot Z01.818 ENCOUNTER FOR OTHER PREPROCEDURAL EXAMIN 05/24/2018 DYLAN SAHU MD Ot D68. 61 ANTIPHOSPHOLIPID SYNDROME 05/24/2018 DYLAN SAHU MD Ot E03. 9 HYPOTHYROIDISM, UNSPECIFIED 05/24/2018 DYLAN SAHU MD Ot E11. 9 TYPE 2 DIABETES MELLITUS WITHOUT COMPLIC 05/24/2018 DYLAN SAHU MD Ot E66. 9 OBESITY, UNSPECIFIED 05/24/2018 DYLAN SAHU MD Ot E78. 2 MIXED HYPERLIPIDEMIA 05/24/2018 DYLAN SAHU MD Ot R07. 89 OTHER CHEST PAIN 05/24/2018 DYLAN SAHU MD Ot D68. 61 ANTIPHOSPHOLIPID SYNDROME 05/24/2018 DYLAN SAHU MD Ot E03. 9 HYPOTHYROIDISM, UNSPECIFIED 05/24/2018 DYLAN SAHU MD Ot E11. 9 TYPE 2 DIABETES MELLITUS WITHOUT COMPLIC 05/24/2018 DYLAN SAHU MD Ot E66. 9 OBESITY, UNSPECIFIED 05/24/2018 DYLAN SAHU MD Ot E78. 2 MIXED HYPERLIPIDEMIA 05/24/2018 DYLAN SAHU MD Ot R07. 89 OTHER CHEST PAIN 05/24/2018 HILL MYERSUA R Ot M17. 11 UNILATERAL PRIMARY OSTEOARTHRITIS, RIGHT 05/24/2018 HILL MYERSUA R Ot S83.241A OTH TEAR OF MEDIAL MENISCUS, CURRENT INJ 05/24/2018 HILL MYERSUA R Ot S83.281A OTH TEAR OF LAT MENSC, CURRENT INJURY, R 05/24/2018 ROBIN MYERS R Ot W19.XXXA UNSPECIFIED FALL, INITIAL ENCOUNTER 05/24/2018 RACHAEL MCKEON MD Ot E27.9 DISORDER OF ADRENAL GLAND, UNSPECIFIED 05/24/2018 RACHAEL MCKEON MD Ot I70.0 ATHEROSCLEROSIS OF AORTA 05/24/2018 RACHAEL MCKEON MD Ot K57.30 DVRTCLOS OF LG INT W/O PERFORATION OR AB 05/24/2018 RACHAEL MCKEON MD Ot N28.89 OTHER SPECIFIED DISORDERS OF KIDNEY AND 05/25/2018 MARIA INES RICHMOND, KATIUSKA De Ot Z01.818 ENCOUNTER FOR OTHER PREPROCEDURAL EXAMIN 05/25/2018 DYLAN SAHU MD Ot D68. 61 ANTIPHOSPHOLIPID SYNDROME 05/25/2018 DYLAN SAHU MD Ot E03. 9 HYPOTHYROIDISM, UNSPECIFIED 05/25/2018 DYLAN SAHU MD Ot E11. 9 TYPE 2 DIABETES MELLITUS WITHOUT COMPLIC 05/25/2018 DYLAN SAHU MD Ot E66. 9 OBESITY, UNSPECIFIED 05/25/2018 DYLAN SAHU MD Ot E78. 2 MIXED HYPERLIPIDEMIA 05/25/2018 DLYAN SAHU MD Ot R07. 89 OTHER CHEST PAIN 05/25/2018 DYLAN SAHU MD Ot D68. 61 ANTIPHOSPHOLIPID SYNDROME 05/25/2018 DYLAN SAHU MD Ot E03. 9 HYPOTHYROIDISM, UNSPECIFIED 05/25/2018 DYLAN SAHU MD Ot E11. 9 TYPE 2 DIABETES MELLITUS WITHOUT COMPLIC 05/25/2018 DYLAN SAHU MD Ot E66. 9 OBESITY, UNSPECIFIED 05/25/2018 DYLAN SAHU MD Ot E78. 2 MIXED HYPERLIPIDEMIA 05/25/2018 DYLAN SAHU MD Ot R07. 89 OTHER CHEST PAIN 05/25/2018 HILL MYERSUA R Ot M17. 11 UNILATERAL PRIMARY OSTEOARTHRITIS, RIGHT 05/25/2018 HILL MYERSUA R Ot S83.241A OTH TEAR OF MEDIAL MENISCUS, CURRENT INJ 05/25/2018 ROBIN MYERS R Ot S83.281A OTH TEAR OF LAT MENSC, CURRENT INJURY, R 05/25/2018 ROBIN MYERS R Ot W19.XXXA UNSPECIFIED FALL, INITIAL ENCOUNTER 05/25/2018 RACHAEL MCKEON MD Ot E27.9 DISORDER OF ADRENAL GLAND, UNSPECIFIED 05/25/2018 RACHAEL MCKEON MD Ot I70.0 ATHEROSCLEROSIS OF [place]ORT[place] 05/25/2018 RACHAEL MCKEON MD Ot K57.30 DVRTCLOS OF LG INT W/O PERFORATION OR AB 05/25/2018 RACHAEL MCKEON MD Ot N28.89 OTHER SPECIFIED DISORDERS OF KIDNEY AND 05/25/2018 KATIUSKA SPANN MD Ot E11 .9 TYPE 2 DIABETES MELLITUS WITHOUT COMPLIC 05/25/2018 KATIUSKA SPANN MD, Ot F32 .9 MAJOR DEPRESSIVE DISORDER, SINGLE EPISOD 05/25/2018 KATIUSKA SPANN MD, Ot F41 .9 ANXIETY DISORDER, UNSPECIFIED 05/25/2018 KATIUSKA SPANN MD, Ot H25.12 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 CATARACT, LEFT EYE 05/25/2018 KATIUSKA SPANN MD, Ot I10 ESSENTIAL (PRIMARY) HYPERTENSION 05/25/2018 KATIUSKA SPANN MD Ot K21 .9 GASTRO-ESOPHAGEAL REFLUX DISEASE WITHOUT 05/25/2018 KATIUSKA SPANN MD, Ot M19.91 PRIMARY OSTEOARTHRITIS, UNSPECIFIED SITE 05/25/2018 KATIUSKA SPANN MD Ot Z79.01 PENITENTIARY (CURRENT) USE OF ANTICOAGULANT 05/25/2018 KATIUSKA SPANN MD Ot Z79.899 OTHER DEMOLITION SPECIALIST (CURRENT) DRUG THERAPY 05/25/2018 KATIUSKA SPANN MD Ot Z87.891 PERSONAL HISTORY OF NICOTINE DEPENDENCE 05/27/2018 KATIUSKA SPANN MD Ot E11 .9 TYPE 2 DIABETES MELLITUS WITHOUT COMPLIC 05/27/2018 KATIUSKA SPANN MD Ot F32 .9 MAJOR DEPRESSIVE DISORDER, SINGLE EPISOD 05/27/2018 KATIUSKA SPANN MD Ot F41 .9 ANXIETY DISORDER, UNSPECIFIED 05/27/2018 KATIUSKA SPANN MD Ot H25.12 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 CATARACT, LEFT EYE 05/27/2018 KATIUSKA SPANN MD Ot I10 ESSENTIAL (PRIMARY) HYPERTENSION 05/27/2018 KATIUSKA SPANN MD Ot K21 .9 GASTRO-ESOPHAGEAL REFLUX DISEASE WITHOUT 05/27/2018 KATIUSKA SPANN MD Ot M19.91 PRIMARY OSTEOARTHRITIS, UNSPECIFIED SITE 05/27/2018 KATIUSKA SPANN MD Ot Z79.01 DEMOLITION SPECIALIST (CURRENT) USE OF ANTICOAGULANT 05/27/2018 KATIUSKA SPANN MD Ot Z79.899 OTHER PENITENTIARY (CURRENT) DRUG THERAPY 05/27/2018 KATIUSKA SPANN MD Ot Z87.891 PERSONAL HISTORY OF NICOTINE DEPENDENCE 05/31/2018 DYLAN SAHU MD Ot D68. 61 ANTIPHOSPHOLIPID SYNDROME 05/31/2018 DYLAN SAHU MD Ot E03. 9 HYPOTHYROIDISM, UNSPECIFIED 05/31/2018 DYLAN SAHU MD Ot E11. 9 TYPE 2 DIABETES MELLITUS WITHOUT COMPLIC 05/31/2018 DYLAN SAHU MD Ot E66. 9 OBESITY, UNSPECIFIED 05/31/2018 DYLAN SAHU MD Ot E78. 2 MIXED HYPERLIPIDEMIA 05/31/2018 DYLAN SAHU MD Ot R07. 89 OTHER CHEST PAIN 05/31/2018 DYLAN SAHU MD Ot D68. 61 ANTIPHOSPHOLIPID SYNDROME 05/31/2018 DYLAN SAHU MD Ot E03. 9 HYPOTHYROIDISM, UNSPECIFIED 05/31/2018 DYLAN SAHU MD Ot E11. 9 TYPE 2 DIABETES MELLITUS WITHOUT COMPLIC 05/31/2018 DYLAN SAHU MD Ot E66. 9 OBESITY, UNSPECIFIED 05/31/2018 DYLAN SAHU MD Ot E78. 2 MIXED HYPERLIPIDEMIA 05/31/2018 DYLAN SAHU MD Ot R07. 89 OTHER CHEST PAIN 05/31/2018 BJORN OROZCO, ROBIN R Ot M17. 11 UNILATERAL PRIMARY OSTEOARTHRITIS, RIGHT 05/31/2018 SWEET PA, ROBIN R Ot S83.241A OTH TEAR OF MEDIAL MENISCUS, CURRENT INJ 05/31/2018 SWEET PAM, ROBIN R Ot S83.281A OTH TEAR OF LAT MENSC, CURRENT INJURY, R 05/31/2018 BJORN OROZCO, ROBIN R Ot W19.XXXA UNSPECIFIED FALL, INITIAL ENCOUNTER 05/31/2018 RACHAEL MCKEON MD Ot E27.9 DISORDER OF ADRENAL GLAND, UNSPECIFIED 05/31/2018 RACHAEL MCKEON MD Ot I70.0 ATHEROSCLEROSIS OF [place]ORT[place] 05/31/2018 RACHAEL MCKEON MD Ot K57.30 DVRTCLOS OF LG INT W/O PERFORATION OR AB 05/31/2018 RACHAEL MCKEON MD Ot N28.89 OTHER SPECIFIED DISORDERS OF KIDNEY AND 06/01/2018 KATIUSKA SPANN MD, Ot Z01.818 ENCOUNTER FOR OTHER PREPROCEDURAL EXAMIN 06/03/2018 KATIUSKA SPANN MD, Ot E03 .9 HYPOTHYROIDISM, UNSPECIFIED 06/03/2018 KATIUSKA SPANN MD Ot E11.36 TYPE 2 DIABETES MELLITUS WITH DIABETIC C 06/03/2018 AKTIUSKA SPANN MD Ot E78.00 PURE HYPERCHOLESTEROLEMIA, UNSPECIFIED 06/03/2018 KATIUSKA SPANN MD Ot F32 .9 MAJOR DEPRESSIVE DISORDER, SINGLE EPISOD 06/03/2018 KATIUSKA SPANN MD, Ot F41 .9 ANXIETY DISORDER, UNSPECIFIED 06/03/2018 KATIUSKA SPANN MD Ot H25.11 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 CATARACT, RIGHT EYE 06/03/2018 KATIUSKA SPANN MD Ot I10 ESSENTIAL (PRIMARY) HYPERTENSION 06/03/2018 KATIUSKA SPANN MD Ot K21 .9 GASTRO-ESOPHAGEAL REFLUX DISEASE WITHOUT 06/03/2018 KATIUSKA SPANN MD Ot Z79.01 DEMOLITION SPECIALIST (CURRENT) USE OF ANTICOAGULANT 06/03/2018 KATIUSKA SPANN MD Ot Z79.899 OTHER DEMOLITION SPECIALIST (CURRENT) DRUG THERAPY 06/03/2018 KATIUSKA SPANN MD Ot Z87.891 PERSONAL HISTORY OF NICOTINE DEPENDENCE 06/03/2018 KATIUSKA SPANN MD Ot Z01.818 ENCOUNTER FOR OTHER PREPROCEDURAL EXAMIN 06/07/2018 KATIUSKA SPANN MD Ot E03 .9 HYPOTHYROIDISM, UNSPECIFIED 06/07/2018 KATIUSKA SPANN MD Ot E11.36 TYPE 2 DIABETES MELLITUS WITH DIABETIC C 06/07/2018 KATIUSKA SPANN MD Ot E78.00 PURE HYPERCHOLESTEROLEMIA, UNSPECIFIED 06/07/2018 KATIUSKA SPANN MD Ot F32 .9 MAJOR DEPRESSIVE DISORDER, SINGLE EPISOD 06/07/2018 KATIUSKA SPANN MD Ot F41 .9 ANXIETY DISORDER, UNSPECIFIED 06/07/2018 KATIUSKA SPANN MD Ot H25.11 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 CATARACT, RIGHT EYE 06/07/2018 KATIUSKA SPANN MD Ot I10 ESSENTIAL (PRIMARY) HYPERTENSION 06/07/2018 KATIUSKA SPANN MD Ot K21 .9 GASTRO-ESOPHAGEAL REFLUX DISEASE WITHOUT 06/07/2018 KATIUSKA SPANN MD Ot Z79.01 DEMOLITION SPECIALIST (CURRENT) USE OF ANTICOAGULANT 06/07/2018 KATIUSKA SPANN MD Ot Z79.899 OTHER DEMOLITION SPECIALIST (CURRENT) DRUG THERAPY 06/07/2018 KATIUSKA SPANN MD Ot Z87.891 PERSONAL HISTORY OF NICOTINE DEPENDENCE 06/08/2018 KATIUSKA SPANN MD Ot E03 .9 HYPOTHYROIDISM, UNSPECIFIED 06/08/2018 KATIUSKA SPANN MD Ot E11.36 TYPE 2 DIABETES MELLITUS WITH DIABETIC C 06/08/2018 KATIUSKA SPANN MD Ot E78.00 PURE HYPERCHOLESTEROLEMIA, UNSPECIFIED 06/08/2018 KATIUSKA SPANN MD Ot F32 .9 MAJOR DEPRESSIVE DISORDER, SINGLE EPISOD 06/08/2018 KATIUSKA SPANN MD Ot F41 .9 ANXIETY DISORDER, UNSPECIFIED 06/08/2018 KATIUSKA SPANN MD Ot H25.11 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 CATARACT, RIGHT EYE 06/08/2018 KATIUSKA SPANN MD Ot I10 ESSENTIAL (PRIMARY) HYPERTENSION 06/08/2018 KATIUSKA SPANN MD Ot K21 .9 GASTRO-ESOPHAGEAL REFLUX DISEASE WITHOUT 06/08/2018 KATIUSKA SPANN MD Ot Z79.01 PENITENTIARY (CURRENT) USE OF ANTICOAGULANT 06/08/2018 KATIUSKA SPANN MD Ot Z79.899 OTHER DEMOLITION SPECIALIST (CURRENT) DRUG THERAPY 06/08/2018 KATIUSKA SPANN MD, Ot Z87.891 PERSONAL HISTORY OF NICOTINE DEPENDENCE 12/09/2018 DYLAN SAHU MD Ot D68. 61 ANTIPHOSPHOLIPID SYNDROME 12/09/2018 DYLAN SAHU MD Ot E03. 9 HYPOTHYROIDISM, UNSPECIFIED 12/09/2018 DYLAN SAHU MD Ot E11. 9 TYPE 2 DIABETES MELLITUS WITHOUT COMPLIC 12/09/2018 DYLAN SAHU MD Ot E66. 9 OBESITY, UNSPECIFIED 12/09/2018 DYLAN SAHU MD Ot E78. 2 MIXED HYPERLIPIDEMIA 12/09/2018 DYLAN SAHU MD Ot R07. 89 OTHER CHEST PAIN 12/09/2018 DYLAN SAHU MD Ot D68. 61 ANTIPHOSPHOLIPID SYNDROME 12/09/2018 DYLAN SAHU MD Ot E03. 9 HYPOTHYROIDISM, UNSPECIFIED 12/09/2018 DYLAN SAHU MD Ot E11. 9 TYPE 2 DIABETES MELLITUS WITHOUT COMPLIC 12/09/2018 DYLAN SAHU MD Ot E66. 9 OBESITY, UNSPECIFIED 12/09/2018 DYLAN SAHU MD Ot E78. 2 MIXED HYPERLIPIDEMIA 12/09/2018 DYLAN SAHU MD Ot R07. 89 OTHER CHEST PAIN 12/09/2018 ROBIN MYERS Ot M17. 11 UNILATERAL PRIMARY OSTEOARTHRITIS, RIGHT 12/09/2018 ROBIN MYERS Ot S83.241A OTH TEAR OF MEDIAL MENISCUS, CURRENT INJ 12/09/2018 ROBIN MYERS Ot S83.281A OTH TEAR OF LAT MENSC, CURRENT INJURY, R 12/09/2018 ROBIN MYERS Ot W19.XXXA UNSPECIFIED FALL, INITIAL ENCOUNTER 12/09/2018 LINDA RICHMOND, RACHAEL Sykes Ot E27.9 DISORDER OF ADRENAL GLAND, UNSPECIFIED 12/09/2018 RACHAEL MCKEON MD Ot I70.0 ATHEROSCLEROSIS OF [place]ORT[place] 12/09/2018 RACHAEL MCKEON MD Ot K57.30 DVRTCLOS OF LG INT W/O PERFORATION OR AB 12/09/2018 RACHAEL MCKEON MD Ot N28.89 OTHER SPECIFIED DISORDERS OF KIDNEY AND 12/13/2018 MELODIE MCKEON APRN Ot I1 0 ESSENTIAL (PRIMARY) HYPERTENSION 12/13/2018 MELODIE MCKEON APRN Ot R5 1 HEADACHE 12/13/2018 MELODIE MCKEON APRN Ot Z79.01 PENITENTIARY (CURRENT) USE OF ANTICOAGULANT 12/15/2018 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 9 TYPE 2 DIABETES MELLITUS WITHOUT COMPLIC 01/13/2019 DYLAN SAHU MD Ot E78. 2 MIXED HYPERLIPIDEMIA 01/13/2019 DYLAN SAHU MD Ot I10 ESSENTIAL (PRIMARY) HYPERTENSION 01/13/2019 DYLAN SAHU MD Ot I25. 9 CHRONIC ISCHEMIC HEART DISEASE, UNSPECIF 01/13/2019 DYLAN SAHU MD Ot I65. 29 OCCLUSION AND STENOSIS OF UNSPECIFIED CA 01/18/2019 DYLAN SAHU MD Ot D68. 61 ANTIPHOSPHOLIPID SYNDROME 01/18/2019 DYLAN SAHU MD Ot E03. 9 HYPOTHYROIDISM, UNSPECIFIED 01/18/2019 DYLAN SAHU MD Ot E11. 9 TYPE 2 DIABETES MELLITUS WITHOUT COMPLIC 01/18/2019 DYLAN SAHU MD Ot E78. 2 MIXED HYPERLIPIDEMIA 01/18/2019 DYLAN SAHU MD Ot I10 ESSENTIAL (PRIMARY) HYPERTENSION 01/18/2019 DYLAN SAHU MD Ot I25. 10 ATHSCL HEART DISEASE OF [place] CORONARY 01/18/2019 DYLAN SAHU MD Ot I65. 23 OCCLUSION AND STENOSIS OF BILATERAL [place] 01/18/2019 DYLAN SAHU MD Ot K21. 9 GASTRO-ESOPHAGEAL REFLUX DISEASE WITHOUT 01/18/2019 DYLAN SAHU MD Ot M79.671 PAIN IN RIGHT FOOT 01/18/2019 DYLAN SAHU MD, Ot M79.672 PAIN IN LEFT FOOT 01/18/2019 DYLAN SAHU MD, Ot Z79. 01 PENITENTIARY (CURRENT) USE OF ANTICOAGULANT 01/18/2019 DYLAN SAHU MD Ot Z79. 84 DEMOLITION SPECIALIST (CURRENT) USE OF ORAL HYPOGLYC 01/18/2019 DYLAN SAHU MD, Ot Z79.899 OTHER DEMOLITION SPECIALIST (CURRENT) DRUG THERAPY 01/18/2019 DYLAN SAHU MD, Ot Z82. 49 FAMILY HX OF ISCHEM HEART DIS AND OTH DI 01/18/2019 DYLAN SAHU MD, Ot Z87.891 PERSONAL HISTORY OF NICOTINE DEPENDENCE 01/18/2019 DYLAN SAHU MD, Ot Z88. 2 ALLERGY STATUS TO SULFONAMIDES STATUS 01/18/2019 DYLAN SAHU MD, Ot Z88. 5 ALLERGY STATUS TO NARCOTIC AGENT STATUS 01/20/2019 DYLAN SAHU MD Ot D68. 61 ANTIPHOSPHOLIPID SYNDROME 01/20/2019 DYLAN SAHU MD, Ot E03. 9 HYPOTHYROIDISM, UNSPECIFIED 01/20/2019 DYLAN SAHU MD Ot E11. 9 TYPE 2 DIABETES MELLITUS WITHOUT COMPLIC 01/20/2019 DYLAN SAHU MD Ot E78. 2 MIXED HYPERLIPIDEMIA 01/20/2019 DYLAN SAHU MD Ot I10 ESSENTIAL (PRIMARY) HYPERTENSION 01/20/2019 DYLAN SAHU MD Ot I25. 10 ATHSCL HEART DISEASE OF [place] CORONARY 01/20/2019 DYLAN SAHU MD Ot I65. 23 OCCLUSION AND STENOSIS OF BILATERAL [place]ONG 01/20/2019 DYLAN SAHU MD Ot K21. 9 GASTRO-ESOPHAGEAL REFLUX DISEASE WITHOUT 01/20/2019 DYLAN SAHU MD, Ot M79.671 PAIN IN RIGHT FOOT 01/20/2019 DYLAN SAHU MD, Ot M79.672 PAIN IN LEFT FOOT 01/20/2019 DYLAN SAHU MD, Ot Z79. 01 PENITENTIARY (CURRENT) USE OF ANTICOAGULANT 01/20/2019 DYLAN SAHU MD Ot Z79. 84 PENITENTIARY (CURRENT) USE OF ORAL HYPOGLYC 01/20/2019 DYLAN SAHU MD, Ot Z79.899 OTHER PENITENTIARY (CURRENT) DRUG THERAPY 01/20/2019 DYLAN SAHU MD Ot Z82. 49 FAMILY HX OF ISCHEM HEART DIS AND OTH DI 01/20/2019 DYLAN SAHU MD, Ot Z87.891 PERSONAL HISTORY OF NICOTINE DEPENDENCE 01/20/2019 DYLAN SAHU MD, Ot Z88. 2 ALLERGY STATUS TO SULFONAMIDES STATUS 01/20/2019 DYLAN SAHU MD, Ot Z88. 5 ALLERGY STATUS TO NARCOTIC AGENT STATUS 02/08/2019 DYLAN SAHU MD Ot E11. 9 TYPE 2 DIABETES MELLITUS WITHOUT COMPLIC 02/08/2019 DYLAN SAHU MD, Ot E78. 2 MIXED HYPERLIPIDEMIA 02/08/2019 DYLAN SAHU MD, Ot I10 ESSENTIAL (PRIMARY) HYPERTENSION 02/08/2019 DYLAN SAHU MD, Ot I25. 9 CHRONIC ISCHEMIC HEART DISEASE, UNSPECIF 02/08/2019 DYLAN SAHU MD, Ot I65. 29 OCCLUSION AND STENOSIS OF UNSPECIFIED CA 05/03/2019 W E03.9 Hypo thyroidism, unspecified Janina Martinez 05/05/2019 W E03.9 Hypo thyroidism, unspecified Janina Martinez 07/13/2019 W D68.61 Ant iphospholipid syndrome [facility] 07/13/2019 W E03.4 Atro phy of thyroid (acquired) [facility] 07/13/2019 W G89.29 Oth er chronic pain [facility] 07/13/2019 W I10 Essent ial (primary) hypertension [facility] 07/13/2019 W M25.561 Ch ronic pain of both knees [facility] 07/13/2019 W M25.562 Pa in in left knee [facility] 07/13/2019 W Z79.01 Truong g term (current) use of anticoagulants [facility] 07/28/2019 RADHA RICHMOND, BEN Lora Ot M17.12 UNILATERAL PRIMARY OSTEOARTHRITIS, LEFT 07/28/2019 RADHA RICHMOND, BEN Lora Ot Z01.810 ENCOUNTER FOR PREPROCEDURAL CARDIOVASCUL 07/28/2019 BEN GARCIA MD Ot Z01.811 ENCOUNTER FOR PREPROCEDURAL RESPIRATORY 07/28/2019 BEN GARCIA MD Ot Z01.812 ENCOUNTER FOR PREPROCEDURAL LABORATORY E 07/28/2019 RADHA RICHMOND, BEN Lora Ot Z11.59 ENCOUNTER FOR SCREENING FOR OTHER VIRAL 07/28/2019 RADHA RICHMOND, BEN Lora Ot M17.12 UNILATERAL PRIMARY OSTEOARTHRITIS, LEFT 07/28/2019 RADHA RICHMOND, BEN Lora Ot Z01.810 ENCOUNTER FOR PREPROCEDURAL CARDIOVASCUL 07/28/2019 BEN GARCIA MD Ot Z01.811 ENCOUNTER FOR PREPROCEDURAL RESPIRATORY 07/28/2019 BEN GARCIA MD Ot Z01.812 ENCOUNTER FOR PREPROCEDURAL LABORATORY E 07/28/2019 RADHA RICHMOND, BEN Lora Ot Z11.59 ENCOUNTER FOR SCREENING FOR OTHER VIRAL 07/31/2019 W G43.109 Vickie carter with acute onset aura Melodie Mckeon 07/31/2019 W J01.80 Oth er acute sinusitis Melodie Mckeon 07/31/2019 W J30.89 Oth er allergic rhinitis Melodie Mckeon 07/31/2019 W G43.109 Vickie carter with acute onset aura Melodie Mckeon 07/31/2019 W J01.80 Oth er acute sinusitis Melodie Mckeon 07/31/2019 W J30.89 Oth er allergic rhinitis Melodie Mckeon 08/04/2019 RADHA RICHMOND, BEN Lora Ot D68.61 ANTIPHOSPHOLIPID SYNDROME 08/04/2019 BEN GARCIA MD Ot E03.9 HYPOTHYROIDISM, UNSPECIFIED 08/04/2019 RADHA RICHMOND, BEN Lora Ot E11.9 TYPE 2 DIABETES MELLITUS WITHOUT COMPLIC 08/04/2019 BEN GARCIA MD Ot E78.00 PURE HYPERCHOLESTEROLEMIA, UNSPECIFIED 08/04/2019 BEN GARCIA MD Ot F32.9 MAJOR DEPRESSIVE DISORDER, SINGLE EPISOD 08/04/2019 BEN GARCIA MD Ot F41.9 ANXIETY DISORDER, UNSPECIFIED 08/04/2019 BEN GARCIA MD Ot G43.909 MIGRAINE, UNSP, NOT INTRACTABLE, WITHOUT 08/04/2019 BEN GARCIA MD Ot G47.33 OBSTRUCTIVE SLEEP APNEA (ADULT) (PEDIATR 08/04/2019 BEN GARCIA MD Ot I1 0 ESSENTIAL (PRIMARY) HYPERTENSION 08/04/2019 BEN GARCIA MD Ot I25.10 ATHSCL HEART DISEASE OF [place] CORONARY 08/04/2019 BEN GARCIA MD, Ot I70.1 ATHEROSCLEROSIS OF RENAL ARTERY 08/04/2019 BEN GARCIA MD, Ot J30.2 OTHER SEASONAL ALLERGIC RHINITIS 08/04/2019 BEN GARCIA MD, Ot K21.9 GASTRO-ESOPHAGEAL REFLUX DISEASE WITHOUT 08/04/2019 BEN GARCIA MD Ot L93.0 DISCOID LUPUS ERYTHEMATOSUS 08/04/2019 BEN GARCIA MD, Ot M17.12 UNILATERAL PRIMARY OSTEOARTHRITIS, LEFT 08/04/2019 BEN GARCIA MD, Ot M19.91 PRIMARY OSTEOARTHRITIS, UNSPECIFIED SITE 08/04/2019 BEN GARCIA MD Ot M79.7 FIBROMYALGIA 08/04/2019 BEN GARCIA MD, Ot T78.49XA OTHER ALLERGY, INITIAL ENCOUNTER 08/04/2019 BEN GARCIA MD, Ot Z79.01 DEMOLITION SPECIALIST (CURRENT) USE OF ANTICOAGULANT 08/04/2019 BEN GARCIA MD, Ot Z79.84 DEMOLITION SPECIALIST (CURRENT) USE OF ORAL HYPOGLYC 08/04/2019 BEN GARCIA MD Ot Z86.718 PERSONAL HISTORY OF OTHER VENOUS THROMBO 08/04/2019 BEN GARCIA MD, Ot Z87.891 PERSONAL HISTORY OF NICOTINE DEPENDENCE 08/05/2019 BEN GARCIA MD Ot B02.9 ZOSTER WITHOUT COMPLICATIONS 08/05/2019 BEN GARCIA MD Ot D68.61 ANTIPHOSPHOLIPID SYNDROME 08/05/2019 BEN GARCIA MD Ot E03.9 HYPOTHYROIDISM, UNSPECIFIED 08/05/2019 BEN GARCIA MD Ot E11.9 TYPE 2 DIABETES MELLITUS WITHOUT COMPLIC 08/05/2019 BEN GARCIA MD Ot E78.00 PURE HYPERCHOLESTEROLEMIA, UNSPECIFIED 08/05/2019 BEN GARCIA MD Ot F32.9 MAJOR DEPRESSIVE DISORDER, SINGLE EPISOD 08/05/2019 BEN GARCIA MD, Ot F41.9 ANXIETY DISORDER, UNSPECIFIED 08/05/2019 BNE GARCIA MD, Ot G43.909 MIGRAINE, UNSP, NOT INTRACTABLE, WITHOUT 08/05/2019 BEN GARCIA MD Ot G47.33 OBSTRUCTIVE SLEEP APNEA (ADULT) (PEDIATR 08/05/2019 ZAFUTA MD, BEN P Ot I1 0 ESSENTIAL (PRIMARY) HYPERTENSION 08/05/2019 BEN GARCIA MD, Ot I25.10 ATHSCL HEART DISEASE OF [place] CORONARY 08/05/2019 BEN GARCIA MD, Ot I70.1 ATHEROSCLEROSIS OF RENAL ARTERY 08/05/2019 BEN GARCIA MD, Ot J30.2 OTHER SEASONAL ALLERGIC RHINITIS 08/05/2019 BEN GARCIA MD, Ot K21.9 GASTRO-ESOPHAGEAL REFLUX DISEASE WITHOUT 08/05/2019 BEN GARCIA MD, Ot L93.0 DISCOID LUPUS ERYTHEMATOSUS 08/05/2019 BEN GARCIA MD, Ot M17.12 UNILATERAL PRIMARY OSTEOARTHRITIS, LEFT 08/05/2019 BEN GARCIA MD, Ot M19.91 PRIMARY OSTEOARTHRITIS, UNSPECIFIED SITE 08/05/2019 BEN GARCIA MD, Ot M79.7 FIBROMYALGIA 08/05/2019 BEN GARCIA MD, Ot R07.9 CHEST PAIN, UNSPECIFIED 08/05/2019 BEN GARCIA MD Ot T78.49XA OTHER ALLERGY, INITIAL ENCOUNTER 08/05/2019 BEN GARCIA MD, Ot Z79.01 DEMOLITION SPECIALIST (CURRENT) USE OF ANTICOAGULANT 08/05/2019 BEN GARCIA MD, Ot Z79.84 PENITENTIARY (CURRENT) USE OF ORAL HYPOGLYC 08/05/2019 BEN GARCIA MD, Ot Z86.718 PERSONAL HISTORY OF OTHER VENOUS THROMBO 08/05/2019 BEN GARCIA MD, Ot Z87.891 PERSONAL HISTORY OF NICOTINE DEPENDENCE 08/07/2019 W E03.9 Hypo thyroidism, unspecified Jevon Coleman 08/08/2019 BEN GARCIA MD Ot I82.402 ACUTE EMBOLISM AND THOMBOS UNSP DEEP VEI 08/11/2019 BEN GARCIA MD, Ot I82.402 ACUTE EMBOLISM AND THOMBOS UNSP DEEP VEI 08/11/2019 BEN GARCIA MD, Ot Z96.651 PRESENCE OF RIGHT ARTIFICIAL KNEE JOINT 08/11/2019 BEN GARCIA MD, Ot Z98.890 OTHER SPECIFIED POSTPROCEDURAL STATES 08/22/2019 W V43.65 KNE E JOINT REPLACED BY OTHER MEANS 08/22/2019 W V54.81 AFT ERCARE FOLLOWING JOINT REPLACEMENT 08/22/2019 W Z47.1 AFTE RCARE FOLLOWING JOINT REPLACEMENT SURGERY 08/22/2019 W Z96.652 IA ESENCE OF LEFT ARTIFICIAL KNEE JOINT 08/22/2019 W V43.65 KNE E JOINT REPLACED BY OTHER MEANS 08/22/2019 W V54.81 AFT ERCARE FOLLOWING JOINT REPLACEMENT 08/22/2019 W Z47.1 AFTE RCARE FOLLOWING JOINT REPLACEMENT SURGERY 08/22/2019 W Z96.652 IA ESENCE OF LEFT ARTIFICIAL KNEE JOINT 08/30/2019 RADHA RICHMOND, BEN Lora Ot I82.402 ACUTE EMBOLISM AND THOMBOS UNSP DEEP VEI 08/30/2019 RADHA RICHMOND, BEN Lora Ot Z96.651 PRESENCE OF RIGHT ARTIFICIAL KNEE JOINT 08/30/2019 RADHA RICHMOND, BEN Lora Ot Z98.890 OTHER SPECIFIED POSTPROCEDURAL STATES 09/05/2019 RADHA RICHMOND, BEN Lora Ot I82.402 ACUTE EMBOLISM AND THOMBOS UNSP DEEP VEI 09/05/2019 RADHA RICHMOND, BEN Lora Ot Z96.651 PRESENCE OF RIGHT ARTIFICIAL KNEE JOINT 09/05/2019 RADHA RICHMOND, BEN Lora Ot Z98.890 OTHER SPECIFIED POSTPROCEDURAL STATES 09/05/2019 W E11.9 Type 2 diabetes mellitus without complications Jevon Coleman 09/05/2019 W I10 Essent ial (primary) hypertension Jevon Coleman Procedures Code Description Performed By Per formed On [id number] IN SERTION OF INT FIX INTO R TIBIA, OPEN 02/21/2016 [id number] RE POSITION RIGHT FIBULA WITH INT FIX, OP 02/21/2016 [id number] RE POSITION RIGHT ANKLE JOINT WITH INT FI 02/21/[id number] OF L KNEE JT WITH SYNTH SUB, LATRICIA 08/02/2019 Results Test Result Range Protime - 01/21/16 09:19 INR 3.0 1.0-4.0 Protime 36.9 Sec 9.9-12.8 FRESH FROZEN PLASMA - 02/19/16 15:42 FRESH FROZEN PLASMA TRANSFUSE D 02/20/16 1020 NRG ABO+Rh group - 02/19/16 15:42 ABO+Rh group ON NRG Complete blood count (CBC) with automate d white blood cell (WBC) differential - 02/19/16 15:52 Blood leukocytes automated count (number/volume) 5.5 10*3/uL 4.3-11.0 Blood erythrocytes automated count (number/volume) 4.96 10*6/uL 4.35-5.85 Venous blood hemoglobin measurement (mass/volume) 13.1 g/dL 11.5-16.0 Blood hematocrit (volume fraction) 41 % 35-52 Automated erythrocyte mean corpuscular volume 83 [ foz_us] 80-99 Automated erythrocyte mean corpuscular h emoglobin (mass per erythrocyte) 26 pg 25-34 Automated erythrocyte mean corpuscular h emoglobin concentration measurement (mass/volume) 32 g/dL 32-36 Automated erythrocyte distribution width ratio 15. 8 % 10.0- 14.5 Automated blood platelet count (count/volume) 257 10*3/uL 130-400 Automated blood platelet mean volume measurement 10.7 [foz_us] 7.4-10.4 Automated blood neutrophils/100 leukocytes 69 % 42-75 Automated blood lymphocytes/100 leukocytes 19 % 12-44 Blood monocytes/100 leukocytes 9 % 0-12 Automated blood eosinophils/100 leukocytes 2 % 0-10 Automated blood basophils/100 leukocytes 1 % 0-10 Blood neutrophils automated count (number/volume) 3.8 10*3 1.8-7.8 Blood lymphocytes automated count (number/volume) 1.1 10*3 1.0-4.0 Blood monocytes automated count (number/volume) 0. 5 10*3 0.0-1.0 Automated eosinophil count 0.1 10*3/uL 0 .0-0.3 Automated blood basophil count (count/volume) 0.1 10*3/uL 0.0-0.1 PT panel in platelet poor plasma by coag ulation assay - 02/19/16 15:52 Prothrombin time (PT) in platelet poor plasma by coagu lation assay 24.9 s 12.2-14.7 INR in platelet poor plasma or blood by coagulation as say 2.3 0.8-1.4 Activated partial thromboplastin time (a PTT) in platelet poor plasma bycoagulation assay - 02/19/16 15:52 Activated partial thromboplastin time (a PTT) in platelet poor plasma bycoagulation assay 69 s 24-35 Comprehensive metabolic panel - 02/19/16 15:52 Serum or plasma sodium measurement (moles/volume) 138 mmol/L 135-145 Serum or plasma potassium measurement (moles/volume) 4.6 mmol/L 3.6-5.0 Serum or plasma chloride measurement (moles/volume) 103 mmol/L 98-107 Carbon dioxide 27 mmol/L 21-32 Serum or plasma anion gap determination (moles/volume) 8 mmol/L 5-14 Serum or plasma urea nitrogen measurement (mass/volume ) 13 mg/dL 7-18 Serum or plasma creatinine measurement (mass/volume) 0.96 mg/dL 0.60-1.30 Serum or plasma urea nitrogen/creatinine mass ratio 14 NRG Serum or plasma creatinine measurement w ith calculation of estimated glomerular filtration rate 58 NRG Serum or plasma glucose measurement (mass/volume) 100 mg/dL 70-105 Serum or plasma calcium measurement (mass/volume) 9.3 mg/dL 8.5-10.1 Serum or plasma total bilirubin measurement (mass/volu me) 0.4 mg/dL 0.1-1.0 Serum or plasma alkaline phosphatase deandra surement (enzymatic activity/volume) 92 U/L 40-136 Serum or plasma aspartate aminotransfera se measurement (enzymatic activity/volume) 33 U/L 5-34 Serum or plasma alanine aminotransferase measurement (enzymatic activity/volume) 30 U/L 0-55 Serum or plasma protein measurement (mass/volume) 7.1 g/dL 6.4-8.2 Serum or plasma albumin measurement (mass/volume) 4.4 g/dL 3.2-4.5 Capillary blood glucose measurement by g lucometer (mass/volume) - 02/19/16 20:51 Capillary blood glucose measurement by glucometer (mas s/volume) 94 mg/dL 70-110 PT panel in platelet poor plasma by coag ulation assay - 02/20/16 05:08 Prothrombin time (PT) in platelet poor plasma by coagu lation assay 21.6 s 12.2-14.7 INR in platelet poor plasma or blood by coagulation as say 1.9 0.8-1.4 Capillary blood glucose measurement by g lucometer (mass/volume) - 02/20/16 06:40 Capillary blood glucose measurement by glucometer (mas s/volume) 117 mg/dL 70-110 [id number] - 02/20/16 09:17 [id number] SPECIMEN AVAILABLE NRG Methicillin resistant Staphylococcus aur eus (MRSA) screening culture - 02/20/16 09:35 Methicillin resistant Staphylococcus aureus (MRSA) scr eening culture NEG NRG Capillary blood glucose measurement by g lucometer (mass/volume) - 02/20/16 11:29 Capillary blood glucose measurement by glucometer (mas s/volume) 112 mg/dL 70-110 Capillary blood glucose measurement by g lucometer (mass/volume) - 02/20/16 15:45 Capillary blood glucose measurement by glucometer (mas s/volume) 86 mg/dL 70-110 Capillary blood glucose measurement by g lucometer (mass/volume) - 02/20/16 20:56 Capillary blood glucose measurement by glucometer (mas s/volume) 115 mg/dL 70-110 Complete blood count (CBC) with automate d white blood cell (WBC) differential - 02/21/16 05:20 Blood leukocytes automated count (number/volume) 4.9 10*3/uL 4.3-11.0 Blood erythrocytes automated count (number/volume) 4.11 10*6/uL 4.35-5.85 Venous blood hemoglobin measurement (mass/volume) 10.9 g/dL 11.5-16.0 Blood hematocrit (volume fraction) 34 % 35-52 Automated erythrocyte mean corpuscular volume 84 [ foz_us] 80-99 Automated erythrocyte mean corpuscular h emoglobin (mass per erythrocyte) 27 pg 25-34 Automated erythrocyte mean corpuscular h emoglobin concentration measurement (mass/volume) 32 g/dL 32-36 Automated erythrocyte distribution width ratio 15. 5 % 10.0- 14.5 Automated blood platelet count (count/volume) 208 10*3/uL 130-400 Automated blood platelet mean volume measurement 10.9 [foz_us] 7.4-10.4 Automated blood neutrophils/100 leukocytes 57 % 42-75 Automated blood lymphocytes/100 leukocytes 29 % 12-44 Blood monocytes/100 leukocytes 7 % 0-12 Automated blood eosinophils/100 leukocytes 6 % 0-10 Automated blood basophils/100 leukocytes 1 % 0-10 Blood neutrophils automated count (number/volume) 2.8 10*3 1.8-7.8 Blood lymphocytes automated count (number/volume) 1.4 10*3 1.0-4.0 Blood monocytes automated count (number/volume) 0. 3 10*3 0.0-1.0 Automated eosinophil count 0.3 10*3/uL 0 .0-0.3 Automated blood basophil count (count/volume) 0.1 10*3/uL 0.0-0.1 PT panel in platelet poor plasma by coag ulation assay - 02/21/16 05:20 Prothrombin time (PT) in platelet poor plasma by coagu lation assay 18.2 s 12.2-14.7 INR in platelet poor plasma or blood by coagulation as say 1.5 0.8-1.4 Capillary blood glucose measurement by g lucometer (mass/volume) - 02/21/16 06:16 Capillary blood glucose measurement by glucometer (mas s/volume) 94 mg/dL 70-110 Capillary blood glucose measurement by g lucometer (mass/volume) - 02/21/16 11:03 Capillary blood glucose measurement by glucometer (mas s/volume) 80 mg/dL 70-110 Capillary blood glucose measurement by g lucometer (mass/volume) - 02/21/16 16:50 Capillary blood glucose measurement by glucometer (mas s/volume) 98 mg/dL 70-110 Capillary blood glucose measurement by g lucometer (mass/volume) - 02/21/16 20:00 Capillary blood glucose measurement by glucometer (mas s/volume) 114 mg/dL 70-110 PT panel in platelet poor plasma by coag ulation assay - 02/22/16 04:38 Prothrombin time (PT) in platelet poor plasma by coagu lation assay 16.0 s 12.2-14.7 INR in platelet poor plasma or blood by coagulation as say 1.3 0.8-1.4 Capillary blood glucose measurement by g lucometer (mass/volume) - 02/22/16 05:27 Capillary blood glucose measurement by glucometer (mas s/volume) 88 mg/dL 70-110 Capillary blood glucose measurement by g lucometer (mass/volume) - 02/22/16 11:13 Capillary blood glucose measurement by glucometer (mas s/volume) 97 mg/dL 70-110 Capillary blood glucose measurement by g lucometer (mass/volume) - 02/22/16 16:19 Capillary blood glucose measurement by glucometer (mas s/volume) 76 mg/dL 70-110 Capillary blood glucose measurement by g lucometer (mass/volume) - 02/22/16 20:40 Capillary blood glucose measurement by glucometer (mas s/volume) 102 mg/dL 70-110 Complete blood count (CBC) with automate d white blood cell (WBC) differential - 02/23/16 04:44 Blood leukocytes automated count (number/volume) 5.8 10*3/uL 4.3-11.0 Blood erythrocytes automated count (number/volume) 3.77 10*6/uL 4.35-5.85 Venous blood hemoglobin measurement (mass/volume) 10.0 g/dL 11.5-16.0 Blood hematocrit (volume fraction) 31 % 35-52 Automated erythrocyte mean corpuscular volume 83 [ foz_us] 80-99 Automated erythrocyte mean corpuscular h emoglobin (mass per erythrocyte) 27 pg 25-34 Automated erythrocyte mean corpuscular h emoglobin concentration measurement (mass/volume) 32 g/dL 32-36 Automated erythrocyte distribution width ratio 15. 2 % 10.0- 14.5 Automated blood platelet count (count/volume) 211 10*3/uL 130-400 Automated blood platelet mean volume measurement 11.3 [foz_us] 7.4-10.4 Automated blood neutrophils/100 leukocytes 62 % 42-75 Automated blood lymphocytes/100 leukocytes 22 % 12-44 Blood monocytes/100 leukocytes 10 % 0-12 Automated blood eosinophils/100 leukocytes 6 % 0-10 Automated blood basophils/100 leukocytes 1 % 0-10 Blood neutrophils automated count (number/volume) 3.6 10*3 1.8-7.8 Blood lymphocytes automated count (number/volume) 1.3 10*3 1.0-4.0 Blood monocytes automated count (number/volume) 0. 6 10*3 0.0-1.0 Automated eosinophil count 0.4 10*3/uL 0 .0-0.3 Automated blood basophil count (count/volume) 0.0 10*3/uL 0.0-0.1 PT panel in platelet poor plasma by coag ulation assay - 02/23/16 04:44 Prothrombin time (PT) in platelet poor plasma by coagu lation assay 15.8 s 12.2-14.7 INR in platelet poor plasma or blood by coagulation as say 1.3 0.8-1.4 Capillary blood glucose measurement by g lucometer (mass/volume) - 02/23/16 05:22 Capillary blood glucose measurement by glucometer (mas s/volume) 95 mg/dL 70-110 Capillary blood glucose measurement by g lucometer (mass/volume) - 02/23/16 11:43 Capillary blood glucose measurement by glucometer (mas s/volume) 126 mg/dL 70-110 Capillary blood glucose measurement by g lucometer (mass/volume) - 02/23/16 15:57 Capillary blood glucose measurement by glucometer (mas s/volume) 106 mg/dL 70-110 Capillary blood glucose measurement by g lucometer (mass/volume) - 02/23/16 20:58 Capillary blood glucose measurement by glucometer (mas s/volume) 123 mg/dL 70-110 Capillary blood glucose measurement by g lucometer (mass/volume) - 02/24/16 05:28 Capillary blood glucose measurement by glucometer (mas s/volume) 102 mg/dL 70-110 PT panel in platelet poor plasma by coag ulation assay - 02/24/16 05:38 Prothrombin time (PT) in platelet poor plasma by coagu lation assay 18.5 s 12.2-14.7 INR in platelet poor plasma or blood by coagulation as say 1.6 0.8-1.4 Capillary blood glucose measurement by g lucometer (mass/volume) - 02/24/16 10:25 Capillary blood glucose measurement by glucometer (mas s/volume) 105 mg/dL 70-110 Thyroid Stimulating Hormone - 02/26/16 1 1:30 TSH 0.19 mIU/mL 0.32-5.00 Comprehensive Metabolic Panel - 02/29/16 11:21 Albumin 4.8 g/dL 3.6-5.1 ALP 132 U/L 35-130 ALT 75 U/L 6-45 Anion Gap 17 6-14 AST 53 U/L 2-40 BUN 15 mg/dL 5-25 Calcium 10.2 mg/dL 8.3-10.4 Chloride 107 mmol/L 95-114 CO2 23 mEq/L 22-33 Creat 0.93 mg/dL 0.50-1.50 eGFR 60 mL/min/1.73m2 >59 Globulin 3.3 g/dL 2.3-3.5 Glucose 112 mg/dL 70-110 Osmo 297 280-295 Potassium 3.9 mmol/L 3.5-5.3 Sodium 143 mmol/L 134-148 TBil 0.6 mg/dL 0.2-1.2 TP 8.1 g/dL 6.0-8.3 Protime - 03/03/16 11:31 INR 2.6 1.0-4.0 Protime 31.8 Sec 9.9-12.8 Protime - 03/10/16 10:04 INR 4.2 1.0-4.0 Protime 52.5 Sec 9.9-12.8 Protime - 03/12/16 09:02 INR 1.8 1.0-4.0 Protime 21.5 Sec 9.9-12.8 Protime - 03/26/16 13:11 INR 1.9 1.0-4.0 Protime 23.3 Sec 9.9-12.8 Protime - 04/07/16 11:02 INR 1.9 1.0-4.0 Protime 22.5 Sec 9.9-12.8 Protime - 04/28/16 12:59 INR 3.0 1.0-4.0 Protime 36.7 Sec 9.9-12.8 VIT B-12 - 05/04/16 17:19 Vitamin B12 471.00 pg/mL 213.00-816.00 Protime - 05/18/16 09:49 INR 2.2 1.0-4.0 Protime 26.4 Sec 9.9-12.8 Protime - 06/16/16 13:29 INR 2.1 1.0-4.0 Protime 25.3 Sec 9.9-12.8 Protime - 07/06/16 10:14 INR 3.2 1.0-4.0 Protime 40.1 Sec 9.9-12.8 Comprehensive Metabolic Panel - 07/22/16 09:02 Albumin 4.3 g/dL 3.6-5.1 ALP 120 U/L 35-130 ALT 25 U/L 6-45 Anion Gap 17 6-14 AST 26 U/L 2-40 BUN 16 mg/dL 5-25 Calcium 9.8 mg/dL 8.3-10.4 Chloride 107 mmol/L 95-114 CO2 22 mEq/L 22-33 Creat 0.93 mg/dL 0.50-1.50 eGFR 60 mL/min/1.73m2 >59 Globulin 4.0 g/dL 2.3-3.5 Glucose 105 mg/dL 70-110 Osmo 295 280-295 Potassium 4.1 mmol/L 3.5-5.3 Sodium 142 mmol/L 134-148 TBil 0.3 mg/dL 0.2-1.2 TP 8.3 g/dL 6.0-8.3 LymeDisease Antibodies, Total and IgM, W ith Reflex to WB - 07/22/16 09:02 LYME IGG/IGM AB <0.91 ISR 0.00-0.90 LYME DISEASE AB, QUANT, IGM <0.80 INDEX 0.00-0.79 Flaco Mtn Spotted Fev,IgG - 07/22/16 09: 02 RMSF, IGG, EIA Negative Negative Flaco Mtn Spotted Fever, IgM - 07/22/16 09:02 FLACO MTN SPOTTED FEVER, IGM 0.98 index 0.00-0.89 Troponin I - 07/22/16 09:24 Troponin <0.020 ng/mL 0.0-0.4 Troponin I - 07/22/16 11:27 Troponin <0.020 ng/mL 0.0-0.4 Protime - 07/30/16 13:55 INR 4.1 called to Xochilt 1.0-4.0 Protime 51.5 Sec 9.9-12.8 Protime - 08/18/16 12:41 INR 1.6 1.0-4.0 Protime 18.5 Sec 9.9-12.8 Methicillin resistant Staphylococcus aur eus (MRSA) screening culture - 09/21/16 14:15 Methicillin resistant Staphylococcus aureus (MRSA) scr eening culture NEG NRG PT panel in platelet poor plasma by coag ulation assay - 09/23/16 09:20 Prothrombin time (PT) in platelet poor plasma by coagu lation assay 12.8 s 12.2-14.7 INR in platelet poor plasma or blood by coagulation as say 1.0 0.8-1.4 Activated partial thromboplastin time (a PTT) in platelet poor plasma bycoagulation assay - 09/23/16 09:20 Activated partial thromboplastin time (a PTT) in platelet poor plasma bycoagulation assay 53 s 24-35 Capillary blood glucose measurement by g lucometer (mass/volume) - 09/23/16 09:22 Capillary blood glucose measurement by glucometer (mas s/volume) 103 mg/dL 70-110 Protime - 09/28/16 08:21 INR 1.0 1.0-4.0 Protime 11.1 Sec 9.9-12.8 Protime - 10/10/16 11:12 INR 2.9 1.0-4.0 Protime 35.6 Sec 9.9-12.8 Protime - 10/26/16 13:25 INR 1.0 1.0-4.0 Protime 12.1 Sec 9.9-12.8 Lipid Panel - 11/04/16 08:47 C/HDL 2.9 3.7-6.7 Cholesterol 149 mg/dL 100-240 HDL 52 mg/dL 30-85 LDL-Calculated 81 mg/dL 0-100 Trig 81 mg/dL 35-160 VLDL 16 mg/dL 0-42 Hepatic Panel - 11/04/16 08:47 Albumin 4.6 g/dL 3.6-5.1 ALP 100 U/L 35-130 ALT 28 U/L 6-45 AST 32 U/L 2-40 DBil 0.2 mg/dL 0.0-0.2 GGT 22 U/L 5-40 Globulin 2.9 g/dL 2.3-3.5 TBil 0.3 mg/dL 0.2-1.2 TP 7.5 g/dL 6.0-8.3 Protime - 11/27/16 10:10 INR 1.5 1.0-4.0 Protime 17.2 Sec 9.9-12.8 Protime - 12/21/16 13:06 INR 1.5 1.0-4.0 Protime 17.9 Sec 9.9-12.8 Urinalysis - 03/08/17 11:17 Icotest N/A Negative Urine Volume Urine Volume Sufficient (10mL) Urine-Appearance Clear Clear Urine-Bacteria 1+ Urine-Bilirubin Negative Negative Urine-Blood Trace-intact Negative Urine-Color Yellow Colorless-[place] ow Urine-Epithelial Cells 0-5/HPF Urine-Glucose Negative Negative Urine-Ketones Negative Negative Urine-Leukocytes Negative Negative Urine-Nitrite Negative Negative Urine-Other Urine Saved if Culture Need ed (48hrs from time of collection) Urine-pH 5.5 5-8.5 Urine-Protein Negative Negative Urine-RBC 0-2/HPF Urine-Specific Hitchcock <=1.005 1.000-1 .030 Urine-WBC 0-2/HPF Urobilinogen 0.2 E.U./dL 0.2-1.0 CBC with Auto Diff - 03/10/17 15:19 Baso% 0.20 % 0.00-2.50 Eos 0.1 K/uL 0.0-0.7 Eos% 1.0 % 0.0-7.0 Hct 41.8 % 36.0-46.0 Hgb 13.5 g/dL 13.0-15.0 Lym 1.38 K/uL 0.60-3.40 Lym% 11.5 % 10.0-50.0 MCH 26.9 pg 27.0-31.0 MCHC 32.3 g/dL 32.0-36.0 MCV 83.4 fL 80.0-97.0 Tama% 5.5 % 0.0-12.0 MPV 10.9 fL 7.4-10.0 Gio% 81.8 % 37.0-80.0 Plt 217 K/uL 150-400 RBC 5.01 M/uL 3.60-5.00 RDW 15.6 % 11.6-14.8 WBC 11.99 K/uL 5.00-10.00 Gio 9.81 K/uL 2.00-6.90 Tama 0.7 K/uL 0.0-0.9 Baso 0.0 K/uL 0.0-0.2 Troponin I - 03/10/17 15:20 Troponin <0.020 ng/mL 0.0-0.4 Cortisol - AM - 03/11/17 07:15 Cortisol - AM 16.7 ug/dL 6.2-19.4 Sed Rate - 03/11/17 07:15 Sed Rate 14 mm/hr 9-15 Cortisol - AM - 03/11/17 07:15 CORTISOL - AM 16.7 UG/DL 6.2-19.4 Comprehensive Metabolic Panel - 03/12/17 06:21 Albumin 4.0 g/dL 3.6-5.1 ALP 122 U/L 35-130 ALT 25 U/L 6-45 Anion Gap 13 6-14 AST 25 U/L 2-40 BUN 16 mg/dL 5-25 Calcium 9.0 mg/dL 8.3-10.4 Chloride 104 mmol/L 95-114 CO2 24 mEq/L 22-33 Creat 1.01 mg/dL 0.50-1.50 eGFR 55 mL/min/1.73m2 >59 Globulin 2.4 g/dL 2.3-3.5 Glucose 99 mg/dL 70-110 Osmo 284 280-295 Potassium 3.9 mmol/L 3.5-5.3 Sodium 137 mmol/L 134-148 TBil 0.9 mg/dL 0.2-1.2 TP 6.4 g/dL 6.0-8.3 Complete urinalysis with reflex to cultu re - 01/18/19 12:41 Urine color determination YELLOW NRG Urine clarity determination CLEAR NR G Urine pH measurement by test strip 5.5 5-9 Specific gravity of urine by test strip 1.025 1.016-1.022 Urine protein assay by test strip, semi-quantitative NEGATIVE NEGATIVE Urine glucose detection by automated test strip NE GATIVE NEGATIVE Erythrocytes detection in urine sediment by light micr oscopy NEGATIVE NEGATIVE Urine ketones detection by automated test strip NE GATIVE NEGATIVE Urine nitrite detection by test strip NEGATIVE NEGATIVE Urine total bilirubin detection by test strip NEGA TIVE NEGATIVE Urine urobilinogen measurement by automated test strip (mass/volume) 0.2 mg/dL < = 1.0 Urine leukocyte esterase detection by dipstick NEG ATIVE NEGATIVE Automated urine sediment erythrocyte cou nt by microscopy (number/high power field) NONE NRG Automated urine sediment leukocyte count by microscopy (number/high power field) NONE NRG Bacteria detection in urine sediment by light microsco py TRACE NRG Squamous epithelial cells detection in u rine sediment by light microscopy 2-5 NRG Crystals detection in urine sediment by light microsco py NONE NRG Casts detection in urine sediment by light microscopy NONE NRG Mucus detection in urine sediment by light microscopy NEGATIVE NRG Complete urinalysis with reflex to culture NO NRG Automated blood complete blood count ( mogram) panel - 01/18/19 12:47 Blood leukocytes automated count (number/volume) 5.3 10*3/uL 4.3-11.0 Blood erythrocytes automated count (number/volume) 5.03 10*6/uL 4.35-5.85 Venous blood hemoglobin measurement (mass/volume) 13.2 g/dL 11.5-16.0 Blood hematocrit (volume fraction) 42 % 35-52 Automated erythrocyte mean corpuscular volume 83 [ foz_us] 80-99 Automated erythrocyte mean corpuscular h emoglobin (mass per erythrocyte) 26 pg 25-34 Automated erythrocyte mean corpuscular h emoglobin concentration measurement (mass/volume) 32 g/dL 32-36 Automated erythrocyte distribution width ratio 16. 3 % 10.0- 14.5 Automated blood platelet count (count/volume) 231 10*3/uL 130-400 Automated blood platelet mean volume measurement 10.3 [foz_us] 7.4-10.4 PT panel in platelet poor plasma by coag ulation assay - 01/18/19 12:47 Prothrombin time (PT) in platelet poor plasma by coagu lation assay 14.5 s 12.2-14.7 INR in platelet poor plasma or blood by coagulation as say 1.1 0.8-1.4 Activated partial thromboplastin time (a PTT) in platelet poor plasma bycoagulation assay - 01/18/19 12:47 Activated partial thromboplastin time (a PTT) in platelet poor plasma bycoagulation assay 84 s 24-35 Comprehensive metabolic panel - 01/18/19 12:47 Serum or plasma sodium measurement (moles/volume) 141 mmol/L 135-145 Serum or plasma potassium measurement (moles/volume) 3.7 mmol/L 3.6-5.0 Serum or plasma chloride measurement (moles/volume) 106 mmol/L 98-107 Carbon dioxide 27 mmol/L 21-32 Serum or plasma anion gap determination (moles/volume) 8 mmol/L 5-14 Serum or plasma urea nitrogen measurement (mass/volume ) 14 mg/dL 7-18 Serum or plasma creatinine measurement (mass/volume) 1.05 mg/dL 0.60-1.30 Serum or plasma urea nitrogen/creatinine mass ratio 13 NRG Serum or plasma creatinine measurement w ith calculation of estimated glomerular filtration rate 52 NRG Serum or plasma glucose measurement (mass/volume) 82 mg/dL 70-105 Serum or plasma calcium measurement (mass/volume) 9.8 mg/dL 8.5-10.1 Serum or plasma total bilirubin measurement (mass/volu me) 0.7 mg/dL 0.1-1.0 Serum or plasma alkaline phosphatase deandra surement (enzymatic activity/volume) 181 U/L 40-136 Serum or plasma aspartate aminotransfera se measurement (enzymatic activity/volume) 67 U/L 5-34 Serum or plasma alanine aminotransferase measurement (enzymatic activity/volume) 62 U/L 0-55 Serum or plasma protein measurement (mass/volume) 7.7 g/dL 6.4-8.2 Serum or plasma albumin measurement (mass/volume) 4.4 g/dL 3.2-4.5 CALCIUM CORRECTED 9.5 mg/dL 8.5-10.1 Lipid 1996 panel - 01/18/19 12:47 Serum or plasma triglyceride measurement (mass/volume) 113 mg/dL <150 Serum or plasma cholesterol measurement (mass/volume) 159 mg/dL < 200 Serum or plasma cholesterol in HDL measurement (mass/v olume) 57 mg/dL 40-60 Cholesterol in LDL [mass/volume] in serum or plasma by direct assay 76 mg/dL 1-129 Serum or plasma cholesterol in VLDL measurement (mass/ volume) 23 mg/dL 5-40 Methicillin resistant Staphylococcus aur eus (MRSA) screening culture - 01/18/19 12:47 Methicillin resistant Staphylococcus aureus (MRSA) scr eening culture NEG NRG Complete urinalysis with reflex to cultu re - 07/25/19 13:35 Urine color determination YELLOW NRG Urine clarity determination CLEAR NR G Urine pH measurement by test strip 5.5 5-9 Specific gravity of urine by test strip 1.020 1.016-1.022 Urine protein assay by test strip, semi-quantitative NEGATIVE NEGATIVE Urine glucose detection by automated test strip NE GATIVE NEGATIVE Erythrocytes detection in urine sediment by light micr oscopy NEGATIVE NEGATIVE Urine ketones detection by automated test strip NE GATIVE NEGATIVE Urine nitrite detection by test strip NEGATIVE NEGATIVE Urine total bilirubin detection by test strip NEGA TIVE NEGATIVE Urine urobilinogen measurement by automated test strip (mass/volume) 0.2 mg/dL < = 1.0 Urine leukocyte esterase detection by dipstick NEG ATIVE NEGATIVE Automated urine sediment erythrocyte cou nt by microscopy (number/high power field) NONE NRG Automated urine sediment leukocyte count by microscopy (number/high power field) RARE NRG Bacteria detection in urine sediment by light microsco py NEGATIVE NRG Squamous epithelial cells detection in u rine sediment by light microscopy 2-5 NRG Crystals detection in urine sediment by light microsco py NONE NRG Casts detection in urine sediment by light microscopy NONE NRG Mucus detection in urine sediment by light microscopy NEGATIVE NRG Complete urinalysis with reflex to culture NO NRG Complete blood count (CBC) with automate d white blood cell (WBC) differential - 07/25/19 13:35 Blood leukocytes automated count (number/volume) 5.2 10*3/uL 4.3-11.0 Blood erythrocytes automated count (number/volume) 5.03 10*6/uL 4.35-5.85 Venous blood hemoglobin measurement (mass/volume) 12.8 g/dL 11.5-16.0 Blood hematocrit (volume fraction) 41 % 35-52 Automated erythrocyte mean corpuscular volume 81 [ foz_us] 80-99 Automated erythrocyte mean corpuscular h emoglobin (mass per erythrocyte) 25 pg 25-34 Automated erythrocyte mean corpuscular h emoglobin concentration measurement (mass/volume) 32 g/dL 32-36 Automated erythrocyte distribution width ratio 16. 4 % 10.0- 14.5 Automated blood platelet count (count/volume) 276 10*3/uL 130-400 Automated blood platelet mean volume measurement 10.7 [foz_us] 7.4-10.4 Automated blood neutrophils/100 leukocytes 63 % 42-75 Automated blood lymphocytes/100 leukocytes 25 % 12-44 Blood monocytes/100 leukocytes 8 % 0-12 Automated blood eosinophils/100 leukocytes 4 % 0-10 Automated blood basophils/100 leukocytes 1 % 0-10 Blood neutrophils automated count (number/volume) 3.2 10*3 1.8-7.8 Blood lymphocytes automated count (number/volume) 1.3 10*3 1.0-4.0 Blood monocytes automated count (number/volume) 0. 4 10*3 0.0-1.0 Automated eosinophil count 0.2 10*3/uL 0 .0-0.3 Automated blood basophil count (count/volume) 0.1 10*3/uL 0.0-0.1 Comprehensive metabolic panel - 07/25/19 13:35 Serum or plasma sodium measurement (moles/volume) 141 mmol/L 135-145 Serum or plasma potassium measurement (moles/volume) 3.8 mmol/L 3.6-5.0 Serum or plasma chloride measurement (moles/volume) 106 mmol/L 98-107 Carbon dioxide 24 mmol/L 21-32 Serum or plasma anion gap determination (moles/volume) 11 mmol/L 5-14 Serum or plasma urea nitrogen measurement (mass/volume ) 20 mg/dL 7-18 Serum or plasma creatinine measurement (mass/volume) 0.96 mg/dL 0.60-1.30 Serum or plasma urea nitrogen/creatinine mass ratio 21 NRG Serum or plasma creatinine measurement w ith calculation of estimated glomerular filtration rate 58 NRG Serum or plasma glucose measurement (mass/volume) 90 mg/dL 70-105 Serum or plasma calcium measurement (mass/volume) 9.4 mg/dL 8.5-10.1 Serum or plasma total bilirubin measurement (mass/volu me) 0.5 mg/dL 0.1-1.0 Serum or plasma alkaline phosphatase deandra surement (enzymatic activity/volume) 115 U/L 40-136 Serum or plasma aspartate aminotransfera se measurement (enzymatic activity/volume) 24 U/L 5-34 Serum or plasma alanine aminotransferase measurement (enzymatic activity/volume) 19 U/L 0-55 Serum or plasma protein measurement (mass/volume) 7.5 g/dL 6.4-8.2 Serum or plasma albumin measurement (mass/volume) 4.0 g/dL 3.2-4.5 CALCIUM CORRECTED 9.4 mg/dL 8.5-10.1 Blood type T Indirect antibody screen [facility] - 07/25/19 13:35 ABO+Rh group ON NRG Blood group antibody screen NEGATIVE NR G Erythrocyte sedimentation rate by claudio gren method - 07/25/19 13:35 Erythrocyte sedimentation rate by westergren method 18 mm 0- 30 Methicillin resistant Staphylococcus aur eus (MRSA) screening culture - 07/25/19 13:35 Methicillin resistant Staphylococcus aureus (MRSA) scr eening culture NEG NRG Coronavirus SARS-CoV-2 SO 2018 - 0 13:01 Coronavirus Ab [Units/volume] in Serum Negative Negative Capillary blood glucose measurement by g lucometer (mass/volume) - 08/02/19 06:15 Capillary blood glucose measurement by glucometer (mas s/volume) 128 mg/dL 70-110 PT panel in platelet poor plasma by coag ulation assay - 08/02/19 06:30 Prothrombin time (PT) in platelet poor plasma by coagu lation assay 13.2 s 12.2-14.7 INR in platelet poor plasma or blood by coagulation as say 1.0 0.8-1.4 Blood type T Indirect antibody screen [facility] - 08/02/19 06:30 WRISTBAND NUMBER [id number] NRG ABO+Rh group ON NRG Blood group antibody screen NEGATIVE NR G Capillary blood glucose measurement by g lucometer (mass/volume) - 08/02/19 20:35 Capillary blood glucose measurement by glucometer (mas s/volume) 147 mg/dL 70-110 Capillary blood glucose measurement by g lucometer (mass/volume) - 08/03/19 05:03 Capillary blood glucose measurement by glucometer (mas s/volume) 115 mg/dL 70-110 Whole blood hemoglobin and hematocrit [facility] - 08/03/19 05:50 Venous blood hemoglobin measurement (mass/volume) 9.1 g/dL 11.5-16.0 Blood hematocrit (volume fraction) 29 % 35-52 Serum or plasma creatinine measurement ( mass/volume) - 08/03/19 05:50 Serum or plasma creatinine measurement (mass/volume) 1.08 mg/dL 0.60-1.30 Capillary blood glucose measurement by g lucometer (mass/volume) - 08/03/19 11:42 Capillary blood glucose measurement by glucometer (mas s/volume) 105 mg/dL 70-110 Capillary blood glucose measurement by g lucometer (mass/volume) - 08/03/19 16:06 Capillary blood glucose measurement by glucometer (mas s/volume) 104 mg/dL 70-110 Capillary blood glucose measurement by g lucometer (mass/volume) - 08/03/19 20:59 Capillary blood glucose measurement by glucometer (mas s/volume) 90 mg/dL 70-110 PT panel in platelet poor plasma by coag ulation assay - 08/03/19 21:40 Prothrombin time (PT) in platelet poor plasma by coagu lation assay 14.4 s 12.2-14.7 INR in platelet poor plasma or blood by coagulation as say 1.1 0.8-1.4 Capillary blood glucose measurement by g lucometer (mass/volume) - 08/04/19 05:29 Capillary blood glucose measurement by glucometer (mas s/volume) 121 mg/dL 70-110 Whole blood hemoglobin and hematocrit [facility] - 08/04/19 06:00 Venous blood hemoglobin measurement (mass/volume) 9.4 g/dL 11.5-16.0 Blood hematocrit (volume fraction) 29 % 35-52 Serum or plasma creatine kinase MB measu rement (enzymatic activity/volume) - 08/04/19 06:00 Serum or plasma creatine kinase MB measu rement (enzymatic activity/volume) 5.4 ng/mL <6.6 Serum or plasma troponin i.cardiac measu rement (mass/volume) - 08/04/19 06:00 Serum or plasma troponin i.cardiac measurement (mass/v olume) 0.823 ng/mL <0.028 Myoglobin, serum - 08/04/19 06:00 Myoglobin, serum 91.3 ng/mL 10.0-92.0 Complete blood count (CBC) with automate d white blood cell (WBC) differential - 08/04/19 10:50 Blood leukocytes automated count (number/volume) 7.7 10*3/uL 4.3-11.0 Blood erythrocytes automated count (number/volume) 3.75 10*6/uL 4.35-5.85 Venous blood hemoglobin measurement (mass/volume) 9.7 g/dL 11.5-16.0 Blood hematocrit (volume fraction) 30 % 35-52 Automated erythrocyte mean corpuscular volume 80 [ foz_us] 80-99 Automated erythrocyte mean corpuscular h emoglobin (mass per erythrocyte) 26 pg 25-34 Automated erythrocyte mean corpuscular h emoglobin concentration measurement (mass/volume) 32 g/dL 32-36 Automated erythrocyte distribution width ratio 15. 8 % 10.0- 14.5 Automated blood platelet count (count/volume) 99 1 0*3/uL 130-400 Automated blood platelet mean volume measurement 10.0 [foz_us] 7.4-10.4 Automated blood neutrophils/100 leukocytes 76 % 42-75 Automated blood lymphocytes/100 leukocytes 12 % 12-44 Blood monocytes/100 leukocytes 8 % 0-12 Automated blood eosinophils/100 leukocytes 4 % 0-10 Automated blood basophils/100 leukocytes 0 % 0-10 Blood neutrophils automated count (number/volume) 5.9 10*3 1.8-7.8 Blood lymphocytes automated count (number/volume) 0.9 10*3 1.0-4.0 Blood monocytes automated count (number/volume) 0. 6 10*3 0.0-1.0 Automated eosinophil count 0.3 10*3/uL 0 .0-0.3 Automated blood basophil count (count/volume) 0.0 10*3/uL 0.0-0.1 Comprehensive metabolic panel - 08/04/19 10:50 Serum or plasma sodium measurement (moles/volume) 133 mmol/L 135-145 Serum or plasma potassium measurement (moles/volume) 3.8 mmol/L 3.6-5.0 Serum or plasma chloride measurement (moles/volume) 102 mmol/L 98-107 Carbon dioxide 24 mmol/L 21-32 Serum or plasma anion gap determination (moles/volume) 7 mmol/L 5-14 Serum or plasma urea nitrogen measurement (mass/volume ) 14 mg/dL 7-18 Serum or plasma creatinine measurement (mass/volume) 0.81 mg/dL 0.60-1.30 Serum or plasma urea nitrogen/creatinine mass ratio 17 NRG Serum or plasma creatinine measurement w ith calculation of estimated glomerular filtration rate > NRG Serum or plasma glucose measurement (mass/volume) 99 mg/dL 70-105 Serum or plasma calcium measurement (mass/volume) 8.3 mg/dL 8.5-10.1 Serum or plasma total bilirubin measurement (mass/volu me) 0.6 mg/dL 0.1-1.0 Serum or plasma alkaline phosphatase deandra surement (enzymatic activity/volume) 113 U/L 40-136 Serum or plasma aspartate aminotransfera se measurement (enzymatic activity/volume) 32 U/L 5-34 Serum or plasma alanine aminotransferase measurement (enzymatic activity/volume) 34 U/L 0-55 Serum or plasma protein measurement (mass/volume) 6.3 g/dL 6.4-8.2 Serum or plasma albumin measurement (mass/volume) 3.4 g/dL 3.2-4.5 CALCIUM CORRECTED 8.8 mg/dL 8.5-10.1 Capillary blood glucose measurement by g lucometer (mass/volume) - 08/04/19 11:24 Capillary blood glucose measurement by glucometer (mas s/volume) 118 mg/dL 70-110 Capillary blood glucose measurement by g lucometer (mass/volume) - 08/04/19 15:43 Capillary blood glucose measurement by glucometer (mas s/volume) 113 mg/dL 70-110 Capillary blood glucose measurement by g lucometer (mass/volume) - 08/04/19 20:38 Capillary blood glucose measurement by glucometer (mas s/volume) 124 mg/dL 70-110 Automated blood complete blood count (he mogram) panel - 08/05/19 06:07 Blood leukocytes automated count (number/volume) 7.2 10*3/uL 4.3-11.0 Blood erythrocytes automated count (number/volume) 3.61 10*6/uL 4.35-5.85 Venous blood hemoglobin measurement (mass/volume) 9.3 g/dL 11.5-16.0 Blood hematocrit (volume fraction) 29 % 35-52 Automated erythrocyte mean corpuscular volume 81 [ foz_us] 80-99 Automated erythrocyte mean corpuscular h emoglobin (mass per erythrocyte) 26 pg 25-34 Automated erythrocyte mean corpuscular h emoglobin concentration measurement (mass/volume) 32 g/dL 32-36 Automated erythrocyte distribution width ratio 16. 1 % 10.0- 14.5 Automated blood platelet count (count/volume) 118 10*3/uL 130-400 Automated blood platelet mean volume measurement 10.0 [foz_us] 7.4-10.4 PT panel in platelet poor plasma by coag ulation assay - 08/05/19 06:07 Prothrombin time (PT) in platelet poor plasma by coagu lation assay 13.8 s 12.2-14.7 INR in platelet poor plasma or blood by coagulation as say 1.0 0.8-1.4 Comprehensive metabolic panel - 08/05/19 06:07 Serum or plasma sodium measurement (moles/volume) 136 mmol/L 135-145 Serum or plasma potassium measurement (moles/volume) 3.8 mmol/L 3.6-5.0 Serum or plasma chloride measurement (moles/volume) 102 mmol/L 98-107 Carbon dioxide 24 mmol/L 21-32 Serum or plasma anion gap determination (moles/volume) 10 mmol/L 5-14 Serum or plasma urea nitrogen measurement (mass/volume ) 11 mg/dL 7-18 Serum or plasma creatinine measurement (mass/volume) 0.89 mg/dL 0.60-1.30 Serum or plasma urea nitrogen/creatinine mass ratio 12 NRG Serum or plasma creatinine measurement w ith calculation of estimated glomerular filtration rate > NRG Serum or plasma glucose measurement (mass/volume) 84 mg/dL 70-105 Serum or plasma calcium measurement (mass/volume) 8.5 mg/dL 8.5-10.1 Serum or plasma total bilirubin measurement (mass/volu me) 0.7 mg/dL 0.1-1.0 Serum or plasma alkaline phosphatase deandra surement (enzymatic activity/volume) 108 U/L 40-136 Serum or plasma aspartate aminotransfera se measurement (enzymatic activity/volume) 28 U/L 5-34 Serum or plasma alanine aminotransferase measurement (enzymatic activity/volume) 26 U/L 0-55 Serum or plasma protein measurement (mass/volume) 6.1 g/dL 6.4-8.2 Serum or plasma albumin measurement (mass/volume) 3.2 g/dL 3.2-4.5 CALCIUM CORRECTED 9.1 mg/dL 8.5-10.1 Serum or plasma troponin i.cardiac measu rement (mass/volume) - 08/05/19 06:07 Serum or plasma troponin i.cardiac measurement (mass/v olume) 0.631 ng/mL <0.028 Capillary blood glucose measurement by g lucometer (mass/volume) - 08/05/19 10:55 Capillary blood glucose measurement by glucometer (mas s/volume) 76 mg/dL 70-110 Protime - 08/10/19 14:45 INR 2.8 1.0-4.0 Protime 33.1 Sec 9.9-12.8 Protime - 08/14/19 10:40 INR 2.5 1.0-4.0 Protime 29.4 Sec 9.9-12.8 Encounters ACCT No. Visit Date/Time Discharge Status Pt. Type Provider Facility Loc./Unit Complaint [id number] 03/12/2017 13:18:00 Document Registration [id number] 12/28/2016 10:46:56 12/28/2016 23:59:5 9 CLS Outpatient [id number] 08/08/2019 15:36:00 23:59:59 CLS Outpatient BEN GARCIA MD [facility] RAD L TKA W/ POST OP DVT [id number] 08/02/2019 06:01:00 11:57:00 DIS Inpatient BEN GARCIA MD [facility] 4TH OSTEOARTHRITIS LEFT KNE E [id number] 08/04/2019 08:58:00 23:59:59 CLS Preadmit [facility] DO TKA [id number] 07/25/2019 13:15:00 14:30:00 DIS Outpatient BEN GARCIA MD [facility] PREOP OSTEOARTHRITIS LEFT KN EE [id number] 01/18/2019 12:22:00 21:45:00 DIS Outpatient DYLAN SAHU MD [facility] CATH ABN STRESS TEST [id number] 01/11/2019 12:20:00 23:59:59 CLS Outpatient DYLAN SAHU MD [facility] CARD HTN,ANTERIOR CHEST WALL PAIN [id number] 12/09/2018 11:04:00 23:59:59 CLS Outpatient MELODIE MCKEON APRN [facility] RAD SEVERE HEADACHE [id number] 06/03/2018 08:18:00 09:40:00 DIS Outpatient KATIUSKA SPANN MD [facility] SDC CATARACT RIGHT [id number] 06/01/2018 05:40:00 13:35:00 DIS Outpatient KATIUSKA SPANN MD [facility] PREOP CATARACT RIGHT [id number] 05/25/2018 11:26:00 12:50:00 DIS Outpatient KATIUSKA SPANN MD [facility] SDC CATARTACT LEFT EYE [id number] 05/24/2018 05:42:00 10:22:00 DIS Outpatient KATIUSKA SPANN MD [facility] PREOP CATARACT LEFT EYE [id number] 07/13/2017 07:37:00 23:59:59 CLS Outpatient RACHAEL MCKEON MD [facility] RAD ADRENAL ABNORMALITY [id number] 03/09/2017 08:14:00 23:59:59 CLS Outpatient ROBIN MYERS [facility] RAD PRIMARY OA [id number] 10/19/2016 08:17:00 08/21/2 017 23:59:59 CLS Outpatient DYLAN SAHU MD [facility] CARD APS D68.61,MIXED HLP E7 8.2 [id number] 2016 07:38:00 017 23:59:59 CLS Outpatient DYLAN SAHU MD [facility] CARD APS D68.61,MIXED HLP E7 8.2 [id number] 09/23/2016 09:05:00 017 14:04:00 DIS Outpatient BLANCHO DPMINES [facility] PAINFULL HARDWARE RIGH T ANKLE HARDWARE [id number] 09/21/2016 05:40:00 017 14:37:00 DIS Outpatient BLANCHO DPMINES [facility] PREOP PAINFULL HARDWARE RIGH T ANKLE HARDWARE [id number] 02/19/2016 13:59:00 016 13:26:00 DIS Inpatient ROSA MARIA BERMUDEZ DO [facility] 4TH FX RIGHT LATERA L ANKLE [id number] 01/27/2016 08:55:00 016 11:50:00 DIS Outpatient NEELAM GRIFFITH MD [facility] SCREENING [id number] 01/22/2016 05:40:00 016 13:29:00 DIS Outpatient NEELAM GRIFFITH MD [facility] PREOP SCREENING [id number] 10/06/2019 10:00:00 P KATIUSKA Handy MD [facility] YAG 10/201609/23/2016 11:38:00 09/23/2016 23:59 :59 CLS Outpatient Rosa Maria Bermudez [id number] 11/29/2015 11:40:51 11/29/2015 23:59:5 9 CLS Outpatient [id number] 08/08/2019 08:28:00 08/16/2019 07:09 :00 DIS Outpatient BEN GARCIA [id number] 08/14/2019 11:00:00 08/14/2019 23:59 :00 DIS Outpatient JEVON COLEMAN [id number] 08/10/2019 14:38:00 08/10/2019 23:59 :00 DIS Outpatient JEVON COLEMAN [id number] 02/01/2019 12:06:00 02/01/2019 23:59 :00 DIS Outpatient JEVON COLEMAN [id number] 10/04/2018 14:25:00 10/04/2018 23:59: 00 DIS Outpatient JEVON COLEMAN [id number] 08/17/2017 12:37:00 08/17/2017 23:59: 00 DIS Outpatient JEVON COLEMAN [id number] 03/10/2017 14:50:00 03/12/2017 17:40: 00 DIS Outpatient [facility] MED-SURG [id number] 03/08/2017 11:15:00 03/08/2017 23:59: 00 DIS Outpatient JEVON COLEMAN [id number] 12/21/2016 13:01:00 12/21/2016 23:59: 00 DIS Outpatient Rosa Maria Bermudez [id number] 11/27/2016 10:07:00 11/27/2016 23:59: 00 DIS Outpatient Rosa Maria Bermudez [id number] 10/14/2016 13:25:00 11/13/2016 16:00: 00 DIS Outpatient INES SANTILLAN [id number] 11/04/2016 08:44:00 11/04/2016 23:59: 00 DIS Outpatient DYLAN SAHU [id number] 10/26/2016 13:21:00 10/26/2016 23:59: 00 DIS Outpatient Rosa Maria Bermudez [id number] 10/10/2016 11:12:00 10/10/2016 23:59: 00 DIS Outpatient Rosa Maria Bermudez [id number] 09/28/2016 08:18:00 09/28/2016 23:59: 00 DIS Outpatient Rosa Maria Bermudez [id number] 08/18/2016 12:30:00 08/18/2016 23:59: 00 DIS Outpatient Rosa Maria Bermudez [id number] 07/30/2016 13:50:00 07/30/2016 23:59: 00 DIS Outpatient Rosa Maria Bermudez [id number] 07/22/2016 08:50:00 07/22/2016 13:00: 00 [id number] 07/06/2016 10:10:00 07/06/2016 23:59: 00 DIS Outpatient Rosa Maria Bermudez [id number] 04/07/2016 09:28:00 06/23/2016 14:45: 00 DIS Outpatient TYRELL INES [id number] 06/16/2016 13:24:00 06/16/2016 23:59: 00 DIS Outpatient Rosa Maria Bermudez [id number] 06/01/2016 08:34:00 06/01/2016 23:59: 00 DIS Outpatient hSyamndRosa Maria umanzor [id number] 05/18/2016 09:43:00 05/18/2016 23:59: 00 DIS Outpatient Rosa Maria Bermudez [id number] 05/04/2016 17:17:00 05/04/2016 23:59: 00 DIS Outpatient Rosa Maria Bermudez [id number] 04/28/2016 12:55:00 04/28/2016 23:59: 00 DIS Outpatient Rosa Maria Bermudez [id number] 04/07/2016 09:32:00 04/07/2016 23:59: 00 DIS Outpatient ShyamndRosa Maria umanzor [id number] 03/26/2016 13:10:00 03/26/2016 23:59: 00 DIS Outpatient Rosa Maria Bermudez [id number] 03/12/2016 08:57:00 03/12/2016 23:59: 00 DIS Outpatient Rosa Maria Bermudez [id number] 03/10/2016 10:02:00 03/10/2016 23:59: 00 DIS Outpatient Rosa Maria Bermudez [id number] 03/04/2016 08:48:00 03/04/2016 09:56: 00 DIS Outpatient Rip [facility] ER [id number] 03/03/2016 11:30:00 03/03/2016 23:59: 00 DIS Outpatient Rosa Maria Bermudez [id number] 02/29/2016 10:22:00 02/29/2016 12:42: 00 DIS Outpatient Dharmesh [facility] ER [id number] 02/26/2016 12:37:00 02/26/2016 23:59: 00 DIS Outpatient Rosa Maria eBrmudez [id number] 02/17/2016 18:33:00 02/17/2016 20:40: 00 DIS Outpatient Odette [facility] [id number] 01/21/2016 09:13:00 01/21/2016 23:59: 00 DIS Outpatient Rosa Maria Bermudez [id number] 08/21/2019 09:38:50 Document Registration [id number] 02/17/2016 19:22:28 Document Registration
--- NOTE | 2019-10-06 07:29 | Ophthalmologist Pre-Op Note ---
Pre-Operative Progress Note H&P Reviewed The H&P was reviewed, patient examined and no changes noted. Date H&P Reviewed: Oct 06, 2019 Time H&P Reviewed: 07:20 Pre-Op Dx Secondary Cataract, Bilateral Eyes KATIUSKA SPANN MD Oct 06, 2019 07:29
--- NOTE | 2019-10-06 07:30 | Ophthalmology Operative Report ---
YAG Capsulotomy PREOPERATIVE DIAGNOSIS: Secondary Cataract Bilateral POSTOPERATIVE DIAGNOSIS: Secondary Cataract Bilateral PROCEDURE: YAG Capsulotomy, Bilateral SURGEON: Mike Spann ANESTHESIA: Topical anesthesia COMPLICATIONS: None ESTIMATED BLOOD LOSS: Minimal DESCRIPTION OF PROCEDURE: After proper informed consent was obtained, the patient's, a 68 female , received one drop of Tropicamide and one drop of Tetracaine in each eye. The patient was then placed at the YAG laser and using a power of [3.6 ] millijoules and bursts [18 ] right eye and [ 24] left eye were used to fashion a central capsulotomy. The patient tolerated the procedure well without complications. MIKE SPANN MD Oct 06, 2019 07:30
== END 2019-10-06 07:30 | disposition home or self-care (01) ==
LOC: SDC 06:33
PROVIDERS: ATTEND Specialist
DX: E11.36 Type 2 diabetes mellitus with diabetic cataract (principal); H26.493 Other secondary cataract, bilateral; I10 Essential (primary) hypertension; E03.9 Hypothyroidism, unspecified; F41.9 Anxiety disorder, unspecified; F32.9 Major depressive disorder, single episode, unspecified; M19.90 Unspecified osteoarthritis, unspecified site; Z87.891 Personal history of nicotine dependence; E78.00 Pure hypercholesterolemia, unspecified; Z79.01 Long term (current) use of anticoagulants; Z96.652 Presence of left artificial knee joint; Z79.899 Other long term (current) drug therapy; Z79.890 Hormone replacement therapy; Z79.84 Long term (current) use of oral hypoglycemic drugs

== ENCOUNTER 2020-01-23 11:19 | Outpatient (RCR) | payer MEDICARE, OTHER ==
[~2020-01-23 11:19] MED LIST changes: +CETI10TA17 PO; +FAMO20TA3 PO; +LEVO100T7 PO; -LISI40TA PO; +LISI40TA9 PO; -WARF1TAB82 PO; +WARF4TAB3 PO; -WARF4TAB70 PO; +WARF7.5T3 PO; -WARF7.5T49 PO; +WRF1T PO
[2020-01-23 11:47] LABS: INR 1.2 (0.8-1.4); PROTHROMBIN TIME PATIENT 15.2 SEC (12.2-14.7)
[2020-02-02] MEDS ORDERED: Bethanechol Chl PO (09:06)
[2020-02-02] MEDS ORDERED: ENOX30DI4 SC (09:06)
== END 2020-04-22 | disposition home or self-care (01) ==
LOC: LAB 11:19
PROVIDERS: ATTEND Nurse Practitioner Family
DX: Z79.01 Long term (current) use of anticoagulants (principal)
CPT/HCPCS: 36415; 85610

== ENCOUNTER 2020-01-29 05:31 | Outpatient (RCR) | payer MEDICARE, OTHER ==
[2020-01-17 13:33] LABS: BILIRUBIN,URINE NEGATIVE (NEGATIVE); CLARITY,URINE CLEAR; COLOR,URINE YELLOW; GLUCOSE, URINE (UA) NEGATIVE (NEGATIVE); KETONES,URINE NEGATIVE (NEGATIVE); LEUKOCYTE ESTERASE ,URINE NEGATIVE (NEGATIVE); NITRITE,URINE NEGATIVE (NEGATIVE); PROTEIN,URINE NEGATIVE (NEGATIVE)
[2020-01-17 13:37] LABS: BASOPHILS # (AUTO) 0.1 10^3/uL (0.0-0.1); BASOPHILS % (AUTO) 1 % (0-10); EOSINOPHILS # (AUTO) 0.2 10^3/uL (0.0-0.3); EOSINOPHILS % (AUTO) 3 % (0-10); HEMATOCRIT 42 % (35-52); HEMOGLOBIN 13.1 g/dL (11.5-16.0); LYMPHOCYTES # (AUTO) 1.1 10^3/uL (1.0-4.0); LYMPHOCYTES % (AUTO) 21 % (12-44); MEAN CORPUSCULAR HEMOGLOBIN 26 pg (25-34); MEAN CORPUSCULAR HGB CONC 31 g/dL (32-36); MEAN CORPUSCULAR VOLUME 83 fL (80-99); MEAN PLATELET VOLUME 10.6 fL (9.0-12.2); MONOCYTES # (AUTO) 0.4 10^3/uL (0.0-1.0); MONOCYTES % (AUTO) 7 % (0-12); NEUTROPHILS # (AUTO) 3.6 10^3/uL (1.8-7.8); NEUTROPHILS % (AUTO) 68 % (42-75); PLATELET COUNT 303 10^3/uL (130-400); WHITE BLOOD COUNT 5.3 10^3/uL (4.3-11.0)
[2020-01-17 13:51] LABS: INR 2.5 (0.8-1.4); PROTHROMBIN TIME PATIENT 27.2 SEC (12.2-14.7)
[2020-01-17 13:54] LABS: ALBUMIN 4.2 GM/DL (3.2-4.5); BILIRUBIN,TOTAL 0.4 MG/DL (0.1-1.0); CALCIUM 9.1 MG/DL (8.5-10.1); CREATININE SERUM 1.06 MG/DL (0.60-1.30); POTASSIUM 4.5 MMOL/L (3.6-5.0); TOTAL PROTEIN 7.4 GM/DL (6.4-8.2)
[2020-01-17 13:58] LABS: BACTERIA,URINE NEGATIVE /HPF
[2020-01-17 13:59] LABS: ERYTHROCYTE SEDIMENTATION RATE 1 MM/HR (0-30)
[~2020-01-29] VITALS: Ht 154 cm; Wt 83.3 kg
[~2020-01-29 05:31] MED LIST changes: +LISI40TA PO; -LISI40TA9 PO
== END 2020-01-29 10:43 | disposition home or self-care (01) ==
LOC: PREOP 05:31
PROVIDERS: ATTEND Orthopaedic Surgery
DX: Z01.812 Encounter for preprocedural laboratory examination (principal); M17.11 Unilateral primary osteoarthritis, right knee; Z20.828 Contact with and (suspected) exposure to other viral communicable diseases
CPT/HCPCS: 36415; 80053; 81000; 85025; 85610; 85652; 86850; 86900; 86901; 87081; 87635

== ENCOUNTER 2020-01-31 06:00 | Inpatient (IN) | payer MEDICARE, OTHER ==
--- NOTE | 2020-01-22 09:26 | HISTORY AND PHYSICAL ---
DATE OF SERVICE: ADMISSION HISTORY AND PHYSICAL DATE OF ADMISSION: 01/31/2020. This will be for inpatient admission on 01/31/2020 for right total knee arthroplasty. The patient will require regular inpatient admission due to comorbidities, need for pain management and need for physical therapy due to gait abnormalities. HISTORY OF PRESENT ILLNESS: The patient is a 69-year-old female with longstanding progressive right knee pain. Radiographs reveal severe medial patellofemoral arthrosis. She has undergone treatment with injections, anti-inflammatories and rest without relief. Due to functional impairment and failure to improve with conservative measures, the has patient elected to proceed with surgical intervention. REVIEW OF SYSTEMS: No chest pain, no shortness of breath and no dysuria. PAST MEDICAL HISTORY: Hypertension, hyperlipidemia, diabetes, hypothyroidism, reflux, degenerative disk disease, depression, anxiety and antiphospholipid syndrome. PAST SURGICAL HISTORY: Arterial blood clot excision, left knee arthroscopy, cholecystectomy, left total knee arthroplasty, sling procedure, TMJ, appendectomy, hysterectomy, and right ankle, right knee. FAMILY HISTORY: Significant for hypertension, stroke, coronary artery disease and diabetes. PRIMARY CARE PROVIDER: Dr. Coleman. MEDICATIONS: Omeprazole, levothyroxine, Maxalt, Carm[place], lisinopril, Effexor, Ativan, warfarin, fexofenadine, glipizide and metoprolol. ALLERGIES: PERCOCET, SULFA, CLONAZEPAM, STATINS, , ADHESIVE TAPE and CHOCOLATE. SOCIAL HISTORY: The patient previously smoked 1 pack per day and she drinks alcohol occasionally. PHYSICAL EXAMINATION: GENERAL: The patient is well-developed, well-nourished, in no acute distress. HEENT: Normocephalic and atraumatic. Pupils are equal, round and reactive to light. Oropharynx is clear. NECK: Supple and no lymphadenopathy. LUNGS: Clear to auscultation bilaterally. HEART: Regular rate and rhythm. ABDOMEN: Soft, nontender and nondistended. EXTREMITIES: Right knee demonstrates varus alignment. Range of motion is 0/2/120. She has negative anterior and posterior drawer. No skin lesions are noted and slight effusion. She is tender along the medial joint line. She has patellofemoral crepitus and pain with patellar loading. IMPRESSION: Right knee severe osteoarthritis, unresponsive to conservative measures. PLAN: Right total knee arthroplasty. The risks, benefits, options, ramifications and recovery were discussed at length with the patient. She understands and wishes to proceed. Job ID: [id number] DocumentID: [id number] Dictated Date: 01/22/2020 09:06:26 Lye Bath Operator Date: 01/22/2020 09:26:14 Dictated By: BEN GARCIA MD
[2020-01-31] VITALS (13 sets, daily range): BP systolic 96–205; BP diastolic 42–120
[~2020-01-31] VITALS: Ht 154 cm; Wt 83.3 kg
[2020-01-31] MEDS ORDERED: LACTATED RINGERS 1,000 ML IV PRN ×2 (06:41→08:15)
[2020-01-31] MEDS ORDERED: SCOPOLAMINE 1.5 MG (TRANSDERM-SCOP) PATCH ONE (06:47)
[2020-01-31] MEDS ORDERED: ONDANSETRON 4 MG/2 ML (SDV) Z0FRAN ONE ×2 (06:47→06:58)
[2020-01-31] MEDS ORDERED: MIDAZOLAM 2 MG/2 ML (VERSED) VIAL ONE (06:51)
[2020-01-31] MEDS ORDERED: fentaNYL INJECTION 100 MCG/2 ML AMP ONE ×2 (06:51→08:03)
[2020-01-31] MEDS ORDERED: LIDOCAINE PF 2% 5 ML (XYLOCAINE) VIAL ONE (06:58)
[2020-01-31] MEDS ORDERED: proPOfol 200 MG/20 ML (DIPRIVAN) VIAL IV ONE (06:58)
[2020-01-31] MEDS ORDERED: TRANEXAMIC ACID 100 MG/ML 10 ML INJECTION ONE (06:59)
[2020-01-31] MEDS ORDERED: SEVOFLURANE (ULTANE) 15 ML INHAL SOLN ONE ×5 (06:59→08:47)
[2020-01-31 07:00] LABS: PROTHROMBIN TIME PATIENT 13.1 SEC (12.2-14.7)
[2020-01-31] MEDS ORDERED: CEFUROXIME INJECTION 1,500 MG in WATER (STERILE) FOR INJECTION 15 ML IV ONE (07:00)
[2020-01-31] MEDS ORDERED: FAMOTIDINE 20MG/2ML IV (PEPCID) IV ONE (07:00)
[2020-01-31] MEDS ORDERED: ONDANSETRON 4 MG/2 ML (SDV) Z0FRAN IVP PRN ×2 (07:30→09:30)
[2020-01-31] MEDS ORDERED: diphenhydrAMINE 50 MG/ML INJ (BENADRYL) IVP PRN (07:30)
[2020-01-31] MEDS ORDERED: morphine PCA 100 MG/100 ML BAG IV PRN (07:30)
--- NOTE | 2020-01-31 07:32 | Progress Note-Pre Operative ---
Pre-Operative Progress Note H&P Reviewed The H&P was reviewed, patient examined and no changes noted. Date Seen by Provider: Jan 31, 2020 Time Seen by Provider: 07:15 Date H&P Reviewed: Jan 31, 2020 Time H&P Reviewed: 07:11 Pre-Operative Diagnosis: right knee primary osteoarthritis BEN GARCIA MD Jan 31, 2020 07:32
--- NOTE | 2020-01-31 07:32 | Progress Note-Post Operative ---
Post-Operative Progess Note Surgeon (s)/Telecom Field Technician (s) Surgeon BEN GARCIA MD Telecom Field Technician: Arsenio Mast Pre-Operative Diagnosis right knee primary osteoarthritis Post-Operative Diagnosis right knee primary osteoarthritis Procedure & Operative Findings Date of Procedure 01/31/20 Procedure Performed/Findings right total knee arthroplasty Anesthesia Type GETA Estimated Blood Loss Estimated blood loss (mL): minimal Specimens/Packing Specimens Removed none Packing: none BEN GARCIA MD Jan 31, 2020 07:32
--- NOTE | 2020-01-31 07:35 | D/C HH Face to Face Order ---
D/C Face to Face Orders Reconcile Patient Problems Problems Reviewed?: Yes Instructions for Patient Via [employer], Patient Instructions/FollowUp: three weeks Physician to follow Patient: three weeks Discharge Diet for Home: Regular Diet Patient Data-Allergies,Ht & Wt Patient Allergies: Coded Allergies: Sulfa (Sulfonamide Antibiotics) (Verified Allergy, Intermediate, GI UPSET, 01/17/20) acetaminophen (Verified Allergy, Intermediate, "FEELS BAD", 01/31/20) patient states may take this chocolate flavor (Verified Allergy, Intermediate, MIGRAINES, 01/17/20) oxycodone (Verified Allergy, Intermediate, "FEELS BAD", 01/31/20) patient states may take this Rfcvjax-Gyd-Htl Reductase Inhibitor (Verified Allergy, Unknown, leg cramps, 01/17/20) adhesive tape (Verified Allergy, Unknown, 01/31/20) chromium (Verified Allergy, Unknown, Hives, 01/17/20) clonazepam (Verified Allergy, Unknown, depression, 01/17/20) gold Au 198 (Verified Allergy, Unknown, Hives, 01/17/20) sodium thiosulfate (Verified Allergy, Unknown, Hives, 01/17/20) sulfacetamide (Verified Allergy, Unknown, Nausea, 01/17/20) titanium (Verified Allergy, Unknown, Hives, 01/17/20) Uncoded Allergies: METAL (Allergy, Intermediate, HIVES, 09/21/16) Height (Feet): 5 Height (Inches): 1.00 Weight (Pounds): 170 Weight (Ounces): 2.0 Home Health Need/Face to Face Date of Face to Face: Jan 31, 2020 Clinical Findings: Instability, Muscle weakness, Pain with ambulation, Unsteady gait I have seen Pt [id number]: Yes Discharged To: Home Diagnosis/Conditions: right total knee arthroplasty Patient is Homebound due to: Soraida fall risk due to instabilty, Muscle weakness, Pain w/ambulation Homebound Status Due to the above stated illness, injury or surgical procedure (medical condition or diagnosis) and associated clinical findings, the patient is homebound because of his/her inability to leave home except with aid of a supportive device and/or person AND leaving the home requires a considerable and taxing effort or is medically contraindicated. Pt req the following assistanc: [facility] Nursing Orders Home Health Services Order: Physical Therapy-Evaluate & Treat DC right knee mikel and apply steri strips 02/14/20 Therapy Orders Therapy Orders: Physical Therapy, PT to assess for OT Therapy Specific Orders: Eval assistive deivces, Teach enviro modifications/safety, Gait training, Increase strength/endurance, Provider maintenance therapy, Restore ROM Certify Stmt I certify that this patient is under my care and that I, a nurse practitioner or a physician; a psychiatric assistant working with me, had a face to face encounter that - meets the physician face to face encounter requirements with this patient as dated. BEN GARCIA MD Jan 31, 2020 07:35
[2020-01-31] MEDS ORDERED: INTRA-ARTICULAR IU ONE ×5 (07:45)
[2020-01-31] MEDS ORDERED: GLYCOPYRROLATE 0.2 MG/ML (ROBINUL) 2 ML VIAL ONE ×2 (07:49→08:03)
--- NOTE | 2020-01-31 08:20 | NUR ---
notified tonia henson aprn that patient took lovenox 80mg at 1800 01/30/20 and no warfarin for 10 days and that this rn couldn't add to home medications due to discharge being completed. this rn phoned [employer] and she wasn't able to enter as well.
[2020-01-31] MEDS ORDERED: morphine INJ 10 MG/ML 1ML (SYR OR VIAL) IVP ONE (09:30)
[2020-01-31] MEDS ORDERED: HYDROmorphone 2 MG/ML VIAL (DILAUDID) IV ONE (09:30)
[2020-01-31] MEDS ORDERED: fentaNYL INJECTION 100 MCG/2 ML AMP IVP ONE (09:30)
[2020-01-31] MEDS ORDERED: hydrALAZINE (APESOLINE) 20 MG/ML VIAL IV ONE (09:30)
--- NOTE | 2020-01-31 10:01 | Diagnostic Imaging Report ---
INDICATION: Postoperative. TECHNIQUE: 2 post operative radiographs of the knee CORRELATION STUDY: None FINDINGS: There are postsurgical changes of a total knee arthroplasty. Alignment is anatomic. Installed hardware appearing unremarkable. Overlying soft tissue gas collections and skin mikel are present. IMPRESSION: Postsurgical changes of a right total knee replacement. Dictated by: Dictated on workstation # [id number]
[2020-01-31] MEDS: NS IV 1000 ML 1,000 ML IV SCH ×3 (10:33→23:04)
[2020-01-31] MEDS: SENNA W/DOCUSATE (SENOKOT S) TABLET PO SCH ×2 (10:33→20:31)
[2020-01-31] MEDS: HYDROmorphone (DILAUDID) 4 MG TAB PO PRN (10:41)
--- NOTE | 2020-01-31 12:52 | Progress Note ---
Standard Progress Note Progress Notes/Assess & Plan Date Seen by a Provider: Jan 31, 2020 Time Seen by a Provider: 12:50 Progress/Assessment & Plan post op check no complaints radiographs--HW well positioned without fracture RLE-- 2 plus DP pulse with brisk cap refill, Intact DF and PF of toes and ankle. intact sensation to light touch throughout s/p RTKA mobilize as able BEN GARCAI MD Jan 31, 2020 12:52
--- NOTE | 2020-01-31 14:03 | Physical Therapy Evaluation ---
PT Evaluation-General Medical Diagnosis Admission Date Jan 31, 2020 at 06:00 Medical Diagnosis: DJD; post right TKR Onset Date: Jan 31, 2020 Therapy Diagnosis Therapy Diagnosis: abnormal gait Height/Weight Height (Feet): 5 Height (Inches): 1.00 Weight (Pounds): 170 Weight (Ounces): 2.0 Precautions Precautions/Isolations: Standard Precautions Weight Bear Status Right Lower Extremity: Right Weight Bearing/Tolerated Left Lower Extremity: Left Full Weight Bearing Referral Physician: Awa Reason for Referral: Evaluation/Treatment Medical History Pertinent Medical History: Arthritis, COPD, CVA, DM, HTN, OA Additional Medical History Left TKR 6 month ago Current History Admitted for elective right TKR. Reviewed History: Yes Social History Home: Single Level Current Living Status: Alone Entry Into Home: Stairs With Railing PT Steps Inside Home: 3 Prior Prior Level of Function SCALE: Activities may be completed with or without assistive devices. 1-Apuwwbqwry-adyqwmh completes the activity by him/herself with no assistance from a helper. 5-Set-up or Clean-up Assistance-helper sets up or cleans up; patient completes activity. Tom Bean assists only prior to or following the activity. 4-Supervision or Touching Assistance-helper provides verbal cues and/or touching/steadying and/or contact guard assistance as patient completes activity. Assistance may be provided throughout the activity or intermittently. 3-Partial/Moderate Assistance-helper does LESS THAN HALF the effort. Tom Bean lifts, holds or supports trunk or limbs, but provides less than half the effort. 2-Substantial/Maximal Assistance-helper does MORE THAN HALF the effort. Tom Bean lifts or holds trunk or limbs and provides more than half the effort. 5-Nqwpjyfpn-ibvplm does ALL the effort. Patient does none of the effort to complete the activity. Or, the assistance of 2 or more helpers is required for the patient to complete the activity. If activity was not attempted, code reason: 7-Patient Refused. 9-Not Applicable-not attempted and the patient did not perform the activity before the current illness, exacerbation or injury. 10-Not Attempted due to Environmental Limitations-(lack of equipment, weather restraints, etc.). 88-Not Attempted due to Medical Conditions or Safety Concerns. Bed Mobility: 6 Transfers (B,C,W/C): 6 Gait: 6 Stairs: 6 Indoor Mobility (Ambulation): Independent Stairs: Independent PT Evaluation-Current Subjective Agreeable to PT. Reports she knows what to expect because she justhad her other knee done. Reports she lives alone and has a friend nearby to assist as needed. Reports she hopes to discharge to [facility]. Pain Numeric Pain Scale: 8 Location: Right Location Body Site: Knee Pain Description: Ache Objective Patient Orientation: Person, Place, Time, Situation Attachments: Oxygen (in situ during and post treatment.), IV ROM/Strength ROM Lower Extremities WFL; right knee 0=80 degrees. Strength Lower Extremities WFL left :right is grossly 3/5; able to perform a SLR Integumentary/Posture Integumentary intact Bowel Incontinence: No Bladder Incontinence: No Posture normal and symmetircal Neuromuscular (Tone, Coordination, Reflexes) intact and functional Sensory Vision: Functional Hearing: Functional Sensation Right Lower Extremit: Intact Sensation Left Lower Extremity: Intact Transfers Roll Left to Right (QC): 4 Sit to Lying (QC): 4 Lying to Sitting/Side of Bed(Q: 4 Sit to Stand (QC): 4 (CGa for safety. ) Chair/Fxr-oq-Iaqtd Xfer(QC): 4 (SPT x 2 with FWW with CGA and cues for sequencing. ) Toilet Transfer (QC): 4 Pt performed SPT to from the commode; sidestepping at EOB with FWW with CGA. Balance Sitting Static: Good Sitting Dynamic: Good Standing Static: Good Standing Dynamic: Good Treatment functional trasnfers; seated AP and LAQ; CPM applied 0-64 degreees. Assessment/Needs Post right TKR with functional strength and ROM deficits; requires assist with functional mobility. Will benefit from skilled PT to adress mobility and allow her to return home alone as before. PLOF: she was indep with gait, able to care for herself indep and still drives and ambulates community distances. Rehab Potential: Good PT Language Arts Teacher Goals Language Arts Teacher Goals PT Language Arts Teacher Goals Time Frame: Feb 07, 2020 Roll Left & Right (QC): 6 Sit to Lying (QC): 6 Lying-Sitting on Side/Bed(QC): 6 Sit to Stand (QC): 6 Chair/Teh-gr-[place] Xfer(QC): 6 Walk 150 ft (QC): 6 4 Steps (QC): 6 PT Plan Problem List Problem List: Activity Tolerance, Functional Strength, Safety, Balance, Gait, Transfer, Bed Mobility Treatment/Plan Treatment Plan: Continue Plan of Care Treatment Plan: Bed Mobility, Education, Functional Activity Arnaldo, Functional Strength, Gait, Safety, Therapeutic Exercise, Transfers Treatment Duration: Feb 07, 2020 Frequency: 11 times per week Estimated Hrs Per Day: .5 hour per day Patient and/or Family Agrees t: Yes Safety Risks/Education Patient Education: Transfer Techniques, Safety Issues Teaching Recipient: Patient Teaching Methods: Discussion Response to Teaching: Reinforcement Needed Discharge Recommendations Therapy Discharge Recommendati: Post Acute PT Time/GCodes Time In: 1235 Time Out: 1315 Total Billed Treatment Time: 40 Total Billed Treatment visit EVM 15 FA 25 KELSI PLATT PT Jan 31, 2020 14:02
[2020-01-31] MEDS: CEFUROXIME INJECTION 750 MG in WATER (STERILE) FOR INJECTION 10 ML IV SCH ×2 (15:18→23:00)
--- NOTE | 2020-01-31 16:29 | Consultation ---
History of Present Illness History of Present Illness Patient Consulted On(concha/time) 01/31/20 1845 Date Seen by Provider: Jan 31, 2020 Time Seen by Provider: 15:45 Reason for Visit: RIGHT KNEE ARTHRITIS History of Present Illness PT IS A 69 YEAR OLD FEMALE WHO IS WELL KNOWN TO ME FROM CLINIC. SHE PRESENTED TO THE HOSPITAL FOR PLANNED RIGHT KNEE REPLACEMENT FOR SEVERE ARTHRITIS OF THE KNEE. SHE REPORTS THAT SHE IS SOMEWHAT GROGGY NOW SINCE SHE GOT PAIN MEDICATION FOR HER KNEE. Allergies and Home Medications Allergies Coded Allergies: Sulfa (Sulfonamide Antibiotics) (Verified Allergy, Intermediate, GI UPSET, 01/17/20) acetaminophen (Verified Allergy, Intermediate, "FEELS BAD", 01/31/20) patient states may take this chocolate flavor (Verified Allergy, Intermediate, MIGRAINES, 01/17/20) oxycodone (Verified Allergy, Intermediate, "FEELS BAD", 01/31/20) patient states may take this Qmgbhyg-Rtn-Xkd Reductase Inhibitor (Verified Allergy, Unknown, leg cramps, 01/17/20) adhesive tape (Verified Allergy, Unknown, 01/31/20) chromium (Verified Allergy, Unknown, Hives, 01/17/20) clonazepam (Verified Allergy, Unknown, depression, 01/17/20) gold Au 198 (Verified Allergy, Unknown, Hives, 01/17/20) sodium thiosulfate (Verified Allergy, Unknown, Hives, 01/17/20) sulfacetamide (Verified Allergy, Unknown, Nausea, 01/17/20) titanium (Verified Allergy, Unknown, Hives, 01/17/20) Uncoded Allergies: METAL (Allergy, Intermediate, HIVES, 09/21/16) Home Medications Cetirizine HCl 10 Mg Tablet, 10 MG PO DAILY PRN for CONGESTION, (Reported) Cyclosporine 1 Each Droperette, 1 DROP OU BID, (Reported) Famotidine 20 Mg Tablet, 20 MG PO DAILY, (Reported) Glipizide 5 Mg Tablet, 5 MG PO BID, (Reported) Levothyroxine Sodium 100 Mcg Tablet, 100 MCG PO DAILY, (Reported) Lisinopril 40 Mg Tablet, 40 MG PO DAILY, (Reported) Lorazepam 1 Mg Tablet, 1-2 MG PO DAILY PRN for ANXIETY, (Reported) take 1-2 of 1mg tab Metoprolol Succinate 25 Mg Tab.er.24h, 25 MG PO HS, (Reported) Rizatriptan Benzoate 10 Mg Tablet, 10 MG PO UD PRN for migraines, (Reported) Timolol Maleate 5 Ml Drop.daily, 1 DROP OU DAILY, (Reported) Valacyclovir HCl 500 Mg Tablet, 500 MG PO DAILY PRN for OUTBREAK, (Reported) Venlafaxine HCl 75 Mg Tab.er.24, 75 MG PO DAILY, (Reported) Warfarin Sodium 5 Mg Tablet, 5 MG PO DAILY, (Reported) Patient Home Medication List Home Medication List Reviewed: Yes Past Zsmckgd-Egpham-Wxcdnd Hx Past Med/Social Hx: Reviewed Nursing Past Med/Soc Hx Patient Social History Alcohol Use: Denies Use Recreational Drug Use: No Smoking Status: Former Smoker Former Smoker, Quit: Jan 22, 1984 Recent Foreign Travel: No Contact w/Someone Who Travel: No Recent Infectious Disease Expo: No Recent Hopitalizations: No Immunizations Up To Date Date of Pneumonia Vaccine: Feb 27, 2019 Date of Influenza Vaccine: Dec 04, 2019 Seasonal Allergies Seasonal Allergies: Yes (MILD) Past Medical History Surgeries: Yes (L KNEE SCOPE x4, BLOOD CLOTS REMOVED ABD & KNEE, BACK Sx,R ankle fx, L TKR) Appendectomy, Gallbladder, Hysterectomy Respiratory: Yes (CPAP) Sleep Apnea Currently Using CPAP: Yes Cardiac: Yes (ATYPICAL ARTERIAL BLOOD CLOTS) Coronary Artery Disease, Deep Vein Thrombosis, High Cholesterol, Hypertension Neurological: Yes Headaches /Migraines Reproductive Disorders: No PROCESSOR HELPER History: Hysterectomy Sexually Transmitted Disease: No HIV/AIDS: No Genitourinary: Yes (RENAL ARTERY STENOSIS, ADRENAL INFARCTION) Gastrointestinal: Yes Gastroesophageal Reflux Musculoskeletal: Yes (FIBRO MUSCULAR DYSPHASIA) Degenerate Disk Disease, Arthritis, Fibromyalgia, Chronic Back Pain Endocrine: Yes (APS- ANTIPHOSPHOLIPID SYNDROM) Hypothyroidsim, Diabetes, Non-Insulin dep HEENT: Yes (CATARACT REMOVED) Loss of Vision: Bilateral Hearing Impairment: Denies Cancer: No Psychosocial: Yes Anxiety, Depression Integumentary: Yes (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) Eczema Blood Disorders: No Adverse Reaction/Blood Tranf: No (N/A) Family Medical History Reviewed Nursing Family Hx Alzheimer's disease 19 MOTHER Arthritis 19 MOTHER Cardiovascular disease 19 FATHER Congenital heart disease Diabetes mellitus 19 MOTHER Hypertension 19 MOTHER Myocardial infarction 19 FATHER Heart Disease, Diabetes, Hypertension Review of Systems Review of Systems General: No Chills; Fatigue; No Malaise, No Appetite HEENT: No Head Aches, No Dysphasia; Sore Throat, Other (DRY THROAT) Pulmonary: No Dyspnea, No Cough Cardiovascular: No: Chest Pain, Palpitations Gastrointestinal: No: Nausea, Vomiting, Abdominal Pain Genitourinary: No Dysuria Musculoskeletal: leg pain (RIGHT KNEE PAIN) Neurological: Other (GROGGY FROM PAIN MEDICATION); No: Weakness Physical Exam Vital Signs Vital Signs - First Documented 01/31/20 06:15 Temp 35.6 Pulse 53 Resp 18 B/P (MAP) 136/85 Pulse Ox 98 O2 Delivery Room Air Capillary Refill : Less Than 3 SecondsLess Than 3 Seconds Height, Weight, BMI Height: 5'1.00" Weight: 170lbs. 2.0oz. 77.372476ka; 35.12 BMI Method: General Appearance: No Apparent Distress, WD/WN Eyes: Bilateral Eye Normal Inspection, Bilateral Eye PERRL, Bilateral Eye EOMI HEENT: PERRL/EOMI, Pharynx Normal, Other (SCOPALAMINE PATCH BEHIND LEFT EAR) Neck: Full Range of Motion, Non Tender, Supple Respiratory: Chest Non Tender, Lungs Clear, Normal Breath Sounds, No Accessory Muscle Use, No Respiratory Distress Cardiovascular: Regular Rate, Rhythm, No Edema, Normal Peripheral Pulses Gastrointestinal: Normal Bowel Sounds, No Organomegaly, No Pulsatile Mass, Non Tender, Soft Rectal: Deferred Back: Normal Inspection Extremity: Normal Capillary Refill, No Pedal Edema, Other (RIGHT KNEE IN COLD WRAP, PULSES NORMAL DP AND POST TIB) Neurologic/Psychiatric: Alert, Oriented x3, No Motor/Sensory Deficits, Normal Mood/Affect, signal tower operator II-XII Norm as Tested, Other (SLIGHTLY GROGGY) Skin: Normal Color, Warm/Dry Lymphatic: No Adenopathy Assessment/Plan Assessment/Plan Admission Dx OSTEOARTHRITIS RIGHT KNEE RIGHT KNEE REPLACEMENT HYPERTENSION DIABETES MELLITUS ANTI-PHOSPHOLIPID SYNDROME WITH NEED FOR CHRONIC ANTICOAGULATION HX OF ARTERIAL CLOTS HYPOTHYROIDISM FIBROMYALGIA OSTEOARTHRITIS RIGHT KNEE STATUS POST RIGHT KNEE REPLACEMENT - CONTINUE WITH THERAPY PER DR. GARCIA - PLANNING ON HOME HEALTH OUTPATIENT - PRN RUBBER MOLD MAKER PUMP FOR PAIN CONTROL, WILL TRANSITION TO ORAL MEDICATION PRIOR TO DISCHARGE. HYPERTENSION - RESUME HOME REGIMEN TOMORROW. - MONITOR BLOOD PRESSURE CLOSELY DIABETES MELLITUS - RESUME HOME REGIMEN TOMORROW, MONITOR FSBS ANTI-PHOSPHOLIPID SYNDROME WITH NEED FOR CHRONIC ANTICOAGULATION - RESUME COUMADIN - ONCE INR GETS TO 2 WILL DC LOVENOX HX OF ARTERIAL CLOTS - COUMADIN TO BE RESUMED HYPOTHYROIDISM - RESUME HOME REGIMEN FIBROMYALGIA - SUPPORTIVE CARE ONLY AT THIS TIME. DVT PROPHYLAXIS WITH LOVENOX, THEN TRANSITION TO COUMADIN GI PROPHYLAXIS WITH HX JOSE Admission Status: Inpatient Order (span 2 midnights) Reason for Inpatient Admission: INPT ADMISSION POST-OP RIGHT KNEE REPLACEMENT - WILL REQUIRE AT LEAST 48 - 72 HOURS POST-KNEE REPLACEMENT Assessment and Plan OSTEOARTHRITIS RIGHT KNEE RIGHT KNEE REPLACEMENT HYPERTENSION DIABETES MELLITUS ANTI-PHOSPHOLIPID SYNDROME WITH NEED FOR CHRONIC ANTICOAGULATION HX OF ARTERIAL CLOTS HYPOTHYROIDISM FIBROMYALGIA Clinical Quality Measures DVT/VTE Risk/Contraindication: Risk Factor Score Per Nursin RFS Level Per Nursing on Admit: 4+=Very High JEVON BAKER MD Jan 31, 2020 16:29
[2020-01-31] MEDS ORDERED: LORazepam 1 MG (ATIVAN) TAB PO PRN (16:45)
[2020-01-31] MEDS ORDERED: NON-FORMULARY MEDICATION 1 EA EA (Cetirizine HCl 10 MG) PO PRN (16:45)
[2020-01-31] MEDS ORDERED: CHLORASEPTIC LOZENGE MM NR (16:45)
--- NOTE | 2020-01-31 16:54 | OPERATIVE REPORT ---
DATE OF SERVICE: 01/31/2020 PREOPERATIVE DIAGNOSIS: Right knee primary osteoarthritis. POSTOPERATIVE DIAGNOSIS: Right knee primary osteoarthritis. PROCEDURE PERFORMED: Right total knee arthroplasty. SURGEON: Jamie Garcia MD. ASSEMBLER AND TESTER ELECTRONICS: Arsenio Mast, who assisted throughout the procedure and closed the incision. ANESTHESIA: General endotracheal by Mahnaz Love CRNA. TOURNIQUET TIME: Approximately 65 minutes at 300 mmHg. ESTIMATED BLOOD LOSS: Minimal. DRAINS: None. COMPLICATIONS: None. POSTOPERATIVE PLAN: Routine protocol. MATERIALS: Microport cemented size 3 femur, cemented size 3 tibia with 10 mm insert and cemented size 29 patella. These were the metal allergic components. STATEMENT OF MEDICAL NECESSITY: The patient is a 69-year-old female with longstanding right knee pain. Radiographs revealed severe medial and patellofemoral arthrosis. She has undergone treatment with arthroscopy, anti-inflammatories and injections without relief. Due to functional impairment and failure to improve with conservative measures, the patient elected to proceed with surgical intervention. DESCRIPTION OF PROCEDURE: After risks and benefits of procedure were discussed and questions were answered, informed consent was signed and placed on chart and the operative site was confirmed in the preoperative holding area initialed by the surgeon, the patient was then transferred to the operating room. After adequate levels of general endotracheal anesthetic were obtained, a timeout was called, confirming the operative site. The right lower extremity was prepped and draped in the usual sterile fashion. With the leg elevated and the knee flexed, the tourniquet was inflated to 300 mmHg. Standard anterior approach was utilized. Hemostasis was obtained with cautery. Medial parapatellar arthrotomy was performed leaving 1 cm cuff on the patella for later reattachment. A portion of the fat pad was resected. The ACL was resected. Subperiosteal release was carefully performed on the proximal medial tibia being careful to stay on the bony surface. Intramedullary guide was passed into the femur and the distal cutting block was placed. Distal cut was made and the femur was sized to a size 3. The 3 cutting block was placed parallel to the epicondylar axis and cuts were made from posterior to anterior. A subperiosteal release was then carefully performed on the posterior distal femur, being careful to stay on the bony surface. The intramedullary guide was then passed into the tibia. The drop alexi transected the intermalleolar axis and the tibial cut was made. The size 3 baseplate was placed and pinned into position. This was then prepared with the drill and keel punch. The femoral trial was placed and the trochlear cut was made. A 10 mm insert was placed. The patella was then prepared by using the freehand technique and resected 10 mm off the undersurface. Peg guide was placed and the peg holes were drilled. The trials were inserted. Full extension was easily obtained. The patella tracked well. There was no anterior/posterior or medial/lateral laxity in flexion or extension, 120 degrees of flexion with gravity was easily obtained and full extension was easily obtained. The trials were removed. The bone ends were irrigated with pulse lavage as were the soft tissues. The periarticular block was placed in the posterior capsule, medial and lateral retinaculum, extensor mechanism and subcutaneous tissues. The bone ends were further irrigated and dried. The tibial baseplate was cemented into position. Excessive cement was removed. Superior surface was irrigated and dried. The polyethylene insert was placed. Distal femur was irrigated and it was then dried and the femoral prosthesis was cemented into position. The knee was brought into full extension until the cement had cured. The undersurface of patella was irrigated and dried. The patellar button was cemented into position. Once the cement had cured, the knee was taken through range of motion. Full extension was easily obtained degrees of flexion with gravity was easily obtained. There was no anterior/posterior or medial/lateral laxity in flexion or extension and the patella tracked well. The joint was further irrigated with pulse lavage using a total of 6 liters throughout the procedure. The arthrotomy was closed with #2 Tevdek in ebknkf-fv-ytaqv interrupted fashion. The knee was flexed, the repair was stable and the patella tracked well. The subcutaneous tissues were irrigated with pulse lavage and 0 Vicryl was used to reapproximate the subcutaneous tissue, 2-0 Vicryl for the superficial subcutaneous tissue and staplers were used on the skin. A soft dressing was applied. The tourniquet was deflated. The patient was transferred to the recovery room awake and in stable condition. Job ID: [id number] DocumentID: [id number] Dictated Date: 01/31/2020 09:15:37 Kiln Door Repairer Date: 01/31/2020 16:53:36 Dictated By: JAMIE GARCIA MD
[2020-01-31] MEDS ORDERED: ARTIFICAL TEARS 0.4 ML UNIT DOSE (REFRESH PLUS) OU PRN (17:00)
[2020-01-31] MEDS ORDERED: LORATADINE (CLARITIN) 10 MG TAB PO PRN (17:00)
[2020-01-31] MEDS: warFARin 5 MG (COUMADIN) TAB PO SCH (17:23)
[2020-01-31] MEDS ORDERED: warFARin 5 MG (COUMADIN) TAB PO NR (18:00)
[2020-01-31 18:01] LABS: POTASSIUM 4.4 MMOL/L (3.6-5.0)
[2020-01-31 18:02] LABS: CALCIUM 7.8 MG/DL (8.5-10.1)
[2020-01-31 18:06] LABS: CREATININE SERUM 1.21 MG/DL (0.60-1.30)
[2020-01-31] MEDS ORDERED: NON-FORMULARY MEDICATION 1 EA EA (Cyclosporine (Restasis) 1 DROP) OU SCH (21:00)
[2020-02-01 00:28] VITALS: BP 114/59
[2020-02-01 05:45] LABS: HEMOGLOBIN 9.9 g/dL (11.5-16.0)
--- NOTE | 2020-02-01 07:09 | Anesthesia-General Post-Op ---
General Patient Condition Mental Status/LOC: Same as Preop Cardiovascular: Satisfactory Nausea/Vomiting: Absent Respiratory: Satisfactory Pain: Controlled Complications: Absent Post Op Complications Complications None Follow Up Care/Instructions Patient Instructions None needed. Anesthesia/Patient Condition Patient Condition Patient is doing well, no complaints, stable vital signs, no apparent adverse anesthesia problems. No complications reported per nursing. BELINDA CORDOVA CRNA Feb 01, 2020 07:09
[2020-02-01 08:00] VITALS: BP 123/58
--- NOTE | 2020-02-01 08:07 | Progress Note ---
Subjective Subjective Date Seen by Provider: Feb 01, 2020 Time Seen by Provider: 07:50 Pt states she feels well today. Has been ambulating without difficulty and has been using her incentive spirometer. Eating breakfast on exam. Has some soreness in her right knee, but no other complaints. Has been trying to use FROZEN FOODS MANAGER pump less. Review of Systems General: No Chills, No Malaise, No Appetite HEENT: No Head Aches, No Dysphasia; Sore Throat, Other (DRY THROAT) Pulmonary: No Dyspnea, No Cough Cardiovascular: No: Chest Pain, Palpitations Gastrointestinal: No: Nausea, Vomiting, Abdominal Pain Genitourinary: No Dysuria Musculoskeletal: leg pain (RIGHT KNEE PAIN) Neurological: Other (GROGGY FROM PAIN MEDICATION); No: Weakness Objective Exam Vital Signs Vital Signs - First Documented 01/31/20 06:15 Temp 35.6 Pulse 53 Resp 18 B/P (MAP) 136/85 Pulse Ox 98 O2 Delivery Room Air Capillary Refill : Less Than 3 SecondsLess Than 3 Seconds General Appearance: No Apparent Distress, WD/WN Eyes: Bilateral Eye Normal Inspection, Bilateral Eye PERRL, Bilateral Eye EOMI HEENT: PERRL/EOMI, Pharynx Normal, Other (SCOPALAMINE PATCH BEHIND LEFT EAR) Neck: Full Range of Motion, Non Tender, Supple Respiratory: Chest Non Tender, Lungs Clear, Normal Breath Sounds, No Accessory Muscle Use, No Respiratory Distress Cardiovascular: Regular Rate, Rhythm, No Edema Gastrointestinal: No Pulsatile Mass, Non Tender, Soft Rectal: Deferred Back: Normal Inspection Extremity: Normal Capillary Refill, No Calf Tenderness, No Pedal Edema, Other (RIGHT KNEE IN COLD WRAP) Neurologic/Psychiatric: Alert, Oriented x3, No Motor/Sensory Deficits, Normal Mood/Affect Skin: Normal Color, Warm/Dry Lymphatic: No Adenopathy Results Lab Laboratory Tests 01/31/20 17:25: Sodium Level 137, Potassium Level 4.4, Chloride Level 104, Carbon Dioxide Level 22, Anion Gap 11, Blood Urea Nitrogen 21H, Creatinine 1.21, Estimat Glomerular Filtration Rate 44, BUN/Creatinine Ratio 17, Glucose Level 109H, Calcium Level 7.8L 02/01/20 05:24: Assessment/Plan Assessment/Plan Assessment and Plan OSTEOARTHRITIS RIGHT KNEE RIGHT KNEE REPLACEMENT HYPERTENSION DIABETES MELLITUS ANTI-PHOSPHOLIPID SYNDROME WITH NEED FOR CHRONIC ANTICOAGULATION HX OF ARTERIAL CLOTS HYPOTHYROIDISM FIBROMYALGIA OSTEOARTHRITIS RIGHT KNEE STATUS POST RIGHT KNEE REPLACEMENT - CONTINUE WITH THERAPY PER DR. GARCIA - PLANNING ON HOME HEALTH OUTPATIENT - PRN FROZEN FOODS MANAGER PUMP FOR PAIN CONTROL, WILL TRANSITION TO ORAL MEDICATION PRIOR TO DISCHARGE. HYPERTENSION - RESUMED HOME REGIMEN - MONITOR BLOOD PRESSURE CLOSELY DIABETES MELLITUS - RESUMED HOME REGIMEN, MONITOR FSBS ANTI-PHOSPHOLIPID SYNDROME WITH NEED FOR CHRONIC ANTICOAGULATION - RESUME COUMADIN - ONCE INR GETS TO 2 WILL DC LOVENOX HX OF ARTERIAL CLOTS - COUMADIN TO BE RESUMED HYPOTHYROIDISM - RESUME HOME REGIMEN FIBROMYALGIA - SUPPORTIVE CARE ONLY AT THIS TIME. DVT PROPHYLAXIS WITH LOVENOX, THEN TRANSITION TO COUMADIN GI PROPHYLAXIS WITH HX JOSE Clinical Quality Measures DVT/VTE Risk/Contraindication: Risk Factor Score Per Nursin RFS Level Per Nursing on Admit: 4+=Very High VALDO DODSON MED STUDENT Feb 01, 2020 08:07
[2020-02-01 08:08] LABS: PROTHROMBIN TIME PATIENT 13.5 SEC (12.2-14.7)
[2020-02-01] MEDS: VENlafaxine XR 75 MG (EFFEXOR XR) CAP PO SCH (08:10)
[2020-02-01] MEDS: LEVOTHYROXINE 100 MCG (LEVOTHROID) TAB PO SCH (08:10)
[2020-02-01] MEDS: glipiZIDE 5 MG (GLUCOTROL) TAB PO SCH ×2 (08:10→16:52)
[2020-02-01] MEDS: MULTIVIT W/MINERALS TAB (THERAGRAN M) PO SCH (08:11)
--- NOTE | 2020-02-01 08:11 | Progress Note ---
Standard Progress Note Progress Notes/Assess & Plan Date Seen by a Provider: Feb 01, 2020 Time Seen by a Provider: 08:10 Progress/Assessment & Plan post op check no complaints radiographs--HW well positioned without fracture RLE-- 2 plus DP pulse with brisk cap refill, Intact DF and PF of toes and ankle. intact sensation to light touch throughout s/p RTKA mobilize as able Final Diagnosis doing very well without complaints Vital Signs Date Time Temp Pulse Resp B/P (MAP) Pulse Ox O2 Delivery O2 Flow Rate FiO2 02/01/20 00:28 36.3 66 18 114/59 (77) 91 Room Air 01/31/20 21:00 Room Air 01/31/20 20:00 35.4 63 20 96/46 (63) 95 Room Air 01/31/20 16:08 92 Nasal Cannula 2.00 01/31/20 16:00 33.7 57 20 104/56 (72) 93 Room Air 01/31/20 12:00 35.6 53 18 136/85 (102) 98 Room Air 01/31/20 10:00 36.2 18 104/58 (73) 99 Nasal Cannula 2 01/31/20 10:00 Nasal Cannula 2 01/31/20 09:50 18 99/53 (68) 98 Nasal Cannula 2 01/31/20 09:47 Nasal Cannula 2 01/31/20 09:40 OxyMask 3 01/31/20 09:40 18 101/46 (64) 95 OxyMask 3 01/31/20 09:36 OxyMask 6 01/31/20 09:30 18 124/42 (69) 98 OxyMask 6 01/31/20 09:20 OxyMask 6 01/31/20 09:20 18 168/91 (116) 97 OxyMask 6 01/31/20 09:16 18 168/114 (132) 99 OxyMask 6 01/31/20 09:09 OxyMask 6 01/31/20 09:09 36.1 18 205/120 (148) 99 OxyMask 6 01/31/20 09:00 35.26348 53 18 136/85 98 I & O 02/01/20 07:00 Intake Total 2455 ml Balance 2455 ml Laboratory Tests Test 01/31/20 17:25 02/01/20 05:24 Range/Units Sodium Level 137 135-145 MMOL/L Potassium Level 4.4 3.6-5.0 MMOL/L Chloride Level 104 98-107 MMOL/L Carbon Dioxide Level 22 21-32 MMOL/L Anion Gap 11 5-14 MMOL/L Blood Urea Nitrogen 21 H 7-18 MG/DL Creatinine 1.21 1.32 H 0.60-1.30 MG/DL Estimat Glomerular Filtration Rate 44 BUN/Creatinine Ratio 17 Glucose Level 109 H 70-105 MG/DL Calcium Level 7.8 L 8.5-10.1 MG/DL Hemoglobin 9.9 L 11.5-16.0 g/dL Hematocrit 33 L 35-52 % Prothrombin Time 13.5 12.2-14.7 SEC INR Comment 1.0 0.8-1.4 RLE--dressing intact. No calf tenderness. Neg Brian's.NVI s/p RTKA doing well continue PT/OT BEN GARCIA MD Feb 01, 2020 08:11
[2020-02-01] MEDS ORDERED: NON-FORMULARY MEDICATION 1 EA EA (Venlafaxine HCl (Venlafaxine HCl ER) 75 MG) PO SCH (09:00)
[2020-02-01] MEDS ORDERED: NON-FORMULARY MEDICATION 1 EA EA (Timolol Maleate 1 DROP) OU SCH (09:00)
[2020-02-01] MEDS: ENOXAPARIN 30 MG/0.3 ML (LOVENOX) SYR SC SCH ×2 (09:30→20:00)
[2020-02-01] MEDS: ASPIRIN E.C. 81 MG (ECOTRIN) TAB PO SCH (09:31)
[2020-02-01] MEDS: lisINopril 40 MG (PRINIVIL) TABLET PO SCH (09:31)
[2020-02-01] MEDS: FAMOTIDINE 20 MG (PEPCID) TABLET PO SCH (09:31)
[2020-02-01] MEDS: HYDROmorphone (DILAUDID) 4 MG TAB PO PRN ×2 (09:31→10:20)
[2020-02-01] MEDS: SENNA W/DOCUSATE (SENOKOT S) TABLET PO SCH ×2 (09:32→20:03)
--- NOTE | 2020-02-01 09:50 | NUR ---
POST VOID BLADDER SCAN [address] BAKER NOTIFIED.
--- NOTE | 2020-02-01 10:44 | Physical Therapy Daily Note ---
PT Daily Note-Current Subjective Patient is up independently in room. Mental Status Patient Orientation: Normal For Age Attachments: IV Transfers SCALE: Activities may be completed with or without assistive devices. 0-Kzgvzfeivm-cemueli completes the activity by him/herself with no assistance from a helper. 5-Set-up or Clean-up Assistance-helper sets up or cleans up; patient completes a ctivity. [place] assists only prior to or following the activity. 4-Supervision or Touching Assistance-helper provides verbal cues and/or touching/steadying and/or contact guard assistance as patient completes activity. Assistance may be provided throughout the activity or intermittently. 3-Partial/Moderate Assistance-helper does LESS THAN HALF the effort. [place] lifts, holds or supports trunk or limbs, but provides less than half the effort. 2-Substantial/Maximal Assistance-helper does MORE THAN HALF the effort. [place] lifts or holds trunk or limbs and provides more than half the effort. 7-Smblrrjcb-uoprjr does ALL the effort. Patient does none of the effort to complete the activity. Or, the assistance of 2 or more helpers is required for the patient to complete the activity. If activity was not attempted, code reason: 7-Patient Refused. 9-Not Applicable-not attempted and the patient did not perform the activity before the current illness, exacerbation or injury. 10-Not Attempted due to Environmental Limitations-(lack of equipment, weather restraints, etc.). 88-Not Attempted due to Medical Conditions or Safety Concerns. Sit to Lying (QC): 6 Sit to Stand (QC): 6 Toilet Transfer (QC): 6 Weight Bearing Right Lower Extremity: Right Weight Bearing/Tolerated Left Lower Extremity: Left Full Weight Bearing Gait Training Does the Patient Walk?: Yes Distance: 350' Walk 10 feet (QC): 6 Walk 50 ft with 2 Turns(QC): 6 Walk 150 ft (QC): 6 Gait Assistive Device: FWW slow, reciprocal pattern. Exercises Supine Ex: Ankle pumps, Quad Set, Heel Slides, Straight leg raise Supine Reps: 12 Seated Therapy Exercises: Ankle pumps, Long arc quads Seated Reps: 12 Treatments CPM and polar pack in place (0-74 degrees) Assessment Current Status: Excellent Progress Patient progressing with treatment plan. Increase activity as tolerated by patient. PT Outsole Beveler Goals Outsole Beveler Goals PT Retirement Goals Time Frame: Feb 07, 2020 Roll Left & Right (QC): 6 Sit to Lying (QC): 6 Lying-Sitting on Side/Bed(QC): 6 Sit to Stand (QC): 6 Chair/Qpu-cj-Hrkpm Xfer(QC): 6 Walk 150 ft (QC): 6 4 Steps (QC): 6 PT Plan Treatment/Plan Treatment Plan: Continue Plan of Care Treatment Plan: Bed Mobility, Education, Functional Activity Arnaldo, Functional Strength, Gait, Safety, Therapeutic Exercise, Transfers Treatment Duration: Feb 07, 2020 Frequency: 11 times per week Estimated Hrs Per Day: .5 hour per day Patient and/or Family Agrees t: Yes Time/GCodes Time In: 841 Time Out: 904 Total Billed Treatment Time: 23 Total Billed Treatment 1 visit EX 14 min GT 9 min ANDREZ CHAMBERS PT Feb 01, 2020 10:44
--- NOTE | 2020-02-01 10:53 | NUR ---
CM/SS visited with patient for social service consult. Plan: The patient is planned to discharge on Thursday 02/01 with home health for Physical Therapy. Home Health: The patient chose [facility] due to having them in the past. CM/SS contacted the agency and spoke with Karyn to make a referral. CM/SS faxed referral for a start of care on Sunday 02/04. Walker: The patient already has a walker at home. Support: The patient lives at home alone but she has a friend that lives a few blocks away from her that is going to assist when needed. CM/SS will continue to follow.
--- NOTE | 2020-02-01 11:00 | NUR ---
ST. CATH 750 CC.
[2020-02-01] MEDS: NS IV 1000 ML 1,000 ML IV SCH (11:38)
[2020-02-01] MEDS: BETHANECHOL 25 MG (URECHOLINE) TAB PO SCH ×2 (11:47→17:12)
[2020-02-01 12:00] VITALS: BP 120/60
--- NOTE | 2020-02-01 13:04 | NUR ---
IRF Evaluation Determination: Denied Findings: It appears patient is ambulating (350ft, FWW), completing toilet transfers, rpa-yl-ioyln and pqc-vd-rxvsg with independence; therefore, patient does not require inpatient rehab services. Thank you for this referral.
--- NOTE | 2020-02-01 14:18 | Occupational Therapy Eval ---
OT Evaluation-General/PLF Medical Diagnosis Admission Date Jan 31, 2020 at 06:00 Medical Diagnosis: DJD; post right TKR Onset Date: Jan 31, 2020 Therapy Diagnosis Therapy Diagnosis: decreased ADL/functional mobility Height/Weight Height (Feet): 5 Height (Inches): 1.00 Weight (Pounds): 170 Weight (Ounces): 2.0 Precautions Precautions/Isolations: Standard Precautions Referral Physician: Awa Referral Reason: Evaluation/Treatment Medical History Pertinent Medical History: Arthritis, COPD, CVA, DM, HTN, OA Current History s/p R TKR Social History Home: Single Level Current Living Status: Alone Entry Into Home: Stairs With Railing Steps Inside Home: 3 ADL-Prior Level of Function SCALE: Activities may be completed with or without assistive devices. 9-Bzmmyqrtwy-vigsxuw completes the activity by him/herself with no assistance from a helper. 5-Set-up or Clean-up Assistance-helper sets up or cleans up; patient completes activity. [place] assists only prior to or following the activity. 4-Supervision or Touching Assistance-helper provides verbal cues and/or touching/steadying and/or contact guard assistance as patient completes activity. Assistance may be provided throughout the activity or intermittently. 3-Partial/Moderate Assistance-helper does LESS THAN HALF the effort. [place] lifts, holds or supports trunk or limbs, but provides less than half the effort. 2-Substantial/Maximal Assistance-helper does MORE THAN HALF the effort. [place] lifts or holds trunk or limbs and provides more than half the effort. 2-Onvbnsxya-lorcsq does ALL the effort. Patient does none of the effort to complete the activity. Or, the assistance of 2 or more helpers is required for the patient to complete the activity. If activity was not attempted, code reason: 7-Patient Refused. 9-Not Applicable-not attempted and the patient did not perform the activity before the current illness, exacerbation or injury. 10-Not Attempted due to Environmental Limitations-(lack of equipment, weather restraints, etc.). 88-Not Attempted due to Medical Conditions or Safety Concerns. ADL PLOF Comments Pt indicates she was independent with all ADLS and functional mobility at PLOF, she was driving and able to take care of housework and shopping. Self Care: Independent Functional Cognition: Independent DME/Equipment: Bath Bench, Tub/Shower OT Current Status Subjective Pt laying in bed, agreeable to OT evaluation. Pt indicates she is hoping to dis charge tomorrow. Mental Status/Objective Patient Orientation: Person, Place, Time, Situation Attachments: Other-See Comments (CPM) Current Upper Extremity ROM WFL Upper Extremity Coordination WFL Upper Extremity Sensation pt denies tingling/numbness BUEs Upper Extremity Strength grossly 4+/5 BUEs ADL-Treatment Eating (QC): 6 (Per clinical judgement, pt independent with task.) Oral Hygiene (QC): 6 (Per clinical judgement, pt independent with task.) Toileting Hygiene (QC): 6 (Pt indicates she is able to complete task independently) Other Treatments Pt laying in bed, stating her leg is sore, did not verbalize pain rating. OT educated pt on purpose and benefit of OT, she verbalized understanding. Pt provided information about PLOF and home set up and participated in UE screen. Pt indicates she does not feel like she requires any OT services at this time, as she has been up independently in her room and she has had her other knee replaced in the past and knows what to expect. Her friend is going to assist her with grocery shopping and cooking for a little while after discharge, pt has a tub transfer bench and grab bars in the shower and does not see any difficulties/concerns with completing ADLs. OT educated pt on OT POC while pt is in the hospital, stating OT will attempt to see pt tomorrow prior to d/c to see if pt has any other concerns with ADLs not discussed in this visit. Pt verbalized understanding. Pt declines OOB activities at this time stating she knows her body's limits and she just needs to rest at this time. Post OT tx, pt laying in bed, call light in reach and all needs met. Education OT Patient Education: Correct positioning, Modified ADL techniques, Progress toward Goal/Update tx plan, Purpose of tx/functional activities Teaching Recipient: Patient Teaching Methods: Discussion Response to Teaching: Verbalize Understanding OT Comber Fixer Goals Comber Fixer Goals Time Frame: Feb 08, 2020 Eating (QC): 6 Oral Hygiene (QC): 6 Toileting Hygiene (QC): 6 Shower/Bathe Self (QC): 6 Upper Body Dressing (QC): 6 Lower Body Dressing (QC): 6 On/Off Footwear (QC): 6 1=Demonstrate adherence to instructed precautions during ADL tasks. 2=Patient will verbalize/demonstrate understanding of assistive devices/modifications for ADL. 3=Patient will improve strength/tolerance for activity to enable patient to perform ADL's. OT Education/Plan Problem List/Assessment Assessment: Decreased Activ Tolerance, Impaired Funct Balance, Impaired I ADL's Pt indicates she is hoping to d/c tomorrow and she feels like she will be able to complete all ADLS without difficulty, and she has her home set up for her discharge. OT to check on pt to make sure she does not have any further concerns prior to d/c. Discharge Recommendations Plan/Recommendations: Continue POC Therapy Discharge Recommendati: Home & Family Treatment Plan/Plan of Care Patient would benefit from OT for education, treatment and training to promote independence in ADL's, mobility, safety and/or upper extremity function for ADL's. Plan of Care: ADL Retraining, Functional Mobility, UE Funct Exercise/Act Treatment Duration: Feb 08, 2020 Frequency: 5 times per week Estimated Hrs Per Day: .25 hour per day Rehab Potential: Good Time/GCodes Start Time: 13:53 Stop Time: 14:05 Total Time Billed (hr/min): 12 Billed Treatment Time 1, MEGHAN ARORA OT Feb 01, 2020 14:18
--- NOTE | 2020-02-01 14:28 | Physical Therapy Progress Note ---
Therapy Progress Note Patient adamantly declined PT this p.m. due to up with nursing and reports she is performing exercises independently. CPM and polar pack in place with same setting as a.m. 1 ref ([id number]) ANDREZ CHAMBERS PT Feb 01, 2020 14:28
--- NOTE | 2020-02-01 14:51 | NUR ---
RD ASSESSMENT PMHx: HTN; DM; HLD; hypothyroidism; GERD; s/p R TKA PT INTERACTION: Pt was awake and pleasant during nutrition assessment. Pt states current appetite is good. Note avg PO intake 67% x1d, per chart review. Pt states following a low-CHO "no fried foods" diet at home, and has no issues wtih chewing/swallowing food. Pt states no recent issues with n/v/c/d, and that her last BM was 01/29. Note pt currently on bowel regimen of senna BID, per chart review. Pt states some recent wt loss, but is unsure of amount/timeframe. Note recent 3# wt gain x4mon, per chart review. Pt states current DM management is good. "My blood sugar levels have been running a little lower than normal, so I can't complain." Note unable to determine recent HbA1c, per chart review. ABNORMAL NUTRITION-RELATED LAB VALUES LOW: Ca 7.8; HIGH: BUN 21; cr 1.32; glu 109 Est. kcal needs: 6900-5999 kcal | 15-18 kcal/kg Est. Pro needs: 83-100 g Pro | 1.0-1.2 g Pro/kg PES STATEMENT: Inadequate oral intake (NI-2.1) related to loss of appetite as evidenced by pt interview, and avg PO intake 67% x1d. INTERVENTION: Continue with current diet order of CHO 60g/m 3snack diet. Pt may benefit from nutrition supplementation if PO intake declines. Offered diet education on DM management, but pt declined at this time. May attempt to offer again prior to discharge. Will continue to follow and reassess as pt needs, intake, and status change. Beckie Medeiros, MS RD LD [phone] cell
[2020-02-01 15:39] VITALS: BP 163/70
--- NOTE | 2020-02-01 16:54 | NUR ---
I HAVE REVIEWED CHARTING OF FABIOLA RN PRECEPTOR AND AGREE WITH DOCUMENTATION.
[2020-02-01] MEDS: warFARin 5 MG (COUMADIN) TAB PO SCH (17:12)
[2020-02-01] MEDS ORDERED: warFARin 2.5 MG (COUMADIN) TAB PO NR (18:00)
[2020-02-01 19:15] VITALS: BP 151/66
--- NOTE | 2020-02-01 19:30 | NUR ---
Bladder scanned Pt at this time. 453ml. Got Pt up to toilet. voided 100ml. Bladder scanned with residual of 353ml. Called Dr. Coleman as reported by claudiaakmanjit snider notified. New order for Bethanical 25mg to be given now and straight cath Pt now. New order for Bethanicol 50mg to be given at 2200. Bladder scan to be repeated at [address] Coleman with Bladder scan results at that time.
[2020-02-01] MEDS ORDERED: BETHANECHOL 25 MG (URECHOLINE) TAB PO NR ×2 (20:00→22:00)
--- NOTE | 2020-02-01 21:53 | NUR ---
BLADDER SCANNED -105ML
--- NOTE | 2020-02-01 21:54 | NUR ---
CALLED OLIVIA TO UPDATE HER ON BLADDER SCAN RESULTS.
[2020-02-02 00:53] VITALS: BP 142/65
[2020-02-02] MEDS: NS IV 1000 ML 1,000 ML IV SCH (01:27)
[2020-02-02 04:12] VITALS: BP 158/80
--- NOTE | 2020-02-02 05:42 | DISCHARGE SUMMARY ---
DATE OF SERVICE: DIAGNOSES: 1. Right knee primary osteoarthritis. 2. Hypertension. 3. Hyperlipidemia. 4. Diabetes. 5. Hypothyroidism. 6. Reflux. 7. Degenerative disk disease. 8. Depression. 9. Anxiety. 10. Antiphospholipid syndrome. PROCEDURE: Right total knee arthroplasty. SUMMARY: The patient is a 69-year-old female, who underwent a right total knee arthroplasty on the day of admission. Postoperatively, she did very well. At time of discharge, her wound was clean and dry. She had no calf tenderness. Negative Homans sign. Her wound was clean and dry. She was tolerating diet well and tolerating pain with oral pain medication. CONDITION AT DISCHARGE: Good. DISCHARGE DIET: Regular. FOLLOWUP: Followup is in three weeks. ACTIVITIES: Weightbearing as tolerated with walker. Home physical therapy has been arranged. DISCHARGE MEDICATIONS: Home medications, warfarin as prescribed by Dr. Coleman and Percocet as needed for pain. Job ID: [id number] DocumentID: [id number] Dictated Date: 02/01/2020 19:20:03 Wildland Fire Fighter Date: 02/02/2020 05:41:42 Dictated By: BEN GARCIA MD
[2020-02-02 05:43] LABS: HEMOGLOBIN 9.3 g/dL (11.5-16.0)
[2020-02-02 06:22] LABS: INR 1.1 (0.8-1.4); PROTHROMBIN TIME PATIENT 14.8 SEC (12.2-14.7)
[2020-02-02] MEDS: ENOXAPARIN 30 MG/0.3 ML (LOVENOX) SYR SC SCH (06:53)
[2020-02-02] MEDS: MULTIVIT W/MINERALS TAB (THERAGRAN M) PO SCH (06:53)
[2020-02-02] MEDS: glipiZIDE 5 MG (GLUCOTROL) TAB PO SCH (06:53)
[2020-02-02] MEDS: VENlafaxine XR 75 MG (EFFEXOR XR) CAP PO SCH (06:53)
[2020-02-02] MEDS: BETHANECHOL 25 MG (URECHOLINE) TAB PO SCH (06:53)
[2020-02-02] MEDS: LEVOTHYROXINE 100 MCG (LEVOTHROID) TAB PO SCH (07:00)
--- NOTE | 2020-02-02 07:07 | Progress Note ---
Standard Progress Note Progress Notes/Assess & Plan Date Seen by a Provider: Feb 02, 2020 Time Seen by a Provider: 07:06 Progress/Assessment & Plan post op check no complaints radiographs--HW well positioned without fracture RLE-- 2 plus DP pulse with brisk cap refill, Intact DF and PF of toes and ankle. intact sensation to light touch throughout s/p RTKA mobilize as able Final Diagnosis no complaints Vital Signs Date Time Temp Pulse Resp B/P (MAP) Pulse Ox O2 Delivery O2 Flow Rate FiO2 02/02/20 04:12 36.6 81 16 158/80 (106) 91 Room Air 02/02/20 00:53 37.0 87 18 142/65 (90) 93 Room Air 02/01/20 21:00 Room Air 02/01/20 20:00 20 02/01/20 19:15 36.8 73 16 151/66 (94) 97 Room Air 02/01/20 15:39 36.5 86 16 163/70 (101) 97 Room Air 02/01/20 12:56 Room Air 02/01/20 12:00 36.2 74 20 120/60 (80) 96 Room Air 02/01/20 09:00 96 Room Air 2.00 02/01/20 08:00 35.2 77 20 123/58 (79) 96 Room Air I & O 02/02/20 07:00 Intake Total 2470 ml Output Total 1950 ml Balance 520 ml Laboratory Tests Test 02/02/20 04:25 Range/Units Hemoglobin 9.3 L 11.5-16.0 g/dL Hematocrit 30 L 35-52 % Prothrombin Time 14.8 H 12.2-14.7 SEC INR Comment 1.1 0.8-1.4 RLE--incision clean and dry. Fracture blisters noted. No calf tenderness. Neg Brian's s/p RTKA doing well DC after PT today BEN GARCIA MD Feb 02, 2020 07:07
[2020-02-02] MEDS ORDERED: morphine INJ 4 MG/ML 1 ML (VIAL/SYRINGE) IVP PRN (07:15)
--- NOTE | 2020-02-02 07:24 | NUR ---
CADOnel MACHINE CLIPPER DC'D. 80 ML MS WASTED WITH TANK DUPREE RN WITNESS TO WASTE.
[2020-02-02] MEDS: FAMOTIDINE 20 MG (PEPCID) TABLET PO SCH (07:56)
[2020-02-02] MEDS: SENNA W/DOCUSATE (SENOKOT S) TABLET PO SCH (07:56)
[2020-02-02] MEDS: ASPIRIN E.C. 81 MG (ECOTRIN) TAB PO SCH (07:56)
[2020-02-02] MEDS: HYDROmorphone (DILAUDID) 4 MG TAB PO PRN (07:57)
[2020-02-02] MEDS: lisINopril 40 MG (PRINIVIL) TABLET PO SCH (07:57)
--- NOTE | 2020-02-02 07:58 | NUR ---
DILAUDID 4MG PO PRIOR TO PT.
[2020-02-02 08:00] VITALS: BP_SYST 151; BP_SYST 181; BP_DIAS 66; BP_DIAS 84
--- NOTE | 2020-02-02 08:05 | Progress Note ---
Subjective Subjective Date Seen by Provider: Feb 02, 2020 Time Seen by Provider: 07:45 Pt states she feels well today and is eager to go home. Has been ambulating without difficulty and has been using her incentive spirometer. Still has some soreness in her right knee and in her throat. Feels that she is better able to urinate after the Bethanechol yesterday. INR today is 1.1. Review of Systems General: No Chills, No Malaise, No Appetite HEENT: No Head Aches, No Dysphasia; Sore Throat, Other (DRY THROAT) Pulmonary: No Dyspnea, No Cough Cardiovascular: No: Chest Pain, Palpitations Gastrointestinal: No: Nausea, Vomiting, Abdominal Pain Genitourinary: No Dysuria Musculoskeletal: leg pain (RIGHT KNEE PAIN) Neurological: Other (GROGGY FROM PAIN MEDICATION); No: Weakness All Other Systems Reviewed All Other Systems Reviewed: Yes (Negative excepted noted.) Objective Exam Vital Signs Vital Signs - First Documented 01/31/20 06:15 Temp 35.6 Pulse 53 Resp 18 B/P (MAP) 136/85 Pulse Ox 98 O2 Delivery Room Air Capillary Refill : Less Than 3 SecondsLess Than 3 Seconds General Appearance: No Apparent Distress, WD/WN Eyes: Bilateral Eye Normal Inspection, Bilateral Eye PERRL, Bilateral Eye EOMI HEENT: PERRL/EOMI, Normal ENT Inspection, Other (SCOPALAMINE PATCH BEHIND LEFT EAR) Neck: Full Range of Motion, Non Tender, Supple Respiratory: Chest Non Tender, Lungs Clear, Normal Breath Sounds, No Accessory Muscle Use, No Respiratory Distress Cardiovascular: Regular Rate, Rhythm, No Edema Gastrointestinal: No Pulsatile Mass, Non Tender, Soft Rectal: Deferred Back: Normal Inspection Extremity: Normal Capillary Refill, No Calf Tenderness, No Pedal Edema Neurologic/Psychiatric: Alert, Oriented x3, No Motor/Sensory Deficits, Normal Mood/Affect Skin: Normal Color, Warm/Dry Lymphatic: No Adenopathy Results Lab Laboratory Tests 02/02/20 04:25: Hemoglobin 9.3L, Hematocrit 30L, Prothrombin Time 14.8H, INR Comment 1.1 Assessment/Plan Assessment/Plan Assessment and Plan OSTEOARTHRITIS RIGHT KNEE RIGHT KNEE REPLACEMENT HYPERTENSION DIABETES MELLITUS ANTI-PHOSPHOLIPID SYNDROME WITH NEED FOR CHRONIC ANTICOAGULATION HX OF ARTERIAL CLOTS HYPOTHYROIDISM FIBROMYALGIA URINARY RETENTION OSTEOARTHRITIS RIGHT KNEE STATUS POST RIGHT KNEE REPLACEMENT - CONTINUE WITH THERAPY PER DR. GARCIA - PLANNING ON HOME HEALTH OUTPATIENT - TRANSITIONED TO ORAL MEDICATION HYPERTENSION - RESUMED HOME REGIMEN - MONITOR BLOOD PRESSURE CLOSELY DIABETES MELLITUS - RESUMED HOME REGIMEN, MONITOR FSBS ANTI-PHOSPHOLIPID SYNDROME WITH NEED FOR CHRONIC ANTICOAGULATION - RESUME COUMADIN - ONCE INR GETS TO 2 WILL DC LOVENOX HX OF ARTERIAL CLOTS - COUMADIN RESUMED HYPOTHYROIDISM - RESUME HOME REGIMEN FIBROMYALGIA - SUPPORTIVE CARE ONLY AT THIS TIME URINARY RETENTION -IMPROVED WITH BETHANECHOLE -WILL DC HOME WITH BETHANECHOLE DVT PROPHYLAXIS WITH LOVENOX, AND CONTINUED COUMADIN INR 1.1, WILL DC HOME WITH LOVENOX GI PROPHYLAXIS WITH HX JOSE Clinical Quality Measures DVT/VTE Risk/Contraindication: Risk Factor Score Per Nursin RFS Level Per Nursing on Admit: 4+=Very High VALDO DODSON MED STUDENT Feb 02, 2020 08:05
--- NOTE | 2020-02-02 08:57 | NUR ---
CM/SS finalized discharge plans. Plan: The patient is discharging home today 02/01 with [facility]. [facility]: [facility] will start therapies on Sunday 02/04. The patient's walker is in the room. No further needs at this time.
[2020-02-02] MEDS ORDERED: ENOX30DI4 SC (09:06)
[2020-02-02] MEDS ORDERED: Bethanechol Chl PO (09:06)
--- NOTE | 2020-02-02 09:59 | NUR ---
REVIEWED RX AND INSTRUCTIONS AND VERBALIZED UNDERSTANDING. DC'D PER WC WITH SPECIAL MAKEUP FX ARTIST INSTRUCTOR.
--- NOTE | 2020-02-02 10:47 | Physical Therapy Daily Note ---
PT Daily Note-Current Subjective Patient agrees to PT. Pain Numeric Pain Scale: 5-Moderate Pain Location: Right Location Body Site: Knee Pain Description: Acute Mental Status Patient Orientation: Normal For Age Transfers SCALE: Activities may be completed with or without assistive devices. 4-Rpgiafejpy-dvjmtzl completes the activity by him/herself with no assistance from a helper. 5-Set-up or Clean-up Assistance-helper sets up or cleans up; patient completes activity. [place] assists only prior to or following the activity. 4-Supervision or Touching Assistance-helper provides verbal cues and/or touching/steadying and/or contact guard assistance as patient completes activity. Assistance may be provided throughout the activity or intermittently. 3-Partial/Moderate Assistance-helper does LESS THAN HALF the effort. [place] lifts, holds or supports trunk or limbs, but provides less than half the effort. 2-Substantial/Maximal Assistance-helper does MORE THAN HALF the effort. [place] lifts or holds trunk or limbs and provides more than half the effort. 6-Ufeaolgax-xfbdnz does ALL the effort. Patient does none of the effort to complete the activity. Or, the assistance of 2 or more helpers is required for the patient to complete the activity. If activity was not attempted, code reason: 7-Patient Refused. 9-Not Applicable-not attempted and the patient did not perform the activity before the current illness, exacerbation or injury. 10-Not Attempted due to Environmental Limitations-(lack of equipment, weather restraints, etc.). 88-Not Attempted due to Medical Conditions or Safety Concerns. Sit to Lying (QC): 6 Lying to Sitting/Side of Bed(Q: 6 Sit to Stand (QC): 6 Weight Bearing Right Lower Extremity: Right Weight Bearing/Tolerated Left Lower Extremity: Left Full Weight Bearing Gait Training Does the Patient Walk?: Yes Distance: 400' Walk 10 feet (QC): 6 Walk 50 ft with 2 Turns(QC): 6 Walk 150 ft (QC): 6 Gait Assistive Device: FWW steady, reciprocal pattern Stair Training refused Exercises Supine Ex: Ankle pumps, Quad Set, Heel Slides, Straight leg raise Supine Reps: 15 Assessment Patient dismissing to home with needs met. Instructed patient to perform HEP issued by physician in preop. Patient voiced understanding. PT Senior Living Goals Senior Living Goals PT Senior Ruby Developer Goals Time Frame: Feb 07, 2020 Roll Left & Right (QC): 6 Sit to Lying (QC): 6 Lying-Sitting on Side/Bed(QC): 6 Sit to Stand (QC): 6 Chair/Gna-gi-Faxpt Xfer(QC): 6 Walk 150 ft (QC): 6 4 Steps (QC): 6 PT Plan Treatment/Plan Treatment Plan: Discontinue PT, goals met Treatment Plan: Bed Mobility, Education, Functional Activity Arnaldo, Functional Strength, Gait, Safety, Therapeutic Exercise, Transfers Treatment Duration: Feb 07, 2020 Frequency: 11 times per week Estimated Hrs Per Day: .5 hour per day Patient and/or Family Agrees t: Yes Time/GCodes Time In: 815 Time Out: 830 Total Billed Treatment Time: 15 Total Billed Treatment 1 visit FA 15 min ANDREZ CHAMBERS PT Feb 02, 2020 10:47
== END 2020-02-02 09:58 | disposition home health service (06) | DRG 470 ==
LOC: 4TH 06:00 → UNDOADMIN 06:08 → 4TH 06:08
PROVIDERS: ADMIT Orthopaedic Surgery; ATTEND Orthopaedic Surgery
PROC: 0SRC0J9 Replacement of Right Knee Joint with Synthetic Substitute, Cemented, Open Approach (ICD-10-PCS; principal; 2020-01-31 07:29)
DX: M17.11 Unilateral primary osteoarthritis, right knee (principal); D68.61 Antiphospholipid syndrome; I10 Essential (primary) hypertension; E78.5 Hyperlipidemia, unspecified; E11.9 Type 2 diabetes mellitus without complications; E03.9 Hypothyroidism, unspecified; K21.9 Gastro-esophageal reflux disease without esophagitis; F32.9 Major depressive disorder, single episode, unspecified; F41.9 Anxiety disorder, unspecified; G43.909 Migraine, unspecified, not intractable, without status migrainosus; I25.10 Atherosclerotic heart disease of native coronary artery without angina pectoris; E78.00 Pure hypercholesterolemia, unspecified; G89.29 Other chronic pain; M54.9 Dorsalgia, unspecified; M79.7 Fibromyalgia; R33.9 Retention of urine, unspecified; Z90.49 Acquired absence of other specified parts of digestive tract; Z88.5 Allergy status to narcotic agent; Z88.2 Allergy status to sulfonamides; Z87.891 Personal history of nicotine dependence
CPT/HCPCS: 36415; 73560; 80048; 82565; 82962; 85014; 85018; 85610; 86850; 86900; 86901; 94664; 94760

== ENCOUNTER → 2021-02-25 | Outpatient (CLI) | payer MEDICARE, OTHER ==
[~2021-02-25] MED LIST changes: +Bethanechol Chl PO; +DICL100G13 TP; -DICL100G31 TP; +ENOX30DI4 SC; -ENOX30DI9 SQ; +ENXP30I.3 SQ; -LISI40TA PO; +LISI40TA9 PO
--- NOTE | 2021-02-25 14:51 | Diagnostic Imaging Report ---
INDICATION: Postmenopausal. COMPARISON: None. FINDINGS: The bone mineral density of the spine, hips, and femoral necks was measured. The total T score for the spine is -2.2. This does indicate severe osteopenia. The total T score for the hips is -0.2. These values are within normal limits. The T score for the right femoral neck is -1.0 and this value is the lowest end of normal. The T score for the left femoral neck is -1.2. This does indicate mild osteopenia. AP Spine L1-L4: [BMD (g/cm2): 0.938] [T-Score: -2.2] [Z-Score: -1.2] [BMD Previous: NA] [BMD % Change: NA] LT Hip Neck: [BMD (g/cm2): 0.874] [T-Score: -1.2] [Z-Score: 0.1] LT Hip Total: [BMD (g/cm2):0.978] [T-Score:-0.2] [Z-Score: 0.8] [BMD Previous: NA] [BMD % Change: NA] RT Hip Neck: [BMD (g/cm2):0.901] [T-Score:-1.0] [Z-Score:0.3] RT Hip Total: [BMD (g/cm2):0.986] [T-score:-0.2] [Z-Score:0.9] [BMD Previous:NA] [BMD % Change:NA] *Indicates significant change from prior examination based on 95% confidence level. World Health Organization criteria for BMD interpretation classify patients as Normal (T-score at or above -1.0), Osteopenic (T-score between -1.0 and -2.5) or Osteoporotic (T-score at or below -2.5). LIMITATIONS AND MODIFICATION: None. FRACTURE RISK (FRAX SCORE): The ten year probability of (%): Major Osteoporotic Fracture: [13.9] Hip Fracture: [1.6] IMPRESSION: 1. There is severe osteopenia of the spine and mild osteopenia of the left femoral neck. 2. The T-scores for the total hips and the right femoral neck are within normal limits. 3. See below National Osteoporosis Foundation guidelines on when to potentially initiate pharmacologic therapy. Based on the National Osteoporosis Foundation Guidelines, pharmacologic treatment should be initiated in any of the following, unless clinical conditions suggest otherwise: * Any patient with prior fragility fracture of the hip or vertebrae. A spine fracture indicates 5X risk for subsequent spine fracture and 2X risk for subsequent hip fracture. * Osteoporosis (T-score <-2.5). * Postmenopausal women and men age 50 and older with low bone mass/osteopenia (T-score between -1.0 and -2.5) by DXA and 10-year major osteoporotic fracture greater than 20% or a 10-year probability of hip fracture greater than 3%. These fracture risks are supplied above in the FRAX score, if applicable. * Clinician judgement and/or patient preferences may indicate treatment for people with 10-year fracture probabilities above or below these levels. Dictated by: Dictated on workstation # [id number]
== END ==
LOC: RAD 13:30
PROVIDERS: ATTEND Nurse Practitioner Family
DX: M85.89 Other specified disorders of bone density and structure, multiple sites (principal); Z78.0 Asymptomatic menopausal state
CPT/HCPCS: 77080

== ENCOUNTER → 2021-03-28 | Outpatient (CLI) | payer MEDICARE, OTHER ==
[~2021-03-28] MED LIST changes: +HOLD METFORMIN - RECEIVED CONTRAST 20 ML VIAL IV SCH; +IOHEXOL 350 MG/ML 100 ML (OMNIPAQUE 350) VIAL IV ONE; +NS 100 ML (IVPB) BAG IV ONE
[2021-03-28 10:38] LABS: POTASSIUM 4.4 MMOL/L (3.6-5.0)
[2021-03-28 10:39] LABS: CALCIUM 9.2 MG/DL (8.5-10.1)
[2021-03-28 10:40] LABS: TOTAL PROTEIN 7.5 GM/DL (6.4-8.2)
[2021-03-28 10:42] LABS: BILIRUBIN,TOTAL 0.5 MG/DL (0.1-1.0)
[2021-03-28 10:43] LABS: CREATININE SERUM 1.1 MG/DL (0.60-1.30)
--- NOTE | 2021-03-28 13:05 | Diagnostic Imaging Report ---
CLINICAL INDICATION: Patient with autoimmune disease status post cataracts. EXAM: Axial CT scan of the orbits and sella performed with 75 cc of Omnipaque 350 IV contrast. Sagittal and coronal reformatted images are created. Auto Exposure Controls were utilized during the CT exam to meet ALARA standards for radiation dose reduction. COMPARISON: Head CT without contrast dated 12/09/2018. FINDINGS: There are postoperative changes to both globes which may be related to lens implants. Otherwise, the orbits and globes are unremarkable. The extraocular muscles are unremarkable and relatively symmetric bilaterally. There is no fluid collection, fat stranding, or inflammatory process seen. There is no significant extracranial abnormality. The sellar and suprasellar regions are unremarkable. Limited visualization of the intracranial structures show no significant abnormality. The visualized paranasal sinuses are clear. Mastoid air cells are clear. IMPRESSION: There are postoperative changes to both globes which may be related to lens implants related to cataract surgery. Otherwise, unremarkable CT scan of the orbits, globes, and sella. Dictated by: Dictated on workstation # [id number]
== END ==
LOC: RAD 11:15
PROVIDERS: ATTEND Ophthalmology
DX: H05.89 Other disorders of orbit (principal); Z86.69 Personal history of other diseases of the nervous system and sense organs
CPT/HCPCS: 36415; 70481; 80053

== ENCOUNTER → 2021-06-04 | Outpatient (CLI) | payer MEDICARE, OTHER ==
[~2021-06-04] VITALS: Ht 154.9 cm; Wt 78.9 kg
[~2021-06-04] MED LIST changes: -HOLD METFORMIN - RECEIVED CONTRAST 20 ML VIAL IV SCH; -IOHEXOL 350 MG/ML 100 ML (OMNIPAQUE 350) VIAL IV ONE; -NS 100 ML (IVPB) BAG IV ONE
== END ==
LOC: DSME 10:32
PROVIDERS: ATTEND Family Medicine
DX: E11.65 Type 2 diabetes mellitus with hyperglycemia (principal)